=== PATIENT | female | born 1970 | race Caucasian/White ===

== ENCOUNTER 2016-10-17 19:27 | Emergency (ER) ==
[2016-10-17 19:35] VITALS: BP 119/77; TEMP 97.8; BMI 27.8
--- NOTE | 2016-10-17 19:52 | ED.PDOC ---
General ED Provider: Dr. BARBARA COLBERT Chief Complaint: Bite Stated Complaint: had spider bite couple days ago on the left breast, oozing some liquied now, no fever or chills Time Seen by Physician: 19:50 Mode of Arrival: Walk-In Information Source: Patient Primary Care Provider: BARBARA COLBERT[facility] Nursing and Triage Documentation Reviewed and Agree: Yes Skin Complaint Exam - Skin/Soft Tissue Complaint/Exam Symptoms Are: Still present Timing: Constant Initial Severity: Mild Current Severity: Mild Character: Reports: Redness. Denies: Swelling, Raised, Painful Aggravating: Reports: None Alleviating: Reports: None Associated Signs and Symptoms: Reports: Tenderness. Denies: Fever, Chills, Itching, Drainage, Bruising, Red streaks, Joint swelling Skin Findings: Present: Erythema. Absent: Induration, Fluctuant mass Differential Diagnoses: Cellulitis Review of Systems - Review Of Systems Constitutional: Reports: No symptoms Eyes: Reports: No symptoms Ears, Nose, Mouth, Throat: Reports: No symptoms Respiratory: Reports: No symptoms Cardiac: Reports: No symptoms GI: Reports: No symptoms : Reports: No symptoms Musculoskeletal: Reports: No symptoms Skin: Reports: No symptoms Neurological: Reports: No symptoms Endocrine: Reports: No symptoms Hematologic/Lymphatic: Reports: No symptoms All Other Systems: Reviewed and Negative Past Medical History - Past Medical History Previously Healthy: No Endocrine: Reports: None Cardiovascular: Reports: Hypertension Respiratory: Reports: None Hematological: Reports: None Gastrointestinal: Reports: GERD Genitourinary: Reports: None Neuro/Psych: Reports: Depression Musculoskeletal: Reports: None Cancer: Reports: None Last Menstrual Period: ABLATION - Surgical History General Surgical History: Reports: Orthopedic (09/24 knee) - Family History Family History: Reports: Hypertension, Diabetes - Social History Smoking Status: Current some day smoker Smoking Cessation Counseling Time: > 3 min - 10 min Hx Substance Use: No Alcohol Screening: None - Immunizations Tetanus Shot up to Date: No Physical Exam - Physical Exam Appearance: Well-appearing, No pain distress, Well-nourished Eyes: PENNY, EOMI, Conjunctiva clear ENT: Ears normal, Nose normal, Oropharynx normal Respiratory: Airway patent, Breath sounds clear, Breath sounds equal, Respirations nonlabored Cardiovascular: RRR, Pulses normal, No rub, No murmur GI/: Soft, Nontender, No masses, Bowel sounds normal, No Organomegaly Musculoskeletal: Normal strength, ROM intact, No edema, No calf tenderness Skin: Warm, Dry, Normal color Neurological: Sensation intact, Motor intact, Reflexes intact, Cranial nerves intact, Alert, Oriented Psychiatric: Affect appropriate, Mood appropriate Critical Care Note - Critical Care Note Total Time (mins): 0 Course - Course Orders, Labs, Meds: Orders Category Date Time Status WOUND CULTURE Stat LAB 10/17/16 19:48 Uncollected Clindamycin HCl [Cleocin] MEDS 10/17/16 19:48 Stat 300 mg PO ONCE STA Medications Discontinued Medications Generic Name Dose Route Start Last Admin Trade Name Freq PRN Reason Stop Dose Admin Clindamycin HCl 300 mg 10/17/16 19:48 Cleocin PO 10/17/16 19:49 ONCE STA Vital Signs: Temp Pulse Resp BP Pulse Ox 10/17/16 19:28 97.8 F 92 H 16 119/77 96 Departure - Departure Time of Disposition: 19:53 Disposition: HOME SELF-CARE Discharge Problem: Spider bite wound Qualifiers: Encounter type: initial encounter Injury intent: accidental or unintentional Qualifier Code: (T63.301A) Toxic effect of unspecified spider venom, accidental (unintentional), initial encounter Instructions: Cellulitis (ED) Condition: Stable Pt referred to PMD for follow-up: Yes Additional Instructions: Tylenol prn Take medication with food, take probiotics f/u in [facility] in 3 days with me Prescriptions: Clindamycin HCl 300 mg PO TID #15 capsule Allergies/Adverse Reactions: Allergies No Known Allergies Allergy (Unverified 10/17/16 19:36) Home Medications: Ambulatory Orders Venlafaxine HCl [Effexor Xr] 150 mg PO BID 12/01/12 Diphenhydramine HCl [Benadryl] 25 mg PO PRN 09/10/13 Clindamycin HCl 300 mg PO TID #15 capsule 10/17/16 Disposition Discussed With: Patient, Family
[2016-10-17] MEDS: CLEOCIN PO STA (20:01)
== END 2016-10-17 20:02 | disposition home or self-care (01) ==
LOC: ED 19:27
DX: T63.301A Toxic effect of unspecified spider venom, accidental (unintentional), initial encounter (principal); L03.313 Cellulitis of chest wall; F17.210 Nicotine dependence, cigarettes, uncomplicated
CPT/HCPCS: 87070; 99283

== ENCOUNTER 2016-12-13 16:07 | Emergency (ER) ==
[2016-12-13 16:14] VITALS: BP 117/78; TEMP 98.1; BMI 26.4
[2016-12-14 11:33] VITALS: BMI 26.1
== END 2016-12-13 17:38 | disposition left against medical advice (07) ==
LOC: ED 16:07
DX: R11.2 Nausea with vomiting, unspecified (principal); R53.1 Weakness

== ENCOUNTER 2016-12-14 08:31 | Inpatient (IN) ==
[2016-12-14] MEDS ORDERED: NORCO 10-325 PO STA (08:52)
[2016-12-14] MEDS ORDERED: DECADRON 4 MG/ML SDV IM STA (08:52)
[2016-12-14 09:24] LABS: BILIRUBIN,URINE Negative (NEGATIVE); KETONES,URINE Trace (NEGATIVE); LEUKOCYTE ESTERASE ,URINE Negative (NEGATIVE); NITRITE,URINE Negative (NEGATIVE); PROTEIN,URINE Trace (NEGATIVE); URINE, BLOOD Negative (NEGATIVE)
[2016-12-14 09:25] LABS: ADD URINE MICROSCOPIC YES
--- NOTE | 2016-12-14 09:25 | DI ---
EXAM: Chest two view, frontal and lateral views. HISTORY: Cough. COMPARISON: 12/03/2010. FINDINGS: The heart size is normal. There is no pulmonary vascular congestion. The lungs are clear . No pleural effusion or pneumothorax is seen. No acute osseous abnormality identified. Since the prior study, there has been no significant interval change. IMPRESSION: No acute cardiopulmonary process.
[2016-12-14 09:26] LABS: BACTERIA,URINE TRACE (NOT PRESENT)
[2016-12-14 09:32] LABS: BASOPHILS % (AUTO) 0.1 % (0.0-3.0); HEMATOCRIT 40.4 % (37.0-47.0); HEMOGLOBIN 14.4 g/dl (12.0-16.0); LYMPHOCYTES % (AUTO) 12.7 (10.0-50.0); MEAN CORPUSCULAR HEMOGLOBIN 32.1 pg (27.0-31.0); MEAN CORPUSCULAR HGB CONC 35.6 (31.8-35.4); MEAN CORPUSCULAR VOLUME 90.2 fl (81.0-99.0); MONOCYTES # (AUTO) 0.3 K/uL (0.4-2.0); MONOCYTES % (AUTO) 4.3 (0-10); NEUTROPHILS # (AUTO) 6.5 K/ul (2.0-6.9); NEUTROPHILS % (AUTO) 82.5; PLATELET COUNT 84 10^3/uL (140-440); RED BLOOD COUNT 4.48 10^6/ul (4.20-5.40); WHITE BLOOD COUNT 7.93 K/ul (4.6-10.2)
--- NOTE | 2016-12-14 09:33 | CT ---
EXAM: CT scan of the head without contrast HISTORY: Pain TECHNIQUE: Imaging of the head was performed without contrast. 5 mm thin axial images and coronal a nd sagittal images were provided for interpretation. FINDINGS: The thomas-white interface appears normal. No acute hemorrhages are seen. There is no mass effect. The basal cisterns are patent. The paranasal sinuses and mastoid air cells are clear. The calvarium and extracranial soft tissues are normal. IMPRESSION: No acute intracranial abnormalities are seen.
[2016-12-14 09:37] LABS: FLU INTERNAL QC INTERNAL QC VALID; RAPID FLU A NEGATIVE (NEGATIVE); RAPID FLU B NEGATIVE (NEGATIVE)
[2016-12-14 09:37] LABS: ANION GAP 13.7; BILIRUBIN,TOTAL 0.29 mg/dL (0.00-1.20); BUN/CREATININE RATIO 8.1; CALCIUM 8.9 mg/dL (8.2-10.2); CREATININE 0.74 mg/dL (0.60-1.30); POTASSIUM 2.7 mmol/L (3.5-5.10)
[2016-12-14 09:38] LABS: ALBUMIN 3.5 g/dL (3.4-5.0); ALBUMIN/GLOBULIN RATIO 0.97; TOTAL PROTEIN 7.1 g/dL (6.4-8.2)
--- NOTE | 2016-12-14 10:04 | ED.PDOC ---
General ED Provider: Dr. HIEN LAGUNAS Chief Complaint: Headache Stated Complaint: headache Time Seen by Physician: 08:45 Mode of Arrival: Walk-In Information Source: Patient Exam Limitations: No limitations [facility] and T[facility] Documentation Reviewed and Agree: Yes (seen with nursing staff at all times ) Neurological Complaint Exam - Headache Complaint/Exam Onset: Gradual Duration: 10 days flu like symptoms Symptoms Are: Still present Timing: Intermittent Episodes Lasting: Days Worst Headache Ever: No Initial Severity: Moderate Current Severity: Moderate Location: Frontal, Temporal Character: Reports: Dull, Typical headache Aggravating: Reports: None Alleviating: Reports: None Associated Signs and Symptoms: Reports: Nausea, Vomiting (x3). Denies: Dizziness, Seizure, Sinus pressure, Fever, Neck pain, Neck stiffness, Decreased LOC, Visual changes Related History: Reports: Similar episode Related Surgical History: Reports: None SAH Risk Factors: Reports: None Meningitis Risk Factors: Reports: None SDH Risk Factors: Reports: None Temporal Arteritis Risk Factors: Reports: Female, Normal Head CT Within Last 12 Months: No (none reported ) Fundoscopic Exam: Present: Normal Findings (nurse at bedside ) Papilledema Present: No Temporal Artery Tenderness: Present: None Sinus Tenderness: Present: None TMJ Tenderness: Present: None Glascow Coma Scale (see protocol): 15 Meningeal Signs Positive: No Pain on Passive Flexion-Positive Kernig's: No ROM Limited In: No Limitiations Focal Weakness: Present: None Focal Sensory Loss: Present: None Gait: Normal Nystagmus Present: No Gag Reflex Present: Yes Differential Diagnoses: Migraine, Viral Syndrome Review of Systems - Review Of Systems Constitutional: Reports: Malaise, Weakness Eyes: Reports: No symptoms Ears, Nose, Mouth, Throat: Reports: No symptoms Respiratory: Reports: No symptoms Cardiac: Reports: No symptoms GI: Reports: Nausea, Vomiting : Reports: No symptoms Musculoskeletal: Reports: No symptoms Skin: Reports: No symptoms Neurological: Reports: Headache Endocrine: Reports: No symptoms Hematologic/Lymphatic: Reports: No symptoms All Other Systems: Reviewed and Negative Past Medical History - Past Medical History Previously Healthy: No Endocrine: Reports: None Cardiovascular: Reports: Hypertension Respiratory: Reports: None Hematological: Reports: None Gastrointestinal: Reports: GERD Genitourinary: Reports: None Neuro/Psych: Reports: Depression Musculoskeletal: Reports: None Cancer: Reports: None Last Menstrual Period: ablation - Surgical History General Surgical History: Reports: Orthopedic (09/24 knee) - Family History Family History: Reports: Hypertension, Diabetes - Social History Smoking Status: Current every day smoker, Light tobacco smoker Hx Substance Use: No Alcohol Screening: None Physical Exam - Physical Exam Appearance: Well-appearing, No pain distress, Well-nourished Eyes: PENNY, EOMI, Conjunctiva clear ENT: Ears normal, Nose normal, Oropharynx normal Respiratory: Airway patent, Breath sounds clear, Breath sounds equal, Respirations nonlabored Cardiovascular: RRR, Pulses normal, No rub, No murmur GI/: Soft, Nontender, No masses, Bowel sounds normal, No Organomegaly Musculoskeletal: Normal strength, ROM intact, No edema, No calf tenderness Skin: Warm, Dry, Normal color Neurological: Sensation intact, Motor intact, Reflexes intact, Cranial nerves intact, Alert, Oriented Psychiatric: Affect appropriate, Mood appropriate Interpretation - Radiology Interpretation Radiology Interpretation By: Radiologist Radiology Results: No acute changes Physician Notification - Case Discussed Physician Notified: tenzin Time of Notification: 10:04 (admitt) Admit To: Inpatient Critical Care Note - Critical Care Note Total Time (mins): 0 Course - Course Hematology/Chemistry: 12/14/16 08:55 12/14/16 08:55 Orders, Labs, Meds: Lab Review 12/14/16 12/14/16 12/14/16 08:50 08:55 08:55 WBC 7.93 RBC 4.48 Hgb 14.4 Hct 40.4 MCV 90.2 MCH 32.1 H MCHC 35.6 H RDW Coeff of Michael 13.2 Plt Count 84 L Immature Gran % (Auto) 0.0 Neut % (Auto) 82.5 Lymph % (Auto) 12.7 [place] % (Auto) 4.3 Eos % (Auto) 0.0 Baso % (Auto) 0.1 Immature Gran # (Auto) 0.0 Neut # 6.5 Lymph # 1.0 [place] # 0.3 L Eos # 0.0 Baso # 0.0 Sodium 134 L Potassium 2.7 L* Chloride 96 L Carbon Dioxide 27 Anion Gap 13.7 BUN 6 L Creatinine 0.74 Estimated GFR (MDRD) 84.00 BUN/Creatinine Ratio 8.10 Glucose 106 Calcium 8.9 Total Bilirubin 0.29 AST 23 ALT 27 Alkaline Phosphatase 87 Total Protein 7.1 Albumin 3.5 Globulin 3.6 Albumin/Globulin Ratio 0.97 Urine Color Urine Clarity Urine pH Ur Specific [place] Urine Protein Urine Glucose (UA) Urine Ketones Urine Blood Urine Nitrite Urine Bilirubin Urine Urobilinogen Ur Leukocyte Esterase Urine Microscopic WBC Ur Squamous Epith Cells Amorphous Sediment Urine Bacteria Influenza A (Rapid) Negative Influenza B (Rapid) Negative 12/14/16 08:55 WBC RBC Hgb Hct MCV MCH MCHC RDW Coeff of Michael Plt Count Immature Gran % (Auto) Neut % (Auto) Lymph % (Auto) [place] % (Auto) Eos % (Auto) Baso % (Auto) Immature Gran # (Auto) Neut # Lymph # [place] # Eos # Baso # Sodium Potassium Chloride Carbon Dioxide Anion Gap BUN Creatinine Estimated GFR (MDRD) BUN/Creatinine Ratio Glucose Calcium Total Bilirubin AST ALT Alkaline Phosphatase Total Protein Albumin Globulin Albumin/Globulin Ratio Urine Color Yellow Urine Clarity Clear Urine pH 6.0 Ur Specific [place] 1.015 Urine Protein Trace Urine Glucose (UA) Negative Urine Ketones Trace Urine Blood Negative Urine Nitrite Negative Urine Bilirubin Negative Urine Urobilinogen 0.2 Ur Leukocyte Esterase Negative Urine Microscopic WBC 2-5 Ur Squamous Epith Cells 10-20 Amorphous Sediment 1+ Urine Bacteria Trace Influenza A (Rapid) Influenza B (Rapid) Orders Category Date Time Status CBC W/ AUTO DIFF Stat LAB 12/14/16 08:51 Ordered COMPREHENSIVE METABOLIC PANEL Stat LAB 12/14/16 08:51 Ordered MOLECULAR GROUP A STREP Stat LAB 12/14/16 08:50 Results RAPID FLU A/B Stat LAB 12/14/16 08:52 Uncollected STREP SCREEN Stat LAB 12/14/16 08:52 Uncollected URINALYSIS C & S IF INDICATED Stat LAB 12/14/16 08:51 Uncollected Dexamethasone 4 mg/ml Inj [Decadron 4 mg/ml Sdv] MEDS 12/14/16 08:52 Stat 4 mg IM ONCE STA Hydrocodone Bit/Acetaminophen [[place] 10-325] MEDS 12/14/16 08:52 Stat 1 tab PO ONCE STA CHEST, 2 VIEWS PA & LAT Stat RADS 12/14/16 08:[address] HEAD W/O CONTRAST Stat RADS 12/14/16 08:51 Ordered Medications Discontinued Medications Generic Name Dose Route Start Last Admin Trade Name Freq PRN Reason Stop Dose Admin Acetaminophen/Hydrocodone Bitart 1 tab 12/14/16 08:52 12/14/16 09:22 [place] 10-325 PO 12/14/16 08:53 1 tab ONCE STA Administration Dexamethasone Sodium Phosphate 4 mg 12/14/16 08:52 12/14/16 09:24 Decadron 4 Mg/Ml Sdv IM 12/14/16 08:53 4 mg ONCE STA Administration Vital Signs: Temp Pulse Resp BP Pulse Ox 12/14/16 08:42 99.6 F 127 H 20 107/64 90 L Departure - Departure Time of Disposition: 10:04 Disposition: ADMITTED INPATIENT Discharge Problem: Headache, Hypokalemia Instructions: Acute Headache (ED) Condition: Good Pt referred to PMD for follow-up: Yes Additional Instructions: Please call your Family Physician as soon as possible to schedule a follow-up appointment. Allergies/Adverse Reactions: Allergies Latex, Natural Rubber Adverse Reaction (Verified 12/14/16 08:47) Home Medications: Ambulatory Orders Venlafaxine HCl [Effexor Xr] 150 mg PO BID 12/01/12 Diphenhydramine HCl [Benadryl] 25 mg PO PRN 09/10/13 Disposition Discussed With: Patient
[2016-12-14] MEDS ORDERED: POTASSIUM CHLORIDE PREMIX RUN 10 MEQ in PREMIX 100 ML WATER 1 BAG IV STA (10:08)
[2016-12-14] MEDS ORDERED: SODIUM CHLORIDE 1,500 ML IV SCH (10:30)
[2016-12-14] MEDS ORDERED: POTASSIUM CHLORIDE PREMIX RUN 100 ML IV ONE (10:37)
[2016-12-14 11:33] VITALS: BMI 26.1
[2016-12-14] MEDS ORDERED: EFFEXOR XR PO SCH (12:00)
[2016-12-14] MEDS: ZOFRAN 4 MG/2 ML IVP PRN (12:13)
[2016-12-14] MEDS ORDERED: NON-FORMULARY MEDICATION (Alprazolam [Xanax] 1 MG) PO SCH ×22 (13:00)
[2016-12-14] MEDS ORDERED: XANAX PO SCH (13:00)
[2016-12-14 13:34] LABS: ANION GAP 13.2; BUN/CREATININE RATIO 8.21; CALCIUM 8.6 mg/dL (8.2-10.2); CREATININE 0.73 mg/dL (0.60-1.30); POTASSIUM 3.2 mmol/L (3.5-5.10)
[2016-12-14] MEDS: XANAX PO SCH ×3 (14:32→20:39)
[2016-12-14] MEDS ORDERED: DUONEB NEB ONE (16:55)
[2016-12-14] MEDS: PREDNISONE PO SCH (17:19)
[2016-12-14] MEDS: DUONEB NEB SCH ×2 (17:34→23:07)
[2016-12-14] MEDS: SODIUM CHLORIDE 1,000 ML IV SCH ×2 (18:01→20:44)
[2016-12-14] MEDS: EFFEXOR XR PO SCH (20:38)
[2016-12-14] MEDS ORDERED: NON-FORMULARY MEDICATION (Venlafaxine Hcl [Effexor Xr] 150 MG) PO SCH ×22 (21:00)
[2016-12-15] MEDS: DUONEB NEB SCH ×4 (04:58→23:19)
[2016-12-15 05:18] LABS: BASOPHILS % (AUTO) 0.1 % (0.0-3.0); HEMATOCRIT 36.3 % (37.0-47.0); HEMOGLOBIN 12.5 g/dl (12.0-16.0); IMMATURE GRANULOCYTE % (AUTO) 0.4 % (0.0-5.0); LYMPHOCYTES # (AUTO) 1.1 K/uL (0.60-3.4); LYMPHOCYTES % (AUTO) 12.7 (10.0-50.0); MEAN CORPUSCULAR HEMOGLOBIN 31.4 pg (27.0-31.0); MEAN CORPUSCULAR HGB CONC 34.4 (31.8-35.4); MEAN CORPUSCULAR VOLUME 91.2 fl (81.0-99.0); MONOCYTES # (AUTO) 0.4 K/uL (0.4-2.0); MONOCYTES % (AUTO) 5.1 (0-10); NEUTROPHILS % (AUTO) 81.7; PLATELET COUNT 92 10^3/uL (140-440); RED BLOOD COUNT 3.98 10^6/ul (4.20-5.40); WHITE BLOOD COUNT 8.57 K/ul (4.6-10.2)
[2016-12-15 05:38] LABS: ALBUMIN/GLOBULIN RATIO 0.81; ANION GAP 11.3; BILIRUBIN,TOTAL 0.25 mg/dL (0.00-1.20); BUN/CREATININE RATIO 9.23; CALCIUM 8.7 mg/dL (8.2-10.2); CREATININE 0.65 mg/dL (0.60-1.30); POTASSIUM 3.3 mmol/L (3.5-5.10); TOTAL PROTEIN 6.7 g/dL (6.4-8.2)
[2016-12-15] MEDS ORDERED: DECADRON 4 MG/ML SDV IM STA (08:23)
[2016-12-15] MEDS ORDERED: POTASSIUM CHLORIDE PREMIX RUN 40 MEQ in PREMIX 100 ML WATER 2 BAG IV STA (08:23)
[2016-12-15] MEDS ORDERED: SODIUM CHLORIDE 0.9%-KCL 20 MEQ 1,000 ML IV SCH (08:30)
[2016-12-15] MEDS: EFFEXOR XR PO SCH ×2 (09:02→20:08)
[2016-12-15] MEDS: PREDNISONE PO SCH ×2 (09:02→17:27)
[2016-12-15] MEDS: ZOFRAN 4 MG/2 ML IVP PRN ×2 (09:23→18:59)
[2016-12-15] MEDS: MUCINEX PO SCH ×2 (09:24→20:08)
[2016-12-15] MEDS ORDERED: ZOFRAN 4 MG/2 ML IVP STA (12:00)
[2016-12-15] MEDS: XANAX PO SCH ×4 (13:05→20:09)
[2016-12-15] MEDS: SODIUM CHLORIDE 1,000 ML IV SCH (15:07)
[2016-12-16] MEDS: DUONEB NEB SCH (04:48)
[2016-12-16 05:15] VITALS: BP 116/79; TEMP 96.8
[2016-12-16 06:04] LABS: HEMOGLOBIN 11.7 g/dl (12.0-16.0); IMMATURE GRANULOCYTE % (AUTO) 0.4 % (0.0-5.0); LYMPHOCYTES # (AUTO) 0.9 K/uL (0.60-3.4); LYMPHOCYTES % (AUTO) 9.2 (10.0-50.0); MEAN CORPUSCULAR HEMOGLOBIN 31.6 pg (27.0-31.0); MEAN CORPUSCULAR HGB CONC 34.4 (31.8-35.4); MEAN CORPUSCULAR VOLUME 91.9 fl (81.0-99.0); MONOCYTES # (AUTO) 0.4 K/uL (0.4-2.0); MONOCYTES % (AUTO) 4.2 (0-10); NEUTROPHILS # (AUTO) 8.5 K/ul (2.0-6.9); NEUTROPHILS % (AUTO) 86.2; PLATELET COUNT 103 10^3/uL (140-440); WHITE BLOOD COUNT 9.84 K/ul (4.6-10.2)
[2016-12-16 06:18] LABS: ALBUMIN 2.9 g/dL (3.4-5.0); ALBUMIN/GLOBULIN RATIO 0.76; ANION GAP 7.5; BILIRUBIN,TOTAL 0.22 mg/dL (0.00-1.20); BUN/CREATININE RATIO 7.69; CALCIUM 8.9 mg/dL (8.2-10.2); CREATININE 0.65 mg/dL (0.60-1.30); POTASSIUM 3.5 mmol/L (3.5-5.10); TOTAL PROTEIN 6.7 g/dL (6.4-8.2)
[2016-12-16] MEDS: EFFEXOR XR PO SCH (08:42)
[2016-12-16] MEDS: XANAX PO SCH (08:42)
[2016-12-16] MEDS: PREDNISONE PO SCH (08:42)
[2016-12-16] MEDS: MUCINEX PO SCH (08:42)
--- NOTE | 2016-12-16 14:07 | HP ---
DATE OF SERVICE: 12/14/16 CHIEF COMPLAINT: Nausea and vomiting HISTORY OF PRESENT ILLNESS: This is a 46 year old female who started having the upper respiratory infection and started getting better then started with the vomiting and vomiting whatever she was eating; nonbloody and nonbilious. Diarrhea was watery and non bloody and abdominal cramps. She came to the emergency room with headaches and dehydration like symptoms. She was seen by Dr. Vernon in the emergency room. Potassium was 2.7, BUN 6. Chest x-ray and CT head was negative. At that time the patient was admitted to the hospital for the IV fluids and upper respiratory infection and intractable nausea and vomiting. REVIEW OF SYSTEMS: CONSTITUTIONAL: No fever, no chills. Weakness and tiredness. HEENT: Normal. ENDOCRINE: No weight gain; no weight loss. CVS: No chest pain. No PND, no orthopnea. No shortness of breath. No PND, no orthopnea. RESPIRATORY: Coughing and congestion. No hemoptysis. GI: Nausea and vomiting. No melena. Diarrhea and abdominal cramps. : No hematuria. No polyuria. MUSCULOSKELETAL: No joint swelling. PSYCHIATRIC: Not anxious. No depression. No suicidal thoughts. No homicidal thoughts. SKIN: Intact, no open lesions. PAST MEDICAL HISTORY: Hypertension Dyslipidemia Sleep apnea on CPAP GERD Osteoarthritis DJD spine Depression Anxiety PAST SURGICAL HISTORY: Knee surgery Ablation Tubal ligation PERSONAL HISTORY: The patient does not smoke or drink. Family history is significant for the heart problems and diabetes. MEDICATIONS: Effexor Benadryl Vistaril Xanax Cyclobenzaprine Hyzaar ALLERGIES: Latex Natural rubber PHYSICAL EXAMINATION: V/S: Blood pressure 124/74, respiratory rate 20, heart rate 62, saturation 96 on the room air. HEENT: Atraumatic, normocephalic. No scleral icterus. Pallor positive. Mucosa dry. NECK: Supple. No JVD, no bruit. No lymphadenopathy. No thyromegaly. HEART: S1, S2 normal. No murmur. No cyanosis or clubbing. No ascites. LUNGS: Decreased and basilar crackles. Clear to auscultation. No rales or rhonchi. ABDOMEN: Soft, nontender. Bowel sounds are active. No CVA tenderness. No rigidity or guarding. EXTREMITIES: No cyanosis, clubbing or pedal edema. MUSCULOSKELETAL: Normal joints, no swelling. NEUROLOGIC: The patient is SKIN: Intact; no open lesions. LYMPHATIC: No lymph nodes palpable. LABS: Sodium 134, potassium 2.7, chloride 96, bicarb 27, BUN 6, creatinine 0.74, WBC 7.93, hgb 14.4, hct 40.4, plt count 84. ASSESSMENT: 1. Severe hypokalemia 2. Dehydration 3. Upper respiratory infections 4. Coronary artery disease 5. Hypertension 6. Dyslipidemia 7. Depression 8. Anxiety PLAN: 1. Admit the patient to the regular floor 2. CBC and CMP today and daily 3. Cardiac enzymes and Troponin 4. Decadron 5. DUO NEBS 6. IV fluids, replace potassium 7. Daily I&O's Will follow the patient in daily rounds. TIME SPENT: MORE THAN 70 minutes [id number]
--- NOTE | 2016-12-19 08:27 | PN ---
DATE OF SERVICE: 12/15/16 SUBJECTIVE: The patient was admitted with severe hypokalemia, gastroenteritis and respiratory infection. Potassium is 3.3 and still having cough and congestion getting lots of phlegm. REVIEW OF SYSTEMS: CONSTITUTIONAL: No fever, no chills. HEENT: Normal. ENDOCRINE: No weight gain, no weight loss. CVS: No angina symptoms. No CHF symptoms. No palpitations. No atypical chest pain for CAD. No shortness of breath. No PND, no orthopnea. RESPIRATORY: No cough, no hemoptysis. GI: No nausea, no vomiting. No abdominal pain. : No hematuria. No polyuria. MUSCULOSKELETAL:. No joint swelling. PSYCHIATRIC: Not anxious. No depression. No suicidal thoughts. No homicidal thoughts. SKIN: Intact. No rash. PHYSICAL EXAMINATION: V/S: Blood pressure 120/70, respiratory rate 20, heart rate 90, temperature 98.2 with saturation 97%. HEENT: Normocephalic, atraumatic. Mucosa . NECK: Supple. No JVD, no carotid bruit. No lymphadenopathy. LUNGS: Bilateral lungs basilar crackles are present. No rales or rhonchi. HEART: S1, S2 normal. No S3. No murmur, gallop or regurgitation. ABDOMEN: Soft, nontender. Bowel sounds active. No rigidity. No rebound or guarding. No CVA tenderness. EXTREMITIES: No clubbing, cyanosis or pedal edema. MUSCULOSKELETAL: No joint swelling. NEUROLOGIC: Awake, alert, oriented times three. No focal deficit. LYMPHATIC: No lymph nodes palpable. SKIN: Intact. LABS: Sodium 137, Potassium 3.3, chloride 100, bicarb 29, BUN 6, creatinine 0.65, WBC 8.57, hgb 12.5, hct 26.3, plt count 92. ASSESSMENT: 1. Status post gastroenteritis 2. Dehydration 3. Severe hypokalemia which is getting better 4. Upper respiratory infection 5. Thrombocytopenia PLAN: 1. IV fluids with potassium 2. Continue the breathing treatments and steroids 3. Mucinex Will follow the patient in daily rounds. TIME SPENT: More than 35 minutes MTDD
--- NOTE | 2017-01-24 08:22 | DS ---
DATE OF SERVICE: 12/16/16 FINAL DIAGNOSIS: 1. Severe hypokalemia 2. Upper respiratory infection 3. Gastritis 4. Anxiety 5. Depression 6. Panic attacks, sees Dr. Celaya 7. Hypertension 8. Chronic back pain 9. Knee surgery 09/26 10. Tubal ligation 11. Uterine ablation 12.History of smoker DISCHARGE INSTRUCTIONS: Continue the rest of the home medications. MEDICATIONS AT DISCHARGE: Cozaar Atrovent Cyclobenzaprine Xanax Effexor NEW PRESCRIPTIONS: Atrovent two puffs three times a day PRN Prednisone 10mg twice a day Keflex 500mg Q 12 hours. DIET INSTRUCTIONS: Soft, increase the diet as tolerated ACTIVITY: as much as tolerated SMOKING: Former Smoker DISEASE SPECIFIC EDUCATION: Severe hypokalemia Coronary side effects been discussed and verbalized understanding. HOSPITAL COURSE: Lexie Lopez who has been having some upper respiratory infection cough and congestion and then her migraine headache was started. Then she started vomiting and not able to keep anything down came to the emergency room and potassium was 2.7, BUN and creatinine was normal, Urine negative, serology was negative and at that time the patient was admitted to the hospital for severe hypokalemia and upper respiratory infection. Potassium been replaced, Zofran was given, Dexamethasone was given and DUO NEBS was given. With the breathing treatments and steroids that patient started feeling better. Zofran did really help the patient, vomiting resolved. Potassium came from 2.7 to 3.2, 3.3 and 3.5. The patient was able to keep the appetite, soft diet and did not have any problems. At that time the patient being discharged home. TIME SPENT: MORE THAN 55-60 MINUTES [facility]
== END 2016-12-16 09:35 | disposition home or self-care (01) | DRG 641 ==
LOC: ED 08:31 → MEDSURG B 10:39
PROVIDERS: ADMIT Emergency Medicine; ATTEND Emergency Medicine
DX: E87.6 Hypokalemia (principal); J06.9 Acute upper respiratory infection, unspecified; E86.0 Dehydration; K29.70 Gastritis, unspecified, without bleeding; G43.909 Migraine, unspecified, not intractable, without status migrainosus; D69.6 Thrombocytopenia, unspecified; I10 Essential (primary) hypertension; F41.8 Other specified anxiety disorders; F41.0 Panic disorder [episodic paroxysmal anxiety]; M54.9 Dorsalgia, unspecified; G89.29 Other chronic pain; F17.200 Nicotine dependence, unspecified, uncomplicated
CPT/HCPCS: 36415; 80048; 80053; 81001; 85025; 87651; 87804; 87880; 93005; 93010; 94640; 96365; 99284

== ENCOUNTER 2016-12-19 17:38 | Inpatient (IN) ==
[2016-12-19] MEDS ORDERED: ZOFRAN 4 MG/2 ML IV STA (17:50)
[2016-12-19] MEDS ORDERED: DILAUDID 1 MG/ML SYRINGE IVP STA ×2 (17:50→19:40)
[2016-12-19] MEDS ORDERED: DILAUDID 1 MG/ML SYRINGE ONE (17:51)
[2016-12-19] MEDS ORDERED: ZOFRAN 4 MG/2 ML ONE (17:51)
--- NOTE | 2016-12-19 18:01 | ED.PDOC ---
General ED Provider: Dr. HIEN LAGUNAS Chief Complaint: Headache Stated Complaint: headache Time Seen by Physician: 17:40 (sudden severe head ache 1 hr ago) Mode of Arrival: Ambulance Information Source: Patient, Family Exam Limitations: No limitations Primary Care Provider: BARBARA CAMPBELL Referred to ED by: Other (last eaten about 2:30 pm, ) Nursing and Triage Documentation Reviewed and Agree: Yes (she had just taken a bath about to watch tv ) Neurological Complaint Exam - Headache Complaint/Exam Onset: Gradual Duration: headache started 1 hr ago at rest Symptoms Are: Still present (discharged from hospital on monday was admitted for hyokalemia) Timing: Constant (x 1 hr) Episodes Lasting: Minutes (1 hr) Worst Headache Ever: Yes Initial Severity: Severe Current Severity: Severe Location: Diffuse Character: Reports: Throbbing Aggravating: Reports: None, Bright lights Alleviating: Reports: Medications Associated Signs and Symptoms: Reports: Nausea (no head injury). Denies: Dizziness, Seizure, Vomiting, Sinus pressure, Fever, Neck pain (no actual fall stated she went down), Neck stiffness, Decreased LOC, Visual changes Related History: Reports: Recent trauma (is possible ) Related Surgical History: Reports: None SAH Risk Factors: Reports: Family history (her mother had a brain aneurysm) SDH Risk Factors: Reports: None Temporal Arteritis Risk Factors: Reports: Female, Normal Head CT Within Last 12 Months: No Fundoscopic Exam: Present: Normal Findings Papilledema Present: No Temporal Artery Tenderness: Present: None Sinus Tenderness: Present: None TMJ Tenderness: Present: None Glascow Coma Scale (see protocol): 15 Meningeal Signs Positive: No Pain on Passive Flexion-Positive Kernig's: No ROM Limited In: No Limitiations Focal Weakness: Present: None Focal Sensory Loss: Present: None Gait: Normal Nystagmus Present: No Gag Reflex Present: Yes [id number]: Normal Findings Romberg Test Positive: No (unable) Babinski Sign: Negative Right, Negative Left Differential Diagnoses: Migraine, Subarachnoid Hemorrhage, Tension Headache Review of Systems - Review Of Systems Constitutional: Reports: No symptoms Eyes: Reports: No symptoms Ears, Nose, Mouth, Throat: Reports: No symptoms Respiratory: Reports: No symptoms Cardiac: Reports: No symptoms GI: Reports: Nausea, Vomiting : Reports: No symptoms Musculoskeletal: Reports: No symptoms Skin: Reports: No symptoms Neurological: Reports: Headache Endocrine: Reports: No symptoms Hematologic/Lymphatic: Reports: No symptoms All Other Systems: Reviewed and Negative Past Medical History - Past Medical History Previously Healthy: No Endocrine: Reports: None Cardiovascular: Reports: Hypertension Respiratory: Reports: None Hematological: Reports: None Gastrointestinal: Reports: GERD Genitourinary: Reports: None Neuro/Psych: Reports: Depression Musculoskeletal: Reports: None Cancer: Reports: None Last Menstrual Period: n/a - Surgical History General Surgical History: Reports: Orthopedic (09/24 knee) - Family History Family History: Reports: Hypertension, Diabetes - Social History Smoking Status: Current every day smoker, Light tobacco smoker Hx Substance Use: No Alcohol Screening: None Physical Exam - Physical Exam Appearance: Well-appearing, No pain distress, Well-nourished Eyes: PENNY, EOMI, Conjunctiva clear ENT: Ears normal, Nose normal, Oropharynx normal Respiratory: Airway patent, Breath sounds clear, Breath sounds equal, Respirations nonlabored Cardiovascular: RRR, Pulses normal, No rub, No murmur GI/: Soft, Nontender, No masses, Bowel sounds normal, No Organomegaly Musculoskeletal: Normal strength, ROM intact, No edema, No calf tenderness Skin: Warm, Dry, Normal color Neurological: Sensation intact, Motor intact, Reflexes intact, Cranial nerves intact, Alert, Oriented Psychiatric: Affect appropriate, Mood appropriate Physician Notification - Case Discussed Physician Notified: tenzin Time of Notification: 19:00 Critical Care Note - Critical Care Note Total Time (mins): 0 Course - Course Hematology/Chemistry: 12/20/16 01:50 12/20/16 01:50 Orders, Labs, Meds: Lab Review 12/19/16 12/19/16 12/19/16 18:00 18:00 18:00 WBC 13.42 H RBC 4.22 Hgb 13.4 Hct 37.2 MCV 88.2 MCH 31.8 H MCHC 36.0 H RDW Coeff of Michael 12.9 Plt Count 304 Immature Gran % (Auto) 1.3 Neut % (Auto) 74.8 Lymph % (Auto) 17.5 [place] % (Auto) 6.2 Eos % (Auto) 0.1 Baso % (Auto) 0.1 Immature Gran # (Auto) 0.2 Neut # 10.0 H Lymph # 2.4 [place] # 0.8 Eos # 0.0 Baso # 0.0 APTT Sodium 138 Potassium 2.3 L* Chloride 97 L Carbon Dioxide 26 Anion Gap 17.3 BUN 9 Creatinine 0.83 Estimated GFR (MDRD) 74.00 BUN/Creatinine Ratio 10.84 Glucose 108 Lactic Acid Calcium 9.5 Magnesium Total Bilirubin 0.48 AST 11 L ALT 20 Alkaline Phosphatase 67 Total Creatine Kinase 46 Troponin I 0.0190 Total Protein 7.2 Albumin 3.2 L Globulin 4.0 Albumin/Globulin Ratio 0.80 Procalcitonin < 0.05 Influenza A (Rapid) Influenza B (Rapid) 12/19/16 12/19/16 12/19/16 18:00 18:00 18:30 WBC RBC Hgb Hct MCV MCH MCHC RDW Coeff of Michael Plt Count Immature Gran % (Auto) Neut % (Auto) Lymph % (Auto) [place] % (Auto) Eos % (Auto) Baso % (Auto) Immature Gran # (Auto) Neut # Lymph # [place] # Eos # Baso # APTT 22.5 L Sodium Potassium Chloride Carbon Dioxide Anion Gap BUN Creatinine Estimated GFR (MDRD) BUN/Creatinine Ratio Glucose Lactic Acid 14.2 Calcium Magnesium 1.3 L Total Bilirubin AST ALT Alkaline Phosphatase Total Creatine Kinase Troponin I Total Protein Albumin Globulin Albumin/Globulin Ratio Procalcitonin Influenza A (Rapid) Influenza B (Rapid) 12/19/16 18:40 WBC RBC Hgb Hct MCV MCH MCHC RDW Coeff of Michael Plt Count Immature Gran % (Auto) Neut % (Auto) Lymph % (Auto) [place] % (Auto) Eos % (Auto) Baso % (Auto) Immature Gran # (Auto) Neut # Lymph # [place] # Eos # Baso # APTT Sodium Potassium Chloride Carbon Dioxide Anion Gap BUN Creatinine Estimated GFR (MDRD) BUN/Creatinine Ratio Glucose Lactic Acid Calcium Magnesium Total Bilirubin AST ALT Alkaline Phosphatase Total Creatine Kinase Troponin I Total Protein Albumin Globulin Albumin/Globulin Ratio Procalcitonin Influenza A (Rapid) Negative Influenza B (Rapid) Negative Orders Category Date Time Status ADMIT PATIENT INPATIENT .TO [facility] (MONITORED BED) ADMISSION 12/19/16 19: 19 Active EKG-(ED ONLY) Stat CARDIO 12/19/16 18:01 Completed EKG-(ED ONLY) Stat CARDIO 12/19/16 18:57 Completed EKG-(IP & OP ONLY) DAILY CARDIO 12/20/16 06:00 Completed EKG-(IP & OP ONLY) DAILY CARDIO 12/21/16 06:00 Ordered NEBULIZER TREATMENT Routine CARDIO 12/19/16 19:21 Active OXYGEN Routine CARDIO 12/19/16 19:20 Active ACTIVITY .BR with BRP CARE 12/19/16 19:19 Active INTAKE & OUTPUT Q8HR CARE 12/19/16 19:19 Active TELEMETRY MONITORING TELE CARE 12/19/16 19:19 Active VITAL SIGNS Q4HR CARE 12/19/16 19:19 Active NOTHING BY MOUTH DIETARY 12/19/16 Breakfast Ordered BLOOD CULTURE Stat LAB 12/19/16 18:40 Received CBC W/ AUTO DIFF DAILY@0600 LAB 12/20/16 01:50 Completed CBC W/ AUTO DIFF DAILY@0600 LAB 12/21/16 06:00 Ordered CBC W/ AUTO DIFF DAILY@0600 LAB 12/22/16 06:00 Ordered CBC W/ AUTO DIFF DAILY@0600 LAB 12/23/16 06:00 Ordered CBC W/ AUTO DIFF DAILY@0600 LAB 12/24/16 06:00 Ordered CBC W/ AUTO DIFF DAILY@0600 LAB 12/25/16 06:00 Ordered CBC W/ AUTO DIFF DAILY@0600 LAB 12/26/16 06:00 Ordered CBC W/ AUTO DIFF DAILY@0600 LAB 12/27/16 06:00 Ordered CBC W/ AUTO DIFF DAILY@0600 LAB 12/28/16 06:00 Ordered CBC W/ AUTO DIFF DAILY@0600 LAB 12/29/16 06:00 Ordered CBC W/ AUTO DIFF DAILY@0600 LAB 12/30/16 06:00 Ordered CBC W/ AUTO DIFF DAILY@0600 LAB 12/31/16 06:00 Ordered CBC W/ AUTO DIFF DAILY@0600 LAB 01/01/17 06:00 Ordered CBC W/ AUTO DIFF DAILY@0600 LAB 01/02/17 06:00 Ordered CBC W/ AUTO DIFF DAILY@0600 LAB 01/03/17 06:00 Ordered CBC W/ AUTO DIFF DAILY@0600 LAB 01/04/17 06:00 Ordered CBC W/ AUTO DIFF DAILY@0600 LAB 01/05/17 06:00 Ordered CBC W/ AUTO DIFF DAILY@0600 LAB 01/06/17 06:00 Ordered CBC W/ AUTO DIFF DAILY@0600 LAB 01/07/17 06:00 Ordered CBC W/ AUTO DIFF DAILY@0600 LAB 01/08/17 06:00 Ordered CBC W/ AUTO DIFF Stat LAB 12/19/16 18:00 Completed COMPREHENSIVE METABOLIC PANEL DAILY@0600 LAB 12/20/16 01:50 Completed COMPREHENSIVE METABOLIC PANEL DAILY@0600 LAB 12/21/16 06:00 Ordered COMPREHENSIVE METABOLIC PANEL DAILY@0600 LAB 12/22/16 06:00 Ordered COMPREHENSIVE METABOLIC PANEL DAILY@0600 LAB 12/23/16 06:00 Ordered COMPREHENSIVE METABOLIC PANEL DAILY@0600 LAB 12/24/16 06:00 Ordered COMPREHENSIVE METABOLIC PANEL DAILY@0600 LAB 12/25/16 06:00 Ordered COMPREHENSIVE METABOLIC PANEL DAILY@0600 LAB 12/26/16 06:00 Ordered COMPREHENSIVE METABOLIC PANEL DAILY@0600 LAB 12/27/16 06:00 Ordered COMPREHENSIVE METABOLIC PANEL DAILY@0600 LAB 12/28/16 06:00 Ordered COMPREHENSIVE METABOLIC PANEL DAILY@0600 LAB 12/29/16 06:00 Ordered COMPREHENSIVE METABOLIC PANEL DAILY@0600 LAB 12/30/16 06:00 Ordered COMPREHENSIVE METABOLIC PANEL DAILY@06 LAB 12/31/16 06:00 Ordered COMPREHENSIVE METABOLIC PANEL DAILY@0600 LAB 01/01/17 06:00 Ordered COMPREHENSIVE METABOLIC PANEL DAILY@0600 LAB 01/02/17 06:00 Ordered COMPREHENSIVE METABOLIC PANEL DAILY@0600 LAB 01/03/17 06:00 Ordered COMPREHENSIVE METABOLIC PANEL DAILY@0600 LAB 01/04/17 06:00 Ordered COMPREHENSIVE METABOLIC PANEL DAILY@0600 LAB 01/05/17 06:00 Ordered COMPREHENSIVE METABOLIC PANEL DAILY@0600 LAB 01/06/17 06:00 Ordered COMPREHENSIVE METABOLIC PANEL DAILY@0600 LAB 01/07/17 06:00 Ordered COMPREHENSIVE METABOLIC PANEL DAILY@0600 LAB 01/08/17 06:00 Ordered COMPREHENSIVE METABOLIC PANEL Stat LAB 12/19/16 18:00 Completed CREATINE KINASE Q8H LAB 12/20/16 01:50 Completed CREATINE KINASE Q8H LAB 12/20/16 09:25 Completed CREATINE KINASE Stat LAB 12/19/16 18:00 Completed LACTIC ACID Stat LAB 12/19/16 18:00 Completed MAGNESIUM Stat LAB 12/19/16 18:30 Completed PARTIAL THROMBOPLASTIN TIME Stat LAB 12/19/16 18:00 Completed PROCALCITONIN Stat LAB 12/19/16 18:00 Completed RAPID FLU A/B Stat LAB 12/19/16 18:40 Completed TROPONIN I Q8H LAB 12/20/16 01:50 Completed TROPONIN I Q8H LAB 12/20/16 09:25 Completed TROPONIN I Stat LAB 12/19/16 18:00 Completed URINALYSIS C & S IF INDICATED Stat LAB 12/19/16 22:19 Completed Acetaminophen [Tylenol] MEDS 12/19/16 19:19 Active 650 mg PO Q4H PRN Alprazolam [Xanax] MEDS 12/19/16 21:00 Discontinued 1 mg PO QID Ceftriaxone Sodium [Rocephin] 1 gm MEDS 12/19/16 19:30 Discontinued 0.9 % Sodium Chloride [Sodium Chloride] 50 ml IV DAILY Hydromorphone HCl [Dilaudid 1 mg/ml Syringe] MEDS 12/19/16 17:50 Discontinued 0.5 mg IVP ONCE STA Hydromorphone HCl [Dilaudid 1 mg/ml Syringe] MEDS 12/19/16 17:51 Discontinued 1 mg .ROUTE .STK-MED ONE Ipratropium/Albuterol Neb [Duoneb] MEDS 12/20/16 00:00 Active 1 vial NEB RTQ6H Methylprednisolone Sod Succ/Pf [Solu-Medrol 40 mg] MEDS 12/19/16 19:30 Discontinued 40 mg IVP Q8H Morphine Sulfate [Morphine 2 mg/ml Syringe] MEDS 12/19/16 21:00 Active 2 mg IVP Q8HR Ondansetron HCl/Pf [Zofran 4 mg/2 ml] MEDS 12/19/16 17:51 Discontinued 4 mg .ROUTE .STK-MED ONE Ondansetron HCl/Pf [Zofran 4 mg/2 ml] MEDS 12/19/16 17:50 Discontinued 4 mg IV ONCE STA Potassium Chloride [Potassium Chloride Premix Run] 10 MEDS 12/19/16 18:55 Discontinued meq Premix 100 ml Water 1 bag IV ONCE Potassium Chloride [Potassium Chloride Premix Run] 100 MEDS 12/19/16 19:05 Discontinued ml IV .STK-MED Potassium Chloride in 0.9%NaCl [Sodium Chloride 0.9%- MEDS 12/19/16 19:30 Active KCl 20 Meq] 1,000 ml IV 75 mls/hr Sodium Chloride 0.9% [Sodium Chloride] 1,000 ml MEDS 12/19/16 19:06 Discontinued IV BOLUS Venlafaxine HCl [Effexor Xr] MEDS 12/19/16 21:00 Discontinued 150 mg PO BID RESUSCITATION STATUS Routine OTHERS 12/19/16 19:[address] CERVICAL SPINE W/O CONTRAST Stat RADS 12/19/16 18:[address] CHEST W/O CONTRAST Stat RADS 12/19/16 17:[address] HEAD W/O CONTRAST Stat RADS 12/19/16 17:59 Completed Medications Generic Name Dose Route Start Last Admin Trade Name Michele PRN Reason Stop Dose Admin Acetaminophen 650 mg 12/19/16 19:19 Tylenol PO Q4H PRN Mild Pain Albuterol/Ipratropium 1 vial 12/20/16 00:00 12/20/16 05:05 Duoneb NEB 1 vial RTQ6H ANGELES Administration Alprazolam 1 mg 12/20/16 09:00 12/20/16 08:41 Xanax PO 1 mg QID ANGELES Administration Potassium Chloride/Sodium Chloride 1,000 mls @ 75 mls/hr 12/19/16 19:30 12/19 20:21 Sodium Chloride 0.9%-Kcl 20 Meq IV 75 mls/hr .[id number] ANGELES Administration Ceftriaxone Sodium 1 gm/ 50 mls @ 75 mls/hr 12/20/16 21:00 Sodium Chloride IV BEDTIME ANGELES Methylprednisolone Sodium Succinate 40 mg 12/20/16 13:00 Solu-Medrol 40 Mg IVP Q8HR ANGELES Morphine Sulfate 2 mg 12/19/16 21:00 12/20/16 05:12 Morphine 2 Mg/Ml Syringe IVP 2 mg Q8HR ANGELES Administration Venlafaxine HCl 150 mg 12/20/16 09:00 12/20/16 08:42 Effexor Xr PO 150 mg Q12HR ANGELES Administration Discontinued Medications Generic Name Dose Route Start Last Admin Trade Name Michele PRN Reason Stop Dose Admin Hydromorphone HCl 0.5 mg 12/19/16 17:50 12/19/16 17:58 Dilaudid 1 Mg/Ml Syringe IVP 12/19/16 17:51 0.5 mg ONCE STA Administration Hydromorphone HCl 1 mg 12/19/16 19:40 12/19/16 19:48 Dilaudid 1 Mg/Ml Syringe IVP 12/19/16 19:41 1 mg ONCE STA Administration Potassium Chloride 10 meq/ 100 mls @ 100 mls/hr 12/19/16 18:55 12/19/16 19:15 Sterile Water IV 12/19/16 19:54 100 mls/hr ONCE STA Administration Sodium Chloride 1,000 mls @ 250 mls/hr 12/19/16 19:06 12/19/16 19:15 Sodium Chloride IV 12/19/16 23:05 250 mls/hr BOLUS STA Administration Ceftriaxone Sodium 1 gm/ 50 mls @ 75 mls/hr 12/19/16 19:30 12/19/16 20:25 Sodium Chloride IV Not Given DAILY ANGELES Methylprednisolone Sodium Succinate 40 mg 12/19/16 19:30 12/20/16 05:12 Solu-Medrol 40 Mg IVP 40 mg Q8H ANGELES Administration Non-Formulary Medication 1 mg 12/19/16 21:00 12/19/16 20:25 Alprazolam [Xanax] PO Not Given QID ANGELES Non-Formulary Medication 150 mg 12/19/16 21:00 12/19/16 22:52 Venlafaxine Hcl [Effexor Xr] PO 150 mg BID ANGELES Administration Ondansetron HCl 4 mg 12/19/16 17:50 12/19/16 17:58 Zofran 4 Mg/2 Ml IV 12/19/16 17:51 4 mg ONCE STA Administration Ondansetron HCl 4 mg 12/19/16 19:46 12/19/16 19:55 Zofran 4 Mg/2 Ml IVP 12/19/16 19:47 4 mg ONCE STA Administration Vital Signs: Temp Pulse Resp BP Pulse Ox 12/19/16 17:39 97.0 F L 71 24 146/106 H 97 Departure - Departure Time of Disposition: 19:00 Disposition: ADMITTED INPATIENT Discharge Problem: Headache Headache Qualifiers: Headache type: unspecified Headache chronicity pattern: acute headache Intractability: not intractable Qualified Code(s): R51 - Headache Condition: Good Pt referred to PMD for follow-up: Yes Allergies/Adverse Reactions: Allergies Latex, Natural Rubber Adverse Reaction (Verified 12/19/16 17:47) Home Medications: Ambulatory Orders Venlafaxine HCl [Effexor Xr] 150 mg PO BID 12/01/12 Diphenhydramine HCl [Benadryl] 25 mg PO PRN 09/10/13 Guaifenesin [Mucinex] 600 mg PO BID 12/19/16
[2016-12-19 18:19] LABS: BASOPHILS % (AUTO) 0.1 % (0.0-3.0); EOSINOPHILS % (AUTO) 0.1 % (0.0-7.0); HEMATOCRIT 37.2 % (37.0-47.0); HEMOGLOBIN 13.4 g/dl (12.0-16.0); IMMATURE GRANULOCYTE % (AUTO) 1.3 % (0.0-5.0); LYMPHOCYTES # (AUTO) 2.4 K/uL (0.60-3.4); LYMPHOCYTES % (AUTO) 17.5 (10.0-50.0); MEAN CORPUSCULAR HEMOGLOBIN 31.8 pg (27.0-31.0); MEAN CORPUSCULAR VOLUME 88.2 fl (81.0-99.0); MONOCYTES # (AUTO) 0.8 K/uL (0.4-2.0); MONOCYTES % (AUTO) 6.2 (0-10); NEUTROPHILS % (AUTO) 74.8; PLATELET COUNT 304 10^3/uL (140-440); RED BLOOD COUNT 4.22 10^6/ul (4.20-5.40); WHITE BLOOD COUNT 13.42 K/ul (4.6-10.2)
--- NOTE | 2016-12-19 18:30 | CT ---
EXAM: CT head without contrast 12/19/2016. Sagittal and coronal reformatted images obtained HISTORY: Sudden onset headache. COMPARISON: 12/14/2016 FINDINGS: There is no evidence of intracranial hemorrhage. The midline is maintained. There is no h ydrocephalus. No cerebellar tonsillar ectopia. Evaluation of the calvarium shows no fracture. Th e mastoid air cells are normally pneumatized. IMPRESSION: No acute intracranial abnormality.
--- NOTE | 2016-12-19 18:37 | CT ---
EXAM: CT cervical spine without contrast HISTORY: Fall TECHNIQUE: Multi-slice transaxial helical with coronal and sagittal reformatted views. COMPARISON: None FINDINGS: No evidence of displaced cervical spine fracture is seen. The visualized vertebral body heights and i ntervertebral disc spaces appear preserved. There is mild uncovertebral hypertrophy spanning C3 -C6. No evidence of listhesis is seen. The articular facets appear aligned. No critical spinal canal stenosis is seen. There is mild bilateral neural foraminal narrowing at C3- C4 and C4-C5. Otherwise the neural foramina appear patent. Upper lung zones appear clear. Visualized mastoid air cells are well-aerated. IMPRESSION: 1. No acute fracture or lithesis. 2. Mild uncovertebral hypertrophy spanning C3-C6. 3. Mild bilateral neural foraminal narrowing at C3-C4 and C4-C5.
[2016-12-19 18:48] LABS: ALBUMIN 3.2 g/dL (3.4-5.0); ALBUMIN/GLOBULIN RATIO 0.8; ANION GAP 17.3; BILIRUBIN,TOTAL 0.48 mg/dL (0.00-1.20); BUN/CREATININE RATIO 10.84; CALCIUM 9.5 mg/dL (8.2-10.2); CREATININE 0.83 mg/dL (0.60-1.30); TOTAL PROTEIN 7.2 g/dL (6.4-8.2); TROPONIN I 0.019 ng/ml (0.0000-0.4000)
[2016-12-19 18:54] LABS: POTASSIUM 2.3 mmol/L (3.5-5.10)
[2016-12-19] MEDS ORDERED: POTASSIUM CHLORIDE PREMIX RUN 10 MEQ in PREMIX 100 ML WATER 1 BAG IV STA (18:55)
[2016-12-19] MEDS ORDERED: POTASSIUM CHLORIDE PREMIX RUN 100 ML IV ONE (19:05)
[2016-12-19] MEDS ORDERED: SODIUM CHLORIDE 1,000 ML IV STA (19:06)
--- NOTE | 2016-12-19 19:06 | CT ---
EXAM: CT chest without intravenous contrast 12/19/2016. Sagittal and coronal reformatted images obt ained HISTORY: Cough COMPARISON: 12/14/2016 FINDINGS: The heart size appears within normal limits. There is no pericardial effusion. Bilateral interstitial and reticulonodular infiltrates. This likely represents a bilateral interstitial pneumon ia. There is no focal pulmonary consolidation. No pleural effusion or pneumothorax. Limited views of the upper abdomen show no acute abnormality. IMPRESSION: Findings suggestive of bilateral interstitial pneumonia.
[2016-12-19 19:18] LABS: FLU INTERNAL QC INTERNAL QC VALID; RAPID FLU A NEGATIVE (NEGATIVE); RAPID FLU B NEGATIVE (NEGATIVE)
[2016-12-19] MEDS ORDERED: ROCEPHIN 1 GM in SODIUM CHLORIDE 50 ML IV SCH (19:30)
[2016-12-19] MEDS ORDERED: ZOFRAN 4 MG/2 ML IVP STA (19:46)
[2016-12-19] MEDS ORDERED: ROCEPHIN ONE (20:03)
[2016-12-19] MEDS ORDERED: XANAX ONE (20:04)
[2016-12-19] MEDS ORDERED: SOLU-MEDROL 40 MG ONE (20:04)
[2016-12-19 20:13] VITALS: BMI 27.3
[2016-12-19] MEDS: SODIUM CHLORIDE 0.9%-KCL 20 MEQ 1,000 ML IV SCH (20:21)
[2016-12-19] MEDS: SOLU-MEDROL 40 MG IVP SCH (20:24)
[2016-12-19] MEDS ORDERED: SODIUM CHLORIDE 50 ML IV ONE (20:24)
[2016-12-19] MEDS ORDERED: NON-FORMULARY MEDICATION (Alprazolam [Xanax] 1 MG) PO SCH ×22 (21:00)
[2016-12-19] MEDS ORDERED: NON-FORMULARY MEDICATION (Venlafaxine Hcl [Effexor Xr] 150 MG) PO SCH ×22 (21:00)
[2016-12-19 22:54] LABS: BILIRUBIN,URINE Negative (NEGATIVE); KETONES,URINE 2+ (NEGATIVE); LEUKOCYTE ESTERASE ,URINE Negative (NEGATIVE); NITRITE,URINE Negative (NEGATIVE); PH,URINE 7.5 (5-9); PROTEIN,URINE Negative (NEGATIVE); URINE, BLOOD Negative (NEGATIVE)
[2016-12-19] MEDS: MORPHINE 2 MG/ML SYRINGE IVP SCH (22:54)
[2016-12-19 23:01] LABS: ADD URINE MICROSCOPIC NO
[2016-12-19] MEDS ORDERED: DUONEB NEB ONE (23:48)
[2016-12-19] MEDS: DUONEB NEB SCH (23:48)
[2016-12-20 02:06] LABS: BASOPHILS % (AUTO) 0.1 % (0.0-3.0); HEMATOCRIT 35.2 % (37.0-47.0); HEMOGLOBIN 12.3 g/dl (12.0-16.0); IMMATURE GRANULOCYTE % (AUTO) 0.9 % (0.0-5.0); LYMPHOCYTES % (AUTO) 6.7 (10.0-50.0); MEAN CORPUSCULAR HEMOGLOBIN 31.5 pg (27.0-31.0); MEAN CORPUSCULAR HGB CONC 34.9 (31.8-35.4); MEAN CORPUSCULAR VOLUME 90.3 fl (81.0-99.0); MONOCYTES # (AUTO) 0.3 K/uL (0.4-2.0); MONOCYTES % (AUTO) 2.2 (0-10); NEUTROPHILS # (AUTO) 12.7 K/ul (2.0-6.9); NEUTROPHILS % (AUTO) 90.1; PLATELET COUNT 230 10^3/uL (140-440); WHITE BLOOD COUNT 14.08 K/ul (4.6-10.2)
[2016-12-20 02:25] LABS: ALBUMIN 2.8 g/dL (3.4-5.0); ALBUMIN/GLOBULIN RATIO 0.76; ANION GAP 12.5; BILIRUBIN,TOTAL 0.29 mg/dL (0.00-1.20); BUN/CREATININE RATIO 12.67; CALCIUM 8.5 mg/dL (8.2-10.2); CREATININE 0.71 mg/dL (0.60-1.30); POTASSIUM 3.5 mmol/L (3.5-5.10); TOTAL PROTEIN 6.5 g/dL (6.4-8.2)
[2016-12-20 02:33] LABS: CREATINE KINASE 33 U/L
[2016-12-20] MEDS ORDERED: SOLU-MEDROL 40 MG ONE (04:57)
[2016-12-20] MEDS: DUONEB NEB SCH ×4 (05:05→23:49)
[2016-12-20] MEDS: MORPHINE 2 MG/ML SYRINGE IVP SCH ×3 (05:12→21:35)
[2016-12-20] MEDS: SOLU-MEDROL 40 MG IVP SCH ×3 (05:12→20:52)
[2016-12-20] MEDS: XANAX PO SCH ×4 (08:41→20:52)
[2016-12-20] MEDS: EFFEXOR XR PO SCH ×2 (08:42→20:51)
[2016-12-20 10:24] LABS: CREATINE KINASE 33 U/L
[2016-12-20] MEDS: SODIUM CHLORIDE 0.9%-KCL 20 MEQ 1,000 ML IV SCH (10:40)
[2016-12-20] MEDS: TYLENOL PO PRN ×2 (10:42→20:51)
[2016-12-20] MEDS: ROCEPHIN 1 GM in SODIUM CHLORIDE 50 ML IV SCH (20:51)
[2016-12-21] MEDS: SODIUM CHLORIDE 0.9%-KCL 20 MEQ 1,000 ML IV SCH ×2 (01:06→14:41)
[2016-12-21] MEDS: DUONEB NEB SCH ×4 (05:00→22:40)
[2016-12-21] MEDS: TYLENOL PO PRN ×2 (05:26→19:44)
[2016-12-21] MEDS: MORPHINE 2 MG/ML SYRINGE IVP SCH ×3 (05:27→21:21)
[2016-12-21] MEDS: SOLU-MEDROL 40 MG IVP SCH ×3 (05:27→21:20)
[2016-12-21 05:32] LABS: BASOPHILS % (AUTO) 0.2 % (0.0-3.0); HEMATOCRIT 34.7 % (37.0-47.0); HEMOGLOBIN 11.8 g/dl (12.0-16.0); IMMATURE GRANULOCYTE % (AUTO) 3.5 % (0.0-5.0); LYMPHOCYTES # (AUTO) 1.3 K/uL (0.60-3.4); LYMPHOCYTES % (AUTO) 8.5 (10.0-50.0); MEAN CORPUSCULAR HEMOGLOBIN 31.4 pg (27.0-31.0); MEAN CORPUSCULAR VOLUME 92.3 fl (81.0-99.0); MONOCYTES # (AUTO) 0.8 K/uL (0.4-2.0); NEUTROPHILS # (AUTO) 12.7 K/ul (2.0-6.9); NEUTROPHILS % (AUTO) 82.8; PLATELET COUNT 309 10^3/uL (140-440); RED BLOOD COUNT 3.76 10^6/ul (4.20-5.40)
[2016-12-21 05:56] LABS: ALBUMIN/GLOBULIN RATIO 0.81; ANION GAP 13.3; BILIRUBIN,TOTAL 0.21 mg/dL (0.00-1.20); BUN/CREATININE RATIO 12.16; CALCIUM 8.8 mg/dL (8.2-10.2); CREATININE 0.74 mg/dL (0.60-1.30); POTASSIUM 3.3 mmol/L (3.5-5.10); TOTAL PROTEIN 6.7 g/dL (6.4-8.2)
--- NOTE | 2016-12-21 07:51 | HP ---
DATE OF SERVICE: 12/19/16 CHIEF COMPLAINT: Severe nausea and vomiting HISTORY OF PRESENT ILLNESS: The patient is a 46 year old female who was recently discharged from the hospital and went home and was doing fine came back to the emergency room with severe headache and neck pain. Started around the noon time. Started with the vomiting and not able to keep anything down, whatever she ate she vomited, non bilious or blood vomiting. Was recently here with hypokalemia so she got worried and came to the emergency room and was seen by Dr. Vernon in the emergency room. Blood pressure was 146/106 and labs showed the potassium of 2.3. CT head is negative. Cervical spine is negative. CT chest showed the bilateral pneumonia. At that time the patient is admitted for IV dehydration, treating the pneumonia and replacing the potassium. REVIEW OF SYSTEMS: CONSTITUTIONAL: No fever, no chills. HEENT: Normal. Headaches. Neck pain. ENDOCRINE: No weight gain; no weight loss. CVS: No chest pain. No PND, no orthopnea. No shortness of breath. No PND, no orthopnea. RESPIRATORY: Cough, Congestion and getting yellow/green phlegm. No hemoptysis. GI: No nausea, Vomiting. Abdominal pain. No melena. : No hematuria. No polyuria. MUSCULOSKELETAL: No joint swelling. Muscle pain. PSYCHIATRIC: Not anxious. No depression. No suicidal thoughts. No homicidal thoughts. SKIN: Intact, no open lesions. PAST MEDICAL HISTORY: Coronary artery disease Hypertension Sleep apnea Diarrhea Gastroenteritis Osteoarthritis Depression Anxiety PAST SURGICAL HISTORY: Knee surgery Ablation Tubal ligation PERSONAL HISTORY: The patient does not smoke or drink. Family history is significant for diabetes and heart problems. MEDICATIONS: Effexor Benadryl Vistaril Xanax Cyclobenzaprine Losartan/hydrochlorothiazide Mucinex ALLERGIES: Latex Natural rubber PHYSICAL EXAMINATION: V/S: Blood pressure 146/106, respiratory rate 24, heart rate 71, temperature 97.0, saturation 97 on 2 liters. GENERAL: Sick looking lady laying in the bed and complains about the headache. HEENT: Atraumatic, normocephalic. No scleral icterus. Pallor positive. Mucosa dry. NECK: Supple. No JVD, no bruit. No lymphadenopathy. No thyromegaly. HEART: S1, S2 normal. No murmur. No cyanosis or clubbing. No ascites. LUNGS: Decreased and basilar crackles. Expiratory wheeze is present. No rales or rhonchi. ABDOMEN: Soft, Discomfort all over. Bowel sounds are active. No CVA tenderness. No rigidity or guarding. EXTREMITIES: No cyanosis, clubbing or pedal edema. MUSCULOSKELETAL: Normal joints, no swelling. NEUROLOGIC: The patient is SKIN: Intact; no open lesions. LYMPHATIC: No lymph nodes palpable. LABS: Sodium 138, potassium 2.3, chloride 97, bicarb 26, BUN 9, creatinine 0.83, glucose 108, WBC 13.42, hgb 13.4, hct 37.2, plt count 304. Serology negative ASSESSMENT: 1. Severe hypokalemia 2. Bilateral pneumonia 3. Acute gastroenteritis 4. Diarrhea 5. Dehydration 6. Depression PLAN: 1. Admit patient to the regular floor 2. CBC and CMP today and daily 3. Cardiac enzymes and Troponin 4. Rocephin 1 gram daily 5. DUO NEBS 6. Solu-Medrol 7. Replace the potassium 8. Zofran for nausea and vomiting 9. Morphine for pain. TIME SPENT: MORE THAN 70 minutes MTDD
--- NOTE | 2016-12-21 07:55 | PN ---
DATE OF SERVICE: 12/20/16 SUBJECTIVE: The patient was admitted yesterday from the emergency room for the severe hypokalemia. The patient looks a lot better today and says that she is feeling good. No vomiting or diarrhea today and headache is a lot improved. REVIEW OF SYSTEMS: CONSTITUTIONAL: No fever, no chills. HEENT: Normal. ENDOCRINE: No weight gain, no weight loss. CVS: No angina symptoms. No CHF symptoms. No palpitations. No atypical chest pain for CAD. No shortness of breath. No PND, no orthopnea. RESPIRATORY: No cough, no hemoptysis. GI: No nausea, no vomiting. No abdominal pain. : No hematuria. No polyuria. MUSCULOSKELETAL:. No joint swelling. PSYCHIATRIC: Not anxious. No depression. No suicidal thoughts. No homicidal thoughts. SKIN: Intact. No rash. PHYSICAL EXAMINATION: V/S: Blood pressure 154/62, respiratory rate 16, heart rate 68, temperature 97.9 and saturation 99 on 2 liters. HEENT: Normocephalic, atraumatic. Mucosa dry. NECK: Supple. No JVD, no carotid bruit. No lymphadenopathy. LUNGS: Decreased and basilar crackles. No rales or rhonchi. HEART: S1, S2 normal. No S3. No murmur, gallop or regurgitation. ABDOMEN: Soft, nontender. Bowel sounds active. No rigidity. No rebound or guarding. No CVA tenderness. EXTREMITIES: No clubbing, cyanosis or pedal edema. MUSCULOSKELETAL: No joint swelling. NEUROLOGIC: Awake, alert, oriented times three. No focal deficit. LYMPHATIC: No lymph nodes palpable. SKIN: Intact. LABS: WBC 14.08, hgb 12.3, hct 35.2, plt count 230, sodium 138, potassium 3.5, chloride 98, bicarb 21, BUN 9, creatinine 0.71, glucose 119 ASSESSMENT: 1. Status post severe hypokalemia 2. Dehydration 3. Gastroenteritis is improved 4. Bilateral pneumonia 5. Depression PLAN: 1. Continue the Rocephin 2. IV fluids 3. Zofran 4. Solu-Medrol 5. Breathing treatments. TIME SPENT: More than 35 minutes MTDD
[2016-12-21] MEDS: EFFEXOR XR PO SCH ×2 (08:35→20:53)
[2016-12-21] MEDS: XANAX PO SCH ×4 (08:35→20:54)
[2016-12-21] MEDS ORDERED: K-DUR PO STA (08:36)
[2016-12-21] MEDS: MAG-OX PO SCH ×2 (09:45→20:53)
[2016-12-21] MEDS: COZAAR PO SCH (09:45)
--- NOTE | 2016-12-21 09:45 | DI ---
EXAM: Chest two view, frontal and lateral views. HISTORY: Wheezing. Frequent cough. COMPARISON: 12/19/2016. FINDINGS: The heart size is normal. There is no pulmonary vascular congestion. Bibasilar reticulon odular opacities are greater on the left. Otherwise, the lungs are clear. No pleural effusion or pn eumothorax is seen. No acute osseous abnormality identified. IMPRESSION: Bibasilar reticulonodular opacities, suggesting pneumonitis.
[2016-12-21] MEDS: ROCEPHIN 1 GM in SODIUM CHLORIDE 50 ML IV SCH (20:53)
[2016-12-22] MEDS: DUONEB NEB SCH (04:50)
[2016-12-22 04:58] LABS: HEMATOCRIT 34.7 % (37.0-47.0); HEMOGLOBIN 11.6 g/dl (12.0-16.0); MEAN CORPUSCULAR HEMOGLOBIN 31.4 pg (27.0-31.0); MEAN CORPUSCULAR HGB CONC 33.4 (31.8-35.4); MEAN CORPUSCULAR VOLUME 93.8 fl (81.0-99.0); PLATELET COUNT 314 10^3/uL (140-440); WHITE BLOOD COUNT 17.54 K/ul (4.6-10.2)
[2016-12-22 05:10] LABS: ANISOCYTOSIS NOT PRESENT (NOT PRESENT)
[2016-12-22 05:22] LABS: ALBUMIN 2.8 g/dL (3.4-5.0); ALBUMIN/GLOBULIN RATIO 0.78; ANION GAP 12.9; BILIRUBIN,TOTAL 0.18 mg/dL (0.00-1.20); BUN/CREATININE RATIO 14.49; CALCIUM 8.6 mg/dL (8.2-10.2); CREATININE 0.69 mg/dL (0.60-1.30); POTASSIUM 4.9 mmol/L (3.5-5.10); TOTAL PROTEIN 6.4 g/dL (6.4-8.2)
[2016-12-22] MEDS: SOLU-MEDROL 40 MG IVP SCH (05:57)
[2016-12-22] MEDS: SODIUM CHLORIDE 0.9%-KCL 20 MEQ 1,000 ML IV SCH (05:57)
[2016-12-22] MEDS: MORPHINE 2 MG/ML SYRINGE IVP SCH (05:58)
[2016-12-22] MEDS ORDERED: CITRATE OF MAGNESIA PO STA (08:44)
[2016-12-22] MEDS: EFFEXOR XR PO SCH (08:56)
[2016-12-22] MEDS: XANAX PO SCH (08:56)
[2016-12-22] MEDS: COZAAR PO SCH (08:57)
[2016-12-22] MEDS: MAG-OX PO SCH (08:57)
[2016-12-22 09:59] VITALS: BP 130/76; TEMP 98.1
--- NOTE | 2016-12-22 10:45 | PN ---
DATE OF SERVICE: 12/21/16 SUBJECTIVE: Admitted with severe hyperkalemia, bilateral pneumonia. Potassium has been better. She is still having cough, congestion but no shortness of breath. No fever, no chills. No PND, no orthopnea. REVIEW OF SYSTEMS: CONSTITUTIONAL: No fever, no chills. HEENT: Normal. ENDOCRINE: No weight gain, no weight loss. CVS: No angina symptoms. No CHF symptoms. No palpitations. No atypical chest pain for CAD. No shortness of breath. No PND, no orthopnea. RESPIRATORY: Cough; no hemoptysis. GI: No nausea, no vomiting. No abdominal pain. : No hematuria. No polyuria. MUSCULOSKELETAL:. No joint swelling. PSYCHIATRIC: Not anxious. No depression. No suicidal thoughts. No homicidal thoughts. SKIN: Intact. No rash. PHYSICAL EXAMINATION: V/S: BP 120/76, respiratory rate 20, heart rate 77, temperature 97.6, saturation 95. HEENT: Normocephalic, atraumatic. Mucosa dry, pallor positive. No icterus. NECK: Supple. No JVD, no carotid bruit. No lymphadenopathy. LUNGS: Decreased basilar crackles. No rales or rhonchi. HEART: S1, S2 normal. No S3. No murmur, gallop or regurgitation. ABDOMEN: Soft, nontender. Bowel sounds active. No rigidity. No rebound or guarding. No CVA tenderness. EXTREMITIES: No clubbing, cyanosis or pedal edema. MUSCULOSKELETAL: No joint swelling. NEUROLOGIC: Awake, alert, oriented times three. No focal deficit. LYMPHATIC: No lymph nodes palpable. SKIN: Intact. LABS: White count 15.30, hemoglobin 11.6, hematocrit 34.7, platelet count 309. Sodium 140, potassium 3.3, chloride 103, bicarb 27, BUN 9, creatinine 0.76. ASSESSMENT: 1. BILATERAL PNEUMONIA 2. HYPERGLYCEMIA 3. STATUS POST SEVERE HYPOKALEMIA 4. HISTORY OF MIGRAINE HEADACHE PLAN: 1. Will replace potassium 2. Continue Rocephin 1 gm daily 3. Duonebs and steroids 4. Out of bed to chair 5. Activity as tolerated 6. No DVT prophylaxis as the patient is active and mobilizing TIME SPENT: More than 35 minutes today MTDD
--- NOTE | 2017-01-24 07:59 | DS ---
DATE OF SERVICE: 12/22/16 FINAL DIAGNOSIS: 1. Bilateral community acquired pneumonia 2. Status post severe hypokalemia, 2.3 3. Migraine headache 4. COPD 5. Nicotine use 6. Sleep apnea 7. Osteoarthritis 8. Depression 9. Anxiety 10.Chronic back pain. 11. Knee surgery 12. Tubal ligation 13. Uterine ablation 14. History of previous smoker. 15. Hypomagnesium DISCHARGE INSTRUCTIONS: Discharge the patient home. Followup in the [facility] within 5-7 days. MEDICATIONS AT DISCHARGE: Effexor XR Xanax Cyclobenzaprine Mucinex Keflex Atrovent Magnesium oxide Prednisone Cozaar Zofran NEW PRESCRIPTIONS: Prednisone 10mg PO twice a day for 7 days Zofran 4mg twice a day as needed Atrovent two puffs three times a day Magnesium 400mg twice a day for 7 days Cozaar 50mg once a day DIET INSTRUCTIONS: Cardiac and healthy, increase a lot hydration. ACTIVITY: As much as tolerated SMOKING: Former smoker DISEASE SPECIFIC EDUCATION: Hypokalemia Cardiac problems Gastroenteritis Pneumonia antibiotics and diarrhea been discussed. HOSPITAL COURSE: JessicaLexie 46 year old female came to the emergency room complaining of severe headache, vomiting and not able to keep anything. Saw Dr. Vernon in the emergency room and the potassium was 2.3. At that time the patient was admitted to the hospital and CT scan of the chest showed the bilateral pneumonia. The patient was started on the IV fluids, Rocephin, breathing treatments, Solu-Medrol and gradually the patient started feeling better. Potassium went up to 2.3, 3.5, 3.3 and 4.9. Magnesium was checked as patient was having persistent constant hypokalemia. Magnesium level was 1.3 and at that time Magnesium was also started correcting with Zofran and Protonix and the patient started feeling better with no nausea or vomiting. Did not have any complications during the hospital stay. WBC 13.4 to 14 and 17 most likely from the steroid use. The patient has been up and about walking and did not have any complications. Still was having some cough but able to bring the phlegm. At that time the patient being sent home. Clearly explained about continuing the medication and finishing the medications, she verbalized understanding. TIME SPENT: MORE THAN 45-50 MINUTES MTDD
== END 2016-12-22 11:20 | disposition home or self-care (01) | DRG 195 ==
LOC: ED 17:38 → MEDSURG B 19:26
PROVIDERS: ADMIT Emergency Medicine; ATTEND Emergency Medicine
DX: J18.9 Pneumonia, unspecified organism (principal); K52.9 Noninfective gastroenteritis and colitis, unspecified; G43.909 Migraine, unspecified, not intractable, without status migrainosus; I10 Essential (primary) hypertension; M54.2 Cervicalgia; E87.6 Hypokalemia; J44.9 Chronic obstructive pulmonary disease, unspecified; G47.30 Sleep apnea, unspecified; M19.90 Unspecified osteoarthritis, unspecified site; F41.8 Other specified anxiety disorders; E83.42 Hypomagnesemia; F17.200 Nicotine dependence, unspecified, uncomplicated; R11.10 Vomiting, unspecified; R53.1 Weakness; R61 Generalized hyperhidrosis; R73.9 Hyperglycemia, unspecified
CPT/HCPCS: 36415; 80053; 81001; 82550; 83605; 83735; 84145; 84484; 85007; 85025; 85730; 87040; 87081; 87804; 93005; 93010; 94640; 96361; 96365; 96375; 96376; 99284

== ENCOUNTER 2016-12-29 12:42 | Outpatient (CLI) ==
[2016-12-29 13:23] LABS: ALBUMIN 3.5 g/dL (3.4-5.0); ALBUMIN/GLOBULIN RATIO 0.92; ANION GAP 16.2; BILIRUBIN,TOTAL 0.51 mg/dL (0.00-1.20); CALCIUM 9.2 mg/dL (8.2-10.2); CREATININE 0.75 mg/dL (0.60-1.30); POTASSIUM 4.2 mmol/L (3.5-5.10); TOTAL PROTEIN 7.3 g/dL (6.4-8.2)
== END 2016-12-29 12:43 | disposition home or self-care (01) ==
LOC: LAB 12:42
PROVIDERS: ATTEND Emergency Medicine
DX: E87.6 Hypokalemia (principal)
CPT/HCPCS: 36415; 80053

== ENCOUNTER 2017-02-01 03:03 | Emergency (ER) ==
[2017-02-01 03:17] VITALS: BP 122/83; TEMP 97.3; BMI 27.8
[2017-02-01] MEDS ORDERED: SODIUM CHLORIDE 1,000 ML IV STA (03:35)
[2017-02-01] MEDS ORDERED: TORADOL IVP STA (03:36)
[2017-02-01] MEDS ORDERED: ZOFRAN 4 MG/2 ML IVP STA (03:36)
[2017-02-01 04:07] LABS: BASOPHILS # (AUTO) 0.1 K/uL (0-0.2); BASOPHILS % (AUTO) 0.5 % (0.0-3.0); EOSINOPHILS # (AUTO) 0.1 K/ul (0.0-0.7); EOSINOPHILS % (AUTO) 0.6 % (0.0-7.0); HEMATOCRIT 36.4 % (37.0-47.0); HEMOGLOBIN 12.5 g/dl (12.0-16.0); IMMATURE GRANULOCYTE % (AUTO) 0.4 % (0.0-5.0); LYMPHOCYTES # (AUTO) 2.8 K/uL (0.60-3.4); LYMPHOCYTES % (AUTO) 21.7 (10.0-50.0); MEAN CORPUSCULAR HGB CONC 34.3 (31.8-35.4); MEAN CORPUSCULAR VOLUME 93.1 fl (81.0-99.0); MONOCYTES # (AUTO) 0.6 K/uL (0.4-2.0); MONOCYTES % (AUTO) 4.7 (0-10); NEUTROPHILS # (AUTO) 9.3 K/ul (2.0-6.9); NEUTROPHILS % (AUTO) 72.1; PLATELET COUNT 253 10^3/uL (140-440); RED BLOOD COUNT 3.91 10^6/ul (4.20-5.40); WHITE BLOOD COUNT 12.96 K/ul (4.6-10.2)
[2017-02-01 04:10] LABS: BILIRUBIN,URINE Negative (NEGATIVE); KETONES,URINE Negative (NEGATIVE); LEUKOCYTE ESTERASE ,URINE 1+ (NEGATIVE); NITRITE,URINE Negative (NEGATIVE); PROTEIN,URINE Negative (NEGATIVE); URINE, BLOOD Negative (NEGATIVE)
[2017-02-01 04:14] LABS: ADD URINE MICROSCOPIC YES
[2017-02-01 04:16] LABS: BACTERIA,URINE TRACE (NOT PRESENT)
[2017-02-01 04:23] LABS: FLU INTERNAL QC INTERNAL QC VALID; RAPID FLU A NEGATIVE (NEGATIVE); RAPID FLU B NEGATIVE (NEGATIVE)
[2017-02-01 04:33] LABS: ALANINE AMINOTRANSFERASE 15 U/L (12-78); ALBUMIN 3.6 g/dL (3.4-5.0); ALBUMIN/GLOBULIN RATIO 1.09; ALKALINE PHOSPHATASE 95 U/L (42-98); ANION GAP 13.1; ASPARTATE AMINO TRANSFERASE 17 U/L (15-37); BILIRUBIN,TOTAL 0.24 mg/dL (0.00-1.20); BLOOD UREA NITROGEN 8 mg/dL (7-18); BUN/CREATININE RATIO 9.75; CALCIUM 9.5 mg/dL (8.2-10.2); CARBON DIOXIDE 25 mmol/L (21-32); CHLORIDE 104 mmol/L (98-107); CREATINE KINASE 32 U/L; CREATININE 0.82 mg/dL (0.60-1.30); GLUCOSE 114 mg/dL (70-110); POTASSIUM 3.1 mmol/L (3.5-5.10); SODIUM 139 mmol/L (136-145); TOTAL PROTEIN 6.9 g/dL (6.4-8.2)
--- NOTE | 2017-02-01 04:36 | CT ---
EXAM: CT chest without intravenous contrast 02/01/2017. Sagittal and coronal reformatted images obt ained HISTORY: Cough COMPARISON: 12/19/2016 FINDINGS: The heart size appears within normal limits. There is no pericardial effusion. There is no pulmonary consolidation, effusion or pneumothorax. Lungs appear normally aerated. No acute osseous abnormality. Limited views of the upper abdomen show no acute abnormality. IMPRESSION: No acute process.
--- NOTE | 2017-02-01 04:41 | CT ---
EXAM: CT head without contrast 02/01/2017. Sagittal and coronal reformatted images obtained HISTORY: Headache COMPARISON: 12/19/2016 FINDINGS: There is no evidence of intracranial hemorrhage. The midline is maintained. There is no h ydrocephalus. No cerebellar tonsillar ectopia. Evaluation of the calvarium shows no fracture. Th e mastoid air cells are normally pneumatized. IMPRESSION: No acute intracranial abnormality.
[2017-02-01] MEDS ORDERED: K-DUR PO STA (05:12)
--- NOTE | 2017-02-01 05:15 | ED.PDOC ---
General ED Provider: Dr. GUERA THAYER-ER Chief Complaint: Nausea/Vomiting Stated Complaint: rose marie got a migraine--im vomiting and my head hurts Time Seen by Physician: 03:10 Mode of Arrival: Walk-In Information Source: Patient, Family Exam Limitations: No limitations Primary Care Provider[facility] and Triage Documentation Reviewed and Agree: Yes Neurological Complaint Exam - Headache Complaint/Exam Onset: Gradual Duration: several hours Symptoms Are: Still present Timing: Constant Worst Headache Ever: No Initial Severity: Mild Current Severity: Moderate Location: Diffuse Character: Reports: Dull, Throbbing, Pressure, Typical headache, Migraine Aggravating: Reports: Bright lights Alleviating: Reports: None Associated Signs and Symptoms: Reports: Nausea, Vomiting. Denies: Dizziness, Seizure, Sinus pressure, Fever, Neck pain, Neck stiffness, Decreased LOC, Visual changes Related History: Reports: Similar episode Related Surgical History: Reports: None SAH Risk Factors: Reports: None Meningitis Risk Factors: Reports: None SDH Risk Factors: Reports: None Temporal Arteritis Risk Factors: Reports: Female, Normal Head CT Within Last 12 Months: No Fundoscopic Exam: Present: Normal Findings Papilledema Present: No Temporal Artery Tenderness: Present: None Sinus Tenderness: Present: None TMJ Tenderness: Present: None Glascow Coma Scale (see protocol): 15 Meningeal Signs Positive: No Pain on Passive Flexion-Positive Kernig's: No ROM Limited In: No Limitiations Focal Weakness: Present: None Focal Sensory Loss: Present: None Gait: Normal Nystagmus Present: No Gag Reflex Present: Yes [id number]: Normal Findings Romberg Test Positive: No Babinski Sign: Negative Right, Negative Left Heel to Toe Normal: Yes Differential Diagnoses: Migraine Review of Systems - Review Of Systems Constitutional: Reports: No symptoms Eyes: Reports: No symptoms Ears, Nose, Mouth, Throat: Reports: No symptoms Respiratory: Reports: No symptoms Cardiac: Reports: No symptoms GI: Reports: Nausea, Vomiting : Reports: No symptoms Musculoskeletal: Reports: No symptoms Skin: Reports: No symptoms Neurological: Reports: Headache Endocrine: Reports: No symptoms Hematologic/Lymphatic: Reports: No symptoms All Other Systems: Reviewed and Negative Past Medical History - Past Medical History Previously Healthy: No Endocrine: Reports: None Cardiovascular: Reports: Hypertension Respiratory: Reports: None Hematological: Reports: None Gastrointestinal: Reports: GERD Genitourinary: Reports: None Neuro/Psych: Reports: Depression Musculoskeletal: Reports: None Cancer: Reports: None Last Menstrual Period: 09/2015 ablation - Surgical History General Surgical History: Reports: Orthopedic (09/24 knee) - Family History Family History: Reports: Hypertension, Diabetes - Social History Smoking Status: Current every day smoker, Light tobacco smoker Hx Substance Use: No Alcohol Screening: None - Immunizations Tetanus Shot up to Date: Yes Physical Exam - Physical Exam Appearance: Well-appearing, No pain distress, Well-nourished Pain Distress: Moderate Eyes: PENNY, EOMI, Conjunctiva clear ENT: Ears normal, Nose normal, Oropharynx normal Neck: Supple Respiratory: Airway patent Cardiovascular: RRR, Pulses normal, No rub, No murmur GI/: Soft, Nontender, No masses, Bowel sounds normal, No Organomegaly Musculoskeletal: Normal strength, ROM intact, No edema, No calf tenderness Skin: Warm, Dry, Normal color Neurological: Sensation intact, Motor intact, Reflexes intact, Cranial nerves intact, Alert, Oriented Psychiatric: Affect appropriate, Mood appropriate Interpretation - Radiology Interpretation Radiology Interpretation By: Radiologist Radiology Results: Negative Exam Interpreted: CT Scan Re-Evaluation - Re-Evaluation Time of Re-Evaluation: 05:16 Status: Improved (armendariz and nausea resolved) Vital Signs Stable: Yes Pain Level: 1 Appearance: NAD Lungs: Clear Skin: Warm and Dry Neuro: Alert and Oriented X3 CV: RRR Critical Care Note - Critical Care Note Total Time (mins): 0 Course - Course Hematology/Chemistry: 02/01/17 04:00 02/01/17 04:00 Orders, Labs, Meds: Lab Review 02/01/17 02/01/17 02/01/17 03:45 03:45 04:00 WBC 12.96 H RBC 3.91 L Hgb 12.5 Hct 36.4 L MCV 93.1 MCH 32.0 H MCHC 34.3 RDW Coeff of Michael 13.6 Plt Count 253 Immature Gran % (Auto) 0.4 Neut % (Auto) 72.1 Lymph % (Auto) 21.7 [place] % (Auto) 4.7 Eos % (Auto) 0.6 Baso % (Auto) 0.5 Immature Gran # (Auto) 0.1 Neut # 9.3 H Lymph # 2.8 [place] # 0.6 Eos # 0.1 Baso # 0.1 Sodium Potassium Chloride Carbon Dioxide Anion Gap BUN Creatinine Estimated GFR (MDRD) BUN/Creatinine Ratio Glucose Calcium Total Bilirubin AST ALT Alkaline Phosphatase Total Creatine Kinase Troponin I B-Natriuretic Peptide Total Protein Albumin Globulin Albumin/Globulin Ratio Urine Color Yellow Urine Clarity Clear Urine pH 6.0 Ur Specific [place] 1.020 Urine Protein Negative Urine Glucose (UA) Negative Urine Ketones Negative Urine Blood Negative Urine Nitrite Negative Urine Bilirubin Negative Urine Urobilinogen 0.2 Ur Leukocyte Esterase 1+ Urine Microscopic WBC 10-20 Ur Squamous Epith Cells 5-10 Urine Bacteria Trace Influenza A (Rapid) Negative Influenza B (Rapid) Negative 02/01/17 02/01/17 04:00 04:00 WBC RBC Hgb Hct MCV MCH MCHC RDW Coeff of Michael Plt Count Immature Gran % (Auto) Neut % (Auto) Lymph % (Auto) [place] % (Auto) Eos % (Auto) Baso % (Auto) Immature Gran # (Auto) Neut # Lymph # [place] # Eos # Baso # Sodium 139 Potassium 3.1 L Chloride 104 Carbon Dioxide 25 Anion Gap 13.1 BUN 8 Creatinine 0.82 Estimated GFR (MDRD) 75.00 BUN/Creatinine Ratio 9.75 Glucose 114 H Calcium 9.5 Total Bilirubin 0.24 AST 17 ALT 15 Alkaline Phosphatase 95 Total Creatine Kinase 32 Troponin I < 0.0100 B-Natriuretic Peptide 28 Total Protein 6.9 Albumin 3.6 Globulin 3.3 Albumin/Globulin Ratio 1.09 Urine Color Urine Clarity Urine pH Ur Specific [place] Urine Protein Urine Glucose (UA) Urine Ketones Urine Blood Urine Nitrite Urine Bilirubin Urine Urobilinogen Ur Leukocyte Esterase Urine Microscopic WBC Ur Squamous Epith Cells Urine Bacteria Influenza A (Rapid) Influenza B (Rapid) Orders Category Date Time Status EKG-(ED ONLY) Stat CARDIO 02/01/17 03:34 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] .ONCE EMERGENCY 02/01/17 03:38 Active IV [ED IV/MEDIPORT/POWERPORT] .ONCE EMERGENCY 02/01/17 03:34 Active B-TYPE NATRIURETIC PEPTIDE Stat LAB 02/01/17 04:00 Completed BLOOD CULTURE (ED ONLY) Stat LAB 02/01/17 04:00 Received CBC W/ AUTO DIFF Stat LAB 02/01/17 04:00 Completed COMPREHENSIVE METABOLIC PANEL Stat LAB 02/01/17 04:00 Completed CREATINE KINASE Stat LAB 02/01/17 04:00 Completed MOLECULAR GROUP A STREP Stat LAB 02/01/17 03:45 Results RAPID FLU A/B Stat LAB 02/01/17 03:45 Completed STREP SCREEN Stat LAB 02/01/17 03:45 Results TROPONIN I Stat LAB 02/01/17 04:00 Completed URINALYSIS C & S IF INDICATED Stat LAB 02/01/17 03:45 Completed URINE CULTURE Stat LAB 02/01/17 04:16 Received 0.9 % Sodium Chloride [Saline Flush] MEDS 02/01/17 03:34 Ordered 1 syr IVF PRN PRN Ketorolac Tromethamine [Toradol] MEDS 02/01/17 03:36 Discontinued 30 mg IVP ONCE STA Ondansetron HCl/Pf [Zofran 4 mg/2 ml] MEDS 02/01/17 03:36 Discontinued 4 mg IVP ONCE STA Potassium Chloride [K-Dur] MEDS 02/01/17 05:12 Stat 40 meq PO ONCE STA Sodium Chloride 0.9% [Sodium Chloride] 1,000 ml MEDS 02/01/17 03:[address] CHEST W/O CONTRAST Stat RADS 02/01/17 03:[address] HEAD W/O CONTRAST Stat RADS 02/01/17 03:35 Completed Medications Generic Name Dose Route Start Last Admin Trade Name Freq PRN Reason Stop Dose Admin Sodium Chloride 1 syr 02/01/17 03:34 02/01/17 04:17 Saline Flush IVF 1 syr PRN PRN Administration To flush IV Discontinued Medications Generic Name Dose Route Start Last Admin Trade Name Freq PRN Reason Stop Dose Admin Sodium Chloride 1,000 mls @ 1,000 mls/hr 02/01/17 03:35 02/01/17 04:17 Sodium Chloride IV 02/01/17 04:34 1,000 mls/hr BOLUS STA Administration Ketorolac Tromethamine 30 mg 02/01/17 03:36 02/01/17 04:17 Toradol IVP 02/01/17 03:37 30 mg ONCE STA Administration Ondansetron HCl 4 mg 02/01/17 03:36 02/01/17 04:17 Zofran 4 Mg/2 Ml IVP 02/01/17 03:37 4 mg ONCE STA Administration Vital Signs: Temp Pulse Resp BP Pulse Ox 02/01/17 03:07 97.3 F L 84 20 122/83 99 Departure - Departure Time of Disposition: 05:16 Disposition: HOME SELF-CARE Discharge Problem: Migraine Qualifiers: Migraine type: without aura Status migrainosus presence: without status migrainosus Intractability: not intractable Qualified Code(s): G43.009 - Migraine without aura, not intractable, without status migrainosus Instructions: Migraine Headache (ED) Condition: Good Pt referred to PMD for follow-up: Yes Additional Instructions: f/u with pcp--consider neurology referral--have your pcp recheck potassium-- stop smoking Allergies/Adverse Reactions: Allergies Latex, Natural Rubber Adverse Reaction (Verified 02/01/17 03:15) Home Medications: Ambulatory Orders Ipratropium [place] [Atrovent Hfa] 2 puff IH BID #1 puff 12/22/16 Losartan Potassium [Cozaar] 50 mg PO DAILY #30 tablet 12/22/16 Magnesium Oxide [Mag-Ox] 400 mg PO BID #14 tablet 12/22/16 Venlafaxine HCl [Effexor Xr] 150 mg PO BID 12/29/16 Potassium Chloride [K-Dur] 20 meq PO BID 02/01/17 Disposition Discussed With: Patient, Family
== END 2017-02-01 05:50 | disposition home or self-care (01) ==
LOC: ED 03:03
DX: G43.009 Migraine without aura, not intractable, without status migrainosus (principal); F17.210 Nicotine dependence, cigarettes, uncomplicated
CPT/HCPCS: 36415; 80053; 81001; 82550; 83880; 84484; 85025; 87040; 87086; 87651; 87804; 87880; 93005; 93010; 96361; 96374; 96375; 99283

== ENCOUNTER 2017-04-13 12:17 | Outpatient (CLI) | END 2017-04-13 12:18 | disposition home or self-care (01) | LOC: LAB 12:17 | PROVIDERS: ATTEND Emergency Medicine | DX: E87.6 Hypokalemia (principal) | CPT/HCPCS: 36415; 80053 ==

== ENCOUNTER 2017-05-16 11:27 | Outpatient (CLI) | END 2017-05-16 11:28 | disposition home or self-care (01) | LOC: RHC-LAB 11:27 | PROVIDERS: ATTEND Emergency Medicine | DX: I10 Essential (primary) hypertension (principal) | CPT/HCPCS: 36415; 80053; 80061; 84443; 85025 ==

== ENCOUNTER 2017-07-20 10:44 | Emergency (ER) ==
[2017-07-20 10:48] VITALS: BP 137/87; TEMP 98.2; BMI 29.0
--- NOTE | 2017-07-20 11:11 | ED.PDOC ---
General ED Provider: Dr. GUERA MCKEON Chief Complaint: Abdominal Pain Stated Complaint: Lower abdominal discomfort. PATIENT STATES THAT FOR THE PAST TWO DAYS SHE HAS BEEN EXPERIENCING LEFT SIDED SUPRAPUBIC PAIN. PATIENT DENIES ANY OTHER SYMPTOMS, OR RADIATION OF THE PAIN TO ANY OTHER LOCATION. PATIENT STATES THAT SHE HAS NOT BEEN SEXUALLY ACTIVE IN OVER A YEAR, AND HAD AN ABLATION TWO YEARS AGO Time Seen by Physician: 12:10 Mode of Arrival: Walk-In Information Source: Patient Exam Limitations: No limitations [facility] and Triage Documentation Reviewed and Agree: Yes Reviewed sepsis parameters & appropriate labs ordered?: Yes System Inflammatory Response Syndrome: Not Applicable Sepsis Protocol: For patient's 13 years and over: Temp is 96.8 and below OR 101 and greater Pulse >90 BPM Resp >20/minute Acutely Altered Mental Status Are patient's symptoms suggestive of a new infection, such as: -Pneumonia -Skin, Soft Tissue -Endocarditis -UTI -Bone, Joint Infection -Implantable Device -Acute Abdominal Infection -Wound Infection -Meningitis -Blood Stream Catheter Infection -Unknown System Inflammatory Response Syndrome: Not Applicable GI Complaint Exam - Abdominal Pain Complaint/Exam Onset: Sudden Duration: 2 days Symptoms Are: Still present Timing: Constant Initial Severity: Severe Current Severity: Moderate Location of Pain: LLQ Radiates To: Denies: Chest, Back, Flank, LLQ, RLQ, Inguinal Character: Reports: Dull, Aching, Throbbing Aggravating: Reports: Movement Alleviating: Reports: Rest Associated Signs and Symptoms: Denies: Back pain, Constipation, Blood in stool, Dysuria, Urinary frequency, Decreased urine output, Nausea, Vomiting, Diarrhea Cardiac Risk Factors: Reports: None Ectopic Risk Factors: Reports: None Abdominal Findings: Absent: Rebound tenderness, Peritoneal signs, McBurney's Point tender Differential Diagnoses: Ovarian Cyst Review of Systems - Review Of Systems Constitutional: Reports: No symptoms Eyes: Reports: No symptoms Ears, Nose, Mouth, Throat: Reports: No symptoms Respiratory: Reports: No symptoms Cardiac: Reports: No symptoms GI: Reports: Abdominal pain. Denies: Abdomen distended, Blood streaked bowels, Constipated, Diarrhea, Nausea, Poor appetite, Poor fluid intake, Rectal bleeding , Vomiting : Reports: Pain. Denies: Burning, Dysuria, Discharge, Frequency, Flank pain, Hematuria, Incontinence Musculoskeletal: Reports: No symptoms Skin: Reports: No symptoms Neurological: Reports: No symptoms Endocrine: Reports: No symptoms Hematologic/Lymphatic: Reports: No symptoms All Other Systems: Reviewed and Negative Past Medical History - Past Medical History Previously Healthy: No Endocrine: Reports: None Cardiovascular: Reports: Hypertension Respiratory: Reports: None Hematological: Reports: None Gastrointestinal: Reports: GERD Genitourinary: Reports: None Neuro/Psych: Reports: Depression Musculoskeletal: Reports: None Cancer: Reports: None Last Menstrual Period: N/A - Surgical History General Surgical History: Reports: Orthopedic (09/24 knee) - Family History Family History: Reports: Hypertension, Diabetes - Social History Smoking Status: Current every day smoker, Light tobacco smoker Hx Substance Use: No Alcohol Screening: None - Immunizations Tetanus Shot up to Date: No Physical Exam - Physical Exam Appearance: Well-appearing Ill-appearing: Mild Pain Distress: Mild Eyes: PENNY, EOMI, Conjunctiva clear ENT: Ears normal, Nose normal, Oropharynx normal Respiratory: Airway patent, Breath sounds clear, Breath sounds equal, Respirations nonlabored Cardiovascular: RRR, Pulses normal, No rub, No murmur GI/: Soft, No masses, Bowel sounds normal, No Organomegaly, Tender Musculoskeletal: Normal strength, ROM intact, No edema, No calf tenderness Skin: Warm, Dry Neurological: Sensation intact, Motor intact, Reflexes intact, Cranial nerves intact, Alert, Oriented Psychiatric: Affect appropriate, Mood appropriate Interpretation - Radiology Interpretation Radiology Interpretation By: Radiologist Radiology Results: No acute changes Exam Interpreted: CT Scan Re-Evaluation - Re-Evaluation Time of Re-Evaluation: 12:50 Status: Improved Vital Signs Stable: Yes Appearance: NAD Lungs: Clear Skin: Warm and Dry Neuro: Alert and Oriented X3 CV: RRR Critical Care Note - Critical Care Note Total Time (mins): 0 Course - Course Hematology/Chemistry: 07/20/17 11:20 07/20/17 11:20 Orders, Labs, Meds: Lab Review 07/20/17 07/20/17 07/20/17 10:55 11:04 11:20 WBC 10.05 RBC 4.52 Hgb 14.2 Hct 41.6 MCV 92.0 MCH 31.4 H MCHC 34.1 RDW Coeff of Michael 13.2 Plt Count 219 Immature Gran % (Auto) 0.2 Neut % (Auto) 58.0 Lymph % (Auto) 34.8 [place] % (Auto) 5.5 Eos % (Auto) 1.0 Baso % (Auto) 0.5 Immature Gran # (Auto) 0.0 Neut # (Auto) 5.8 Lymph # (Auto) 3.5 H [place] # (Auto) 0.6 Eos # (Auto) 0.1 Baso # (Auto) 0.1 Sodium Potassium Chloride Carbon Dioxide Anion Gap BUN Creatinine Estimated GFR (MDRD) BUN/Creatinine Ratio Glucose Calcium Total Bilirubin AST ALT Alkaline Phosphatase Total Protein Albumin Globulin Albumin/Globulin Ratio Urine Color Yellow Urine Clarity Clear Urine pH 6.0 Ur Specific [place] 1.010 Urine Protein Negative Urine Glucose (UA) Negative Urine Ketones Negative Urine Blood Negative Urine Nitrite Negative Urine Bilirubin Negative Urine Urobilinogen 0.2 Ur Leukocyte Esterase Trace Urine Microscopic WBC 0-2 Ur Squamous Epith Cells 5-10 Urine Opiates Screen Negative Ur Oxycodone Screen Negative Urine Methadone Screen Negative Ur Propoxyphene Screen Negative Ur Barbiturates Screen Negative U Tricyclic Antidepress Negative Ur Phencyclidine Scrn Negative Ur Amphetamine Screen Negative U Methamphetamines Scrn Negative U Benzodiazepines Scrn Positive Urine Cocaine Screen Negative U Cannabinoids Screen Positive 07/20/17 11:20 WBC RBC Hgb Hct MCV MCH MCHC RDW Coeff of Michael Plt Count Immature Gran % (Auto) Neut % (Auto) Lymph % (Auto) [place] % (Auto) Eos % (Auto) Baso % (Auto) Immature Gran # (Auto) Neut # (Auto) Lymph # (Auto) [place] # (Auto) Eos # (Auto) Baso # (Auto) Sodium 139 Potassium 4.0 Chloride 103 Carbon Dioxide 25 Anion Gap 15.0 BUN 9 Creatinine 0.82 Estimated GFR (MDRD) 75.00 BUN/Creatinine Ratio 10.97 Glucose 79 Calcium 9.1 Total Bilirubin 0.3 AST 9 L ALT 9 L Alkaline Phosphatase 77 Total Protein 7.5 Albumin 3.7 Globulin 3.8 Albumin/Globulin Ratio 0.97 Urine Color Urine Clarity Urine pH Ur Specific [place] Urine Protein Urine Glucose (UA) Urine Ketones Urine Blood Urine Nitrite Urine Bilirubin Urine Urobilinogen Ur Leukocyte Esterase Urine Microscopic WBC Ur Squamous Epith Cells Urine Opiates Screen Ur Oxycodone Screen Urine Methadone Screen Ur Propoxyphene Screen Ur Barbiturates Screen U Tricyclic Antidepress Ur Phencyclidine Scrn Ur Amphetamine Screen U Methamphetamines Scrn U Benzodiazepines Scrn Urine Cocaine Screen U Cannabinoids Screen Orders Category Date Time Status NPO REMINDER: IMAGING ONCE CARE 07/20/17 11:03 Completed IV [ED IV/MEDIPORT/POWERPORT] .ONCE EMERGENCY 07/20/17 11:24 Active CBC W/ AUTO DIFF Stat LAB 07/20/17 11:20 Completed CMP [COMPREHENSIVE METABOLIC PANEL] Stat LAB 07/20/17 11:20 Completed UA [URINALYSIS C & S IF INDICATED] Stat LAB 07/20/17 11:04 Completed URINE DRUG SCREEN (RAPID FOR ED) [DRUG SCREEN, URINE, LAB 07/20/17 10:55 Completed RAPID] Stat 0.9 % Sodium Chloride [Saline Flush] MEDS 07/20/17 11:24 Active 1 syr IVF PRN PRN Ketorolac Tromethamine [Toradol] MEDS 07/20/17 11:24 Discontinued 30 mg IVP ONCE STA CT ABDOMEN/PELVIS W/WO CONTRAS Stat RADS 07/20/17 11:01 Completed Medications Generic Name Dose Route Start Last Admin Trade Name Freq PRN Reason Stop Dose Admin Sodium Chloride 1 syr 07/20/17 11:24 Saline Flush IVF PRN PRN To flush IV Discontinued Medications Generic Name Dose Route Start Last Admin Trade Name Freq PRN Reason Stop Dose Admin Ketorolac Tromethamine 30 mg 07/20/17 11:24 07/20/17 12:14 Toradol IVP 07/20/17 11:25 30 mg ONCE STA Administration Vital Signs: Temp Pulse Resp BP Pulse Ox 07/20/17 10:45 98.2 F 88 16 137/87 96 Departure - Departure Time of Disposition: 13:15 Disposition: HOME SELF-CARE Discharge Problem: Abdominal pain Instructions: Umbilical Hernia (ED), Acute Abdominal Pain (ED) Condition: Good Pt referred to PMD for follow-up: Yes (1 wk) IPMP verified?: No Additional Instructions: Monitor for recurrence Avoid heavy lifting STAY WELL HYDRATED FOLLOW UP IF RECURS OR WORSENS Allergies/Adverse Reactions: Allergies adhesive tape Adverse Reaction (Verified 07/20/17 10:48) Latex, Natural Rubber Adverse Reaction (Verified 02/01/17 03:15) Home Medications: Ambulatory Orders Alprazolam [Xanax Xr] 1 mg PO BID 05/16/17 Disposition Discussed With: Patient
[2017-07-20] MEDS ORDERED: TORADOL IVP STA (11:24)
--- NOTE | 2017-07-20 12:31 | CT ---
EXAM: CT abdomen with and without contrast. CT pelvis with and without contrast. HISTORY: Generalized abdominal pain. COMPARISON: 05/02/2008. TECHNIQUE: Multiple axial images of the abdomen and pelvis were obtained prior to and following intr avenous administration of 75 mL of Omnipaque 350, low osmolar. Images reformatted in the sagittal an d coronal plane. FINDINGS: The lung bases are clear. Degenerative changes are present in the spine. The liver, gallbladder, pancreas, spleen, adrenal glands, and kidneys are unremarkable. No calcified renal stones or hydronephrosis detected. The bowel is normal in course and caliber without evidence for obstruction or inflammatory process. The appendix is normal. Small fat-containing umbilical hernia noted. Uterus demonstrates normal con tour. Urinary bladder is unremarkable. No free fluid, free air or lymphadenopathy identified. IMPRESSION: No acute abnormality within the abdomen or pelvis.
== END 2017-07-20 13:45 | disposition home or self-care (01) ==
LOC: ED 10:44
DX: R10.32 Left lower quadrant pain (principal); I10 Essential (primary) hypertension; F17.210 Nicotine dependence, cigarettes, uncomplicated
CPT/HCPCS: 36415; 80053; 80306; 81001; 85025; 96374; 96375; 99283

== ENCOUNTER 2017-07-21 06:05 | Observation (INO) ==
[2017-07-21] MEDS ORDERED: SODIUM CHLORIDE 1,000 ML IV STA (06:29)
[2017-07-21] MEDS ORDERED: MORPHINE 4 MG/ML SYRINGE IVP STA (06:29)
[2017-07-21] MEDS ORDERED: ZOFRAN 4 MG/2 ML IVP STA ×2 (06:29→10:00)
--- NOTE | 2017-07-21 09:35 | CT ---
EXAM: CT of the abdomen pelvis with and without contrast History: Left lower quadrant abdominal pain. Comparison: CT abdomen pelvis 07/20/2017 Technique: Multiplanar CT images through the abdomen pelvis were obtained with and without the admini stration of IV contrast. Enteric contrast was also administered. Findings: Lung bases are clear. No acute osseous abnormalities. Severe degenerative disc disease ag ain seen at L5-S1 with endplate sclerosis and vacuum disc phenomenon. No renal stones and no hydronephrosis. No discrete gallstones identified by CT. No ureteral calculi . No peripancreatic inflammation. The liver and spleen are unremarkable. No pancreatic masses. Ad renal glands are unremarkable. No renal masses. No bowel obstruction. The appendix is normal. No free air. No inflammatory stranding. No perirectal inflammation. Adnexal structures appear appropr iate for patient's age. Mild to moderate bladder distension but no bladder wall thickening. No lymp hadenopathy. Small fat-containing umbilical hernia. Mild wall thickening of the colon but is not well distended. Impression: 1. Probable mild colitis. No bowel obstruction. 2. Severe degenerative disc disease at L5-S1.
--- NOTE | 2017-07-21 09:45 | ED.PDOC ---
General ED Provider: Dr. HIEN LAGUNAS Chief Complaint: Abdominal Pain Stated Complaint: ABDOMINAL PAIN LLQ Time Seen by Physician: 07:00 (SEEN WITH LUCIO) Mode of Arrival: Walk-In Information Source: Patient Exam Limitations: No limitations [facility] and Triage Documentation Reviewed and Agree: Yes Reviewed sepsis parameters & appropriate labs ordered?: Yes System Inflammatory Response Syndrome: Not Applicable Sepsis Protocol: For patient's 13 years and over: Temp is 96.8 and below OR 101 and greater Pulse >90 BPM Resp >20/minute Acutely Altered Mental Status Are patient's symptoms suggestive of a new infection, such as: -Pneumonia -Skin, Soft Tissue -Endocarditis -UTI -Bone, Joint Infection -Implantable Device -Acute Abdominal Infection -Wound Infection -Meningitis -Blood Stream Catheter Infection -Unknown System Inflammatory Response Syndrome: Not Applicable GI Complaint Exam - Abdominal Pain Complaint/Exam Onset: Gradual Duration: 4 DAYS Symptoms Are: Still present Timing: Intermittent Initial Severity: Mild Current Severity: Mild Location of Pain: LLQ Radiates To: Denies: Chest, Back, Flank, LLQ, RLQ, Inguinal Character: Reports: Aching Aggravating: Reports: None Alleviating: Reports: None Associated Signs and Symptoms: Reports: Diarrhea. Denies: Diaphoresis, Fever, Cough, Chest pain, Dizziness, Back pain, Constipation, Blood in stool, Dysuria, Urinary frequency, Decreased urine output, Decreased appetite, Vaginal bleeding , Vaginal discharge, Nausea, Vomiting, Sore throat, Decreased activity Related History: Reports: Similar episode AAA Risk Factors: Reports: Hypertension Cardiac Risk Factors: Reports: Hypertension Ectopic Risk Factors: Reports: None Ovarian Torsion Risk Factors: Reports: None Surgical Obstruction Risk Factors: Reports: None Related Surgical History: Reports: None Patient Rh Status: Unknown Abdominal Findings: Present: None. Absent: Abdominal distention, Unequal femoral pulses, Rebound tenderness, Peritoneal signs, McBurney's Point tender, Hernia, Inguinal swelling Differential Diagnoses: Bowel Obstruction, Constipation, Gastroenteritis, Pancreatitis Review of Systems - Review Of Systems Constitutional: Reports: No symptoms Eyes: Reports: No symptoms Ears, Nose, Mouth, Throat: Reports: No symptoms Respiratory: Reports: No symptoms Cardiac: Reports: No symptoms GI: Reports: Abdominal pain, Diarrhea (PRIOR TO PAIN IS AN ISSUE SINCE PAIN STARTED ) : Reports: No symptoms Musculoskeletal: Reports: No symptoms Skin: Reports: No symptoms Neurological: Reports: No symptoms Endocrine: Reports: No symptoms Hematologic/Lymphatic: Reports: No symptoms All Other Systems: Reviewed and Negative Past Medical History - Past Medical History Previously Healthy: No Endocrine: Reports: None Cardiovascular: Reports: Hypertension Respiratory: Reports: None Hematological: Reports: None Gastrointestinal: Reports: GERD Genitourinary: Reports: None Neuro/Psych: Reports: Depression Musculoskeletal: Reports: None Cancer: Reports: None Last Menstrual Period: 2 YEARS AGO - Surgical History General Surgical History: Reports: Orthopedic (09/24 knee) - Family History Family History: Reports: Hypertension, Diabetes - Social History Smoking Status: Current every day smoker, Heavy tobacco smoker Hx Substance Use: No Alcohol Screening: None - Immunizations Tetanus Shot up to Date: Yes Physical Exam - Physical Exam Appearance: Well-appearing, No pain distress, Well-nourished Eyes: PENNY, EOMI, Conjunctiva clear ENT: Ears normal, Nose normal, Oropharynx normal Respiratory: Airway patent, Breath sounds clear, Breath sounds equal, Respirations nonlabored Cardiovascular: RRR, Pulses normal, No rub, No murmur GI/: Tender (LLQ) Musculoskeletal: Normal strength, ROM intact, No edema, No calf tenderness Skin: Warm, Dry, Normal color Neurological: Sensation intact, Motor intact, Reflexes intact, Cranial nerves intact, Alert, Oriented Psychiatric: Affect appropriate, Mood appropriate Interpretation - Radiology Interpretation Radiology Interpretation By: Radiologist Radiology Results: Positive (COLITIS) Critical Care Note - Critical Care Note Total Time (mins): 0 Course - Course Hematology/Chemistry: 07/21/17 06:41 07/21/17 06:41 Orders, Labs, Meds: Lab Review 07/21/17 07/21/17 06:41 06:41 WBC 14.84 H RBC 4.41 Hgb 13.8 Hct 40.4 MCV 91.6 MCH 31.3 H MCHC 34.2 RDW Coeff of Michael 13.1 Plt Count 241 Immature Gran % (Auto) 0.4 Neut % (Auto) 82.0 Lymph % (Auto) 13.6 [place] % (Auto) 3.4 Eos % (Auto) 0.3 Baso % (Auto) 0.3 Immature Gran # (Auto) 0.1 Neut # (Auto) 12.2 H Lymph # (Auto) 2.0 [place] # (Auto) 0.5 Eos # (Auto) 0.1 Baso # (Auto) 0.1 ESR 7 Sodium 136 Potassium 3.3 L Chloride 104 Carbon Dioxide 22 Anion Gap 13.3 BUN 9 Creatinine 0.85 Estimated GFR (MDRD) 72.00 BUN/Creatinine Ratio 10.58 Glucose 97 Calcium 9.2 Total Bilirubin 0.3 AST 10 L ALT 8 L Alkaline Phosphatase 77 Total Protein 7.3 Albumin 3.8 Globulin 3.5 Albumin/Globulin Ratio 1.09 Amylase 187 H Lipase 277 H Orders Category Date Time Status ADMIT OBSERVATION [PLACE PATIENT OBSERVATION] .TO ADMISSION 07/21/17 09:43 Completed MEDSURG (NON-MONITORED BED) NPO REMINDER: IMAGING ONCE CARE 07/21/17 06:31 Completed VITAL SIGNS Q4HR CARE 07/21/17 09:39 Ordered REGULAR DIET DIETARY 07/21/17 Lunch Ordered IV [ED IV/MEDIPORT/POWERPORT] .ONCE EMERGENCY 07/21/17 06:28 Active AMYLASE Stat LAB 07/21/17 06:41 Completed CBC W/ AUTO DIFF DAILY@0600 LAB 07/22/17 06:00 Ordered CBC W/ AUTO DIFF DAILY@0600 LAB 07/23/17 06:00 Ordered CBC W/ AUTO DIFF Stat LAB 07/21/17 06:41 Completed COMPREHENSIVE METABOLIC PANEL DAILY@0600 LAB 07/22/17 06:00 Ordered COMPREHENSIVE METABOLIC PANEL DAILY@0600 LAB 07/23/17 06:00 Ordered COMPREHENSIVE METABOLIC PANEL Stat LAB 07/21/17 06:41 Completed ESR Stat LAB 07/21/17 06:41 Completed LIPASE Stat LAB 07/21/17 06:41 Completed URINALYSIS C & S IF INDICATED Stat LAB 07/21/17 06:39 Ordered 0.9 % Sodium Chloride [Saline Flush] MEDS 07/21/17 06:28 Active 1 syr IVF PRN PRN Losartan Potassium [Cozaar] MEDS 07/21/17 10:00 Active 50 mg PO DAILY Morphine Sulfate [Morphine 4 mg/ml Syringe] MEDS 07/21/17 06:29 Discontinued 2 mg IVP ONCE STA Ondansetron HCl/Pf [Zofran 4 mg/2 ml] MEDS 07/21/17 06:29 Discontinued 4 mg IVP ONCE STA Sodium Chloride 0.9% [Sodium Chloride] 1,000 ml MEDS 07/21/17 06:29 Active IV 100 mls/hr Sodium Chloride 0.9% [Sodium Chloride] 1,000 ml MEDS 07/21/17 10:00 Ordered IV 75 mls/hr CT ABDOMEN/PELVIS W/WO CONTRAS Stat RADS 07/21/17 06:29 Completed Medications Generic Name Dose Route Start Last Admin Trade Name Freq PRN Reason Stop Dose Admin Sodium Chloride 1,000 mls @ 100 mls/hr 07/21/17 06:29 07/21/17 06:44 Sodium Chloride IV 07/21/17 16:28 100 mls/hr .Q10H STA Administration Sodium Chloride 1,000 mls @ 75 mls/hr 07/21/17 10:00 Sodium Chloride IV .[id number] ANGELES Losartan Potassium 50 mg 07/21/17 10:00 Cozaar PO DAILY ANGELES Sodium Chloride 1 syr 07/21/17 06:28 07/21/17 06:49 Saline Flush IVF 1 syr PRN PRN Administration To flush IV Discontinued Medications Generic Name Dose Route Start Last Admin Trade Name Freq PRN Reason Stop Dose Admin Morphine Sulfate 2 mg 07/21/17 06:29 07/21/17 06:47 Morphine 4 Mg/Ml Syringe IVP 07/21/17 06:30 2 mg ONCE STA Administration Ondansetron HCl 4 mg 07/21/17 06:29 07/21/17 06:44 Zofran 4 Mg/2 Ml IVP 07/21/17 06:30 4 mg ONCE STA Administration Vital Signs: Temp Pulse Resp BP Pulse Ox 07/21/17 06:06 97 F L 94 H 20 144/104 H 96 Departure - Departure Time of Disposition: 09:59 Disposition: PLACED OBSERVATION Discharge Problem: Abdominal pain Instructions: Abdominal Pain (ED) Condition: Good Pt referred to PMD for follow-up: Yes IPMP verified?: No Additional Instructions: Please call your Family Physician as soon as possible to schedule a follow-up appointment. Allergies/Adverse Reactions: Allergies adhesive tape Adverse Reaction (Verified 07/21/17 06:17) Latex, Natural Rubber Adverse Reaction (Verified 07/21/17 06:17) Home Medications: Ambulatory Orders Alprazolam [Xanax Xr] 1 mg PO BID 05/16/17 Disposition Discussed With: Patient
[2017-07-21] MEDS ORDERED: COZAAR PO SCH (10:00)
[2017-07-21] MEDS ORDERED: MORPHINE 4 MG/ML VIAL IVP STA (10:04)
[2017-07-21] MEDS ORDERED: MORPHINE 4 MG/ML SYRINGE ONE (10:10)
[2017-07-21 11:00] VITALS: BMI 29.9
[2017-07-21] MEDS ORDERED: FLEXERIL PO PRN (12:57)
[2017-07-21] MEDS ORDERED: ZOFRAN 4 MG/2 ML IVP PRN (12:59)
[2017-07-21] MEDS: DEMEROL 50 MG/ML VIAL IVP PRN ×2 (13:15→21:19)
[2017-07-21] MEDS: SODIUM CHLORIDE 1,000 ML IV SCH (17:24)
[2017-07-21] MEDS ORDERED: ALPRAZOLAM 1 MG PO SCH (21:00)
[2017-07-21] MEDS: NON-FORMULARY MEDICATION (Alprazolam [Xanax] 1 MG) PO SCH (21:10)
[2017-07-21] MEDS: NON-FORMULARY MEDICATION (Venlafaxine Hcl [Effexor Xr] 150 MG) PO SCH (21:11)
[2017-07-22] MEDS: SODIUM CHLORIDE 1,000 ML IV SCH (05:22)
[2017-07-22] MEDS ORDERED: MOTRIN PO PRN (07:56)
[2017-07-22] MEDS: NON-FORMULARY MEDICATION (Alprazolam [Xanax] 1 MG) PO SCH ×2 (08:08→20:27)
[2017-07-22] MEDS: NON-FORMULARY MEDICATION (Venlafaxine Hcl [Effexor Xr] 150 MG) PO SCH ×2 (08:10→20:27)
[2017-07-22] MEDS ORDERED: BUSPAR PO SCH (09:00)
[2017-07-22] MEDS ORDERED: NON-FORMULARY MEDICATION (Losartan Potassium [Losartan Potassium] 50 MG) PO SCH (09:00)
[2017-07-22] MEDS: DEMEROL 50 MG/ML VIAL IVP PRN (10:35)
[2017-07-23 05:37] VITALS: BP 131/92; TEMP 98.2
--- NOTE | 2017-07-24 11:19 | HP ---
DATE OF SERVICE: 07/21/17 CHIEF COMPLAINT: Nausea and vomiting HISTORY OF PRESENT ILLNESS: This is a 46 year old female who came to the emergency room for the nausea and vomiting, abdominal pain and not able to keep anything down. The patient was seen in the emergency room two days ago and was sent home but was not feeling good so came back to the emergency room. This time the amylase and lipase was elevated [address] of abdominal pelvis showed some colitis in left lower quadrant area. At that time the patient being admitted to the hospital for intractable nausea and vomiting and early pancreatitis. REVIEW OF SYSTEMS: CONSTITUTIONAL: No fever, no chills. Weakness and tiredness. HEENT: Normal. ENDOCRINE: No weight gain; no weight loss. CVS: No chest pain. No PND, no orthopnea. No shortness of breath. No PND, no orthopnea. RESPIRATORY: No cough, no congestion. No hemoptysis. GI: Nausea, Vomiting. Abdominal pain. No melena. : No hematuria. No polyuria. MUSCULOSKELETAL: No joint swelling. PSYCHIATRIC: Not anxious. No depression. No suicidal thoughts. No homicidal thoughts. SKIN: Intact, no open lesions. PAST MEDICAL HISTORY: Sleep apnea on CPAP Gastrointestinal disorder Nausea Vomiting Kidney stones Osteoarthritis Depression Anxiety PAST SURGICAL HISTORY: Tubal ligation Left knee tendon/ligament surgery Ablation PERSONAL HISTORY: The patient does not smoke or drink. No alcohol and no drugs. FAMILY HISTORY: Heart problems Diabetes MEDICATIONS: Cyclobenzaprine Losartan potassium Vistaril Effexor XR Buspirone Xanax ALLERGIES: Adhesive tape Latex Natural rubber PHYSICAL EXAMINATION: V/S: Temperature 98.5, pulse 74, blood pressure 147/90, respiratory rate 18 and oxygen saturation 99%. HEENT: Atraumatic, normocephalic. No scleral icterus. Pallor positive. Mucosa dry. NECK: Supple. No JVD, no bruit. No lymphadenopathy. No thyromegaly. HEART: S1, S2 normal. No murmur. No cyanosis or clubbing. No ascites. LUNGS: Clear to auscultation. No rales or rhonchi. ABDOMEN: Soft, Left lower quadrant tenderness. Bowel sounds are active. No CVA tenderness. No rigidity or guarding. EXTREMITIES: No pedal edema. No cyanosis or clubbing MUSCULOSKELETAL: Normal joints, no swelling. NEUROLOGIC: The patient is alert and oriented. SKIN: Intact; no open lesions. LYMPHATIC: No lymph nodes palpable. LABS: Sodium 136, potassium 3.3, chloride 104, bicarb 22, BUN 9, creatinine 0.85 and glucose 97. WBC 17.84, hgb 13.8, hct 40.4, plt count 241. ASSESSMENT: 1. Intractable nausea and vomiting 2. Abdominal pain 3. Colitis 4. Early pancreatitis 5. Depression 6. Anxiety disorder PLAN: 1. Admit 2. IV fluids 3. Replace potassium 4. Demerol for pain 5. Clear liquid diet 6. Continue the medication TIME SPENT: MORE THAN 70 minutes MTDD
--- NOTE | 2017-07-24 13:01 | PN ---
DATE OF SERVICE: 07/22/17 SUBJECTIVE: The patient was admitted yesterday with the nausea and vomiting, constipation and abdominal pain. Left lower quadrant pain is better, passing gas. Was able to keep clear liquid diet. REVIEW OF SYSTEMS: CONSTITUTIONAL: No fever, no chills. HEENT: Normal. ENDOCRINE: No weight gain, no weight loss. CVS: No angina symptoms. No CHF symptoms. No palpitations. No atypical chest pain for CAD. No shortness of breath. No PND, no orthopnea. RESPIRATORY: No cough, no hemoptysis. GI: No nausea, no vomiting. No abdominal pain. : No hematuria. No polyuria. MUSCULOSKELETAL: No joint swelling. PSYCHIATRIC: Not anxious. No depression. No suicidal thoughts. No homicidal thoughts. SKIN: Intact. No rash. PHYSICAL EXAMINATION: V/S: Blood pressure 159/109, respiratory rate 20, heart rate 84, temperature 98.1 with saturation 98%. HEENT: Normocephalic, atraumatic. Mucosa dry. NECK: Supple. No JVD, no carotid bruit. No lymphadenopathy. LUNGS: Clear to auscultation. No rales or rhonchi. HEART: S1, S2 normal. No S3. No murmur, gallop or regurgitation. ABDOMEN: Soft, mild discomfort all over. Bowel sounds sluggish. No rigidity. No rebound or guarding. No CVA tenderness. EXTREMITIES: No cyanosis, clubbing or pedal edema. MUSCULOSKELETAL: No joint swelling. NEUROLOGIC: Awake, alert, oriented times three. No focal deficit. LYMPHATIC: No lymph nodes palpable. SKIN: Intact. LABS: Sodium 141, potassium 3.6, chloride 106, bicarb 26, BUN 6, creatinine 0.72, WBC 9.33, hgb 13.0, hct 38.9, plt count 195 ASSESSMENT: 1. Colitis, slight elevate amylase and lipase with early pancreatitis 2. Hypokalemia which is better 3. Hypertension 4. Anxiety disorder 5. Depression PLAN: 1. Make it full liquid diet 2. Out of bed to chair activity as tolerated 3. Will stop the IV fluids Will follow the patient in daily rounds. TIME SPENT: More than 35 minutes MTDD
--- NOTE | 2017-07-28 13:39 | DS ---
DATE OF SERVICE: 07/23/17 FINAL DIAGNOSIS: 1. ACUTE COLITIS, LEFT-SIDED SIGMOID AND C.DIFF 2. HYPOKALEMIA 3. ANXIETY/DEPRESSION 4. SLEEP APNEA ON CPAP 5. HYPERTENSION 6. HISTORY OF TUBAL ABLATION 7. LEFT KNEE TENDON LIGAMENT SURGERY/ABLATION DISCHARGE INSTRUCTIONS: Followup at the [facility] within 4 to 5 days. Call the office and make an appointment. MEDICATIONS AT DISCHARGE: Cyclobenzaprine 10 mg p.o. b.i.d. p.r.n. Losartan 50 mg p.o. daily Effexor 150 mg p.o. b.i.d. Buspar 20 mg p.o. daily Xanax 1 mg p.o. b.i.d. NEW PRESCRIPTIONS: Flagyl 500 mg p.o. t.i.d. DIET INSTRUCTIONS: Soft; cardiac ACTIVITY: As much as tolerated SMOKING: Advised to quit DISEASE SPECIFIC EDUCATION: C. diff colitis; needing colonoscopy discussed and verbalized understanding. HOSPITAL COURSE: This is a 47-year-old female who came to the emergency room on 07/20 with nausea , vomiting, left-sided abdominal pain. CT of the abdomen was negative. Blood workup was negative and was sent home. She came back again the next day with similar problems and found to have a white count of 14,000. Amylase 187, lipase 277. CT of abdomen and pelvis showed left-sided acute colitis and intractable nausea and vomiting. At that time, the patient was admitted to the hospital, started on IV fluids. Potassium replaced, it was 3.3. With the given treatment , the patient started feeling better, did not have any problems. Stool for C. diff was sent. So far did not come back. Given the source of colitis and risk of C. diff, we will go ahead and treat patient with Flagyl for diarrhea. Dehydration and hypokalemia discussed with the patient. Advised to increase hydration whenever patient has diarrhea issues. TIME SPENT: MORE THAN 65 MINUTES MTDD
== END 2017-07-23 08:32 | disposition home or self-care (01) ==
LOC: ED 06:05 → MEDSURG B 09:42
PROVIDERS: ADMIT Emergency Medicine; ATTEND Emergency Medicine
DX: R11.2 Nausea with vomiting, unspecified (principal); K52.9 Noninfective gastroenteritis and colitis, unspecified; E87.6 Hypokalemia; I10 Essential (primary) hypertension; G47.30 Sleep apnea, unspecified; F41.8 Other specified anxiety disorders
CPT/HCPCS: 36415; 80053; 81001; 82150; 83690; 84145; 85025; 85651; 87040; 87493; 96360; 96361; 96374; 96375; 96376; 99217; 99220; 99226; 99284

== ENCOUNTER 2017-11-28 13:26 | Emergency (ER) ==
[2017-11-28 13:33] VITALS: BP 141/87; TEMP 96; BMI 29.7
[2017-11-28] MEDS ORDERED: ZOFRAN 4 MG/2 ML IM STA (14:32)
[2017-11-28] MEDS ORDERED: DILAUDID 0.5 MG/0.5 ML SYRINGE IM STA (14:34)
--- NOTE | 2017-11-28 15:12 | ED.PDOC ---
General ED Provider: Dr. HIEN LAGUNAS Chief Complaint: Headache Stated Complaint: HEADACHE Time Seen by Physician: 13:30 (SEEN WITH BOBBI FROM ADMISTRATION) Mode of Arrival: Walk-In Information Source: Patient Exam Limitations: No limitations Primary Care Provider: THEODORE WOLF Nursing and Triage Documentation Reviewed and Agree: Yes Does patient meet sepsis criteria?: No If yes, has appropriate treatment been initiated?: No System Inflammatory Response Syndrome: Not Applicable Sepsis Protocol: For patient's 13 years and over: Temp is 96.8 and below OR 101 and greater Pulse >90 BPM Resp >20/minute Acutely Altered Mental Status Are patient's symptoms suggestive of a new infection, such as: -Pneumonia -Skin, Soft Tissue -Endocarditis -UTI -Bone, Joint Infection -Implantable Device -Acute Abdominal Infection -Wound Infection -Meningitis -Blood Stream Catheter Infection -Unknown Neurological Complaint Exam - Headache Complaint/Exam Onset: Gradual Duration: 1 DAY Symptoms Are: Still present Timing: Constant Episodes Lasting: Hours Worst Headache Ever: No Initial Severity: Moderate Current Severity: Moderate Location: Frontal, Temporal Character: Reports: Throbbing, Typical headache Aggravating: Reports: Exertion Alleviating: Reports: None Associated Signs and Symptoms: Reports: Nausea, Vomiting (X5). Denies: Dizziness, Seizure, Sinus pressure, Fever, Neck pain, Neck stiffness, Decreased LOC, Visual changes Related History: Reports: Similar episode Related Surgical History: Reports: None SAH Risk Factors: Reports: None Meningitis Risk Factors: Reports: None SDH Risk Factors: Reports: None Temporal Arteritis Risk Factors: Reports: Female, Normal Head CT Within Last 12 Months: Yes Fundoscopic Exam: Present: Normal Findings Papilledema Present: No Temporal Artery Tenderness: Present: None Sinus Tenderness: Present: None TMJ Tenderness: Present: None Glascow Coma Scale (see protocol): 15 Meningeal Signs Positive: No Pain on Passive Flexion-Positive Kernig's: No ROM Limited In: No Limitiations Focal Weakness: Present: None Review of Systems - Review Of Systems Constitutional: Reports: No symptoms Eyes: Reports: No symptoms Ears, Nose, Mouth, Throat: Reports: No symptoms Respiratory: Reports: No symptoms Cardiac: Reports: No symptoms GI: Reports: No symptoms : Reports: No symptoms Musculoskeletal: Reports: No symptoms Skin: Reports: No symptoms Neurological: Reports: Headache Endocrine: Reports: No symptoms Hematologic/Lymphatic: Reports: No symptoms All Other Systems: Reviewed and Negative Past Medical History - Past Medical History Previously Healthy: No Endocrine: Reports: None Cardiovascular: Reports: Hypertension Respiratory: Reports: None Hematological: Reports: None Gastrointestinal: Reports: GERD Genitourinary: Reports: None Neuro/Psych: Reports: Depression Musculoskeletal: Reports: None Cancer: Reports: None Last Menstrual Period: ablation - Surgical History General Surgical History: Reports: Orthopedic (09/24 knee) - Family History Family History: Reports: Hypertension, Diabetes - Social History Smoking Status: Current every day smoker, Heavy tobacco smoker Hx Substance Use: No Alcohol Screening: None Physical Exam - Physical Exam Appearance: Well-appearing, No pain distress, Well-nourished Eyes: PENNY, EOMI, Conjunctiva clear ENT: Ears normal, Nose normal, Oropharynx normal Respiratory: Airway patent, Breath sounds clear, Breath sounds equal, Respirations nonlabored Cardiovascular: RRR, Pulses normal, No rub, No murmur GI/: Soft, Nontender, No masses, Bowel sounds normal, No Organomegaly Musculoskeletal: Normal strength, ROM intact, No edema, No calf tenderness Skin: Warm, Dry, Normal color Neurological: Sensation intact, Motor intact, Reflexes intact, Cranial nerves intact, Alert, Oriented Psychiatric: Affect appropriate, Mood appropriate Interpretation - Radiology Interpretation Radiology Interpretation By: Radiologist Radiology Results: No acute changes Re-Evaluation - Re-Evaluation Time of Re-Evaluation: 15:00 (BOBBI FROM ADMINSTRAION PRESENT) Status: Improved Vital Signs Stable: Yes Pain Level: 2 Appearance: NAD Lungs: Clear Skin: Warm and Dry Neuro: Alert and Oriented X3 CV: RRR - Re-Evaluation Time of Re-Evaluation: 15:24 (BOBBI PRESENT, PT SAID SHE FEELS WELL AND HAPPY WITH CARE ) Status: Unchanged Vital Signs Stable: Yes Pain Level: 0 Appearance: NAD Skin: Warm and Dry Neuro: Alert and Oriented X3 CV: RRR (NO NEURO ISSUES) Critical Care Note - Critical Care Note Total Time (mins): 0 Course - Course Hematology/Chemistry: 11/28/17 14:45 11/28/17 14:45 Orders, Labs, Meds: Lab Review 11/28/17 11/28/17 14:45 14:45 WBC 13.28 H RBC 4.38 Hgb 13.8 Hct 41.0 MCV 93.6 MCH 31.5 H MCHC 33.7 RDW Coeff of Michael 13.5 Plt Count 227 Immature Gran % (Auto) 0.3 Neut % (Auto) 80.9 Lymph % (Auto) 13.6 Butts % (Auto) 3.5 Eos % (Auto) 1.2 Baso % (Auto) 0.5 Immature Gran # (Auto) 0.0 Neut # (Auto) 10.8 H Lymph # (Auto) 1.8 Butts # (Auto) 0.5 Eos # (Auto) 0.2 Baso # (Auto) 0.1 Sodium 138.0 Potassium 3.50 Chloride 104.0 Carbon Dioxide 30.0 Anion Gap 7.50 BUN 7.0 Creatinine 0.70 Estimated GFR (MDRD) 89.00 BUN/Creatinine Ratio 10.00 Glucose 95.0 Calcium 8.70 Total Bilirubin 0.20 AST 15.0 ALT 14.0 Alkaline Phosphatase 81.0 Total Protein 7.40 Albumin 3.90 Globulin 3.50 Albumin/Globulin Ratio 1.11 Orders Category Date Time Status CBC W/ AUTO DIFF Stat LAB 11/28/17 14:45 Completed COMPREHENSIVE METABOLIC PANEL Stat LAB 11/28/17 14:45 Completed Hydromorphone HCl [Dilaudid 0.5 mg/0.5 ml Syringe] MEDS 11/28/17 14:34 Discontinued 0.5 mg IM ONCE STA Ondansetron HCl/Pf [Zofran 4 mg/2 ml] MEDS 11/28/17 14:32 Discontinued 8 mg IM ONCE STA CT HEAD W/O CONTRAST Stat RADS 11/28/17 14:32 Completed Medications Discontinued Medications Generic Name Dose Route Start Last Admin Trade Name Freq PRN Reason Stop Dose Admin Hydromorphone HCl 0.5 mg 11/28/17 14:34 11/28/17 14:46 Dilaudid 0.5 Mg/0.5 Ml Syringe IM 11/28/17 14:35 0.5 mg ONCE STA Administration Ondansetron HCl 8 mg 11/28/17 14:32 11/28/17 14:47 Zofran 4 Mg/2 Ml IM 11/28/17 14:33 8 mg ONCE STA Administration Vital Signs: Temp Pulse Resp BP Pulse Ox 11/28/17 13:27 96 F L 76 16 141/87 H 95 Departure - Departure Time of Disposition: 16:00 Disposition: HOME SELF-CARE Discharge Problem: Headache Migraine headache Qualifiers: Migraine type: unspecified Status migrainosus presence: without status migrainosus Intractability: not intractable Qualified Code(s): G43.909 - Migraine, unspecified, not intractable, without status migrainosus Condition: Good Pt referred to PMD for follow-up: Yes IPMP verified?: No Additional Instructions: Please call your Family Physician as soon as possible to schedule a follow-up appointment. Prescriptions: Hydrocodone/Acetaminophen [Plano 10-325 Tablet] 1 each PO Q8HR #3 tablet Allergies/Adverse Reactions: Allergies adhesive tape Adverse Reaction (Verified 11/28/17 13:34) Latex, Natural Rubber Adverse Reaction (Verified 11/28/17 13:34) Home Medications: Ambulatory Orders Hydrocodone/Acetaminophen [Plano 10-325 Tablet] 1 each PO Q8HR #3 tablet
--- NOTE | 2017-11-28 15:19 | CT ---
EXAM: CT BRAIN HISTORY: Head pain TECHNIQUE: CT brain without intravenous contrast. 5-mm axial sections with Reformations. COMPARISON: 02/01/2017 FINDINGS: Brain is unremarkable without evidence of hemorrhage or large vessel distribution recent ischemic in farction. There is no suggestion of acute hydrocephalus or subdural fluid collection. No mass or ma ss effect. Cranium has no acute finding. Mastoid processes are aerated. The visualized paranasal sinuses are clear. IMPRESSION: No acute intracranial process.
== END 2017-11-28 15:38 | disposition home or self-care (01) ==
LOC: ED 13:26
DX: G43.909 Migraine, unspecified, not intractable, without status migrainosus (principal); F17.210 Nicotine dependence, cigarettes, uncomplicated
CPT/HCPCS: 36415; 80053; 85025; 96372; 99283

== ENCOUNTER 2018-04-30 15:31 | Outpatient (CLI) | payer OTHER | END 2018-04-30 15:32 | disposition home or self-care (01) | LOC: RHC-LAB 15:31 | PROVIDERS: ATTEND Nurse Practitioner Family | DX: I10 Essential (primary) hypertension (principal); Z87.891 Personal history of nicotine dependence | CPT/HCPCS: 36415; 80053; 80061; 84443; 85025 ==

== ENCOUNTER 2021-11-21 08:11 | Inpatient (IN) ==
[2021-11-21] MEDS ORDERED: URO-JET MUCOUSMEMB STA (08:13)
[2021-11-21] MEDS ORDERED: SODIUM CHLORIDE 1,000 ML IV STA (08:13)
--- NOTE | 2021-11-21 08:34 | ED.PDOC ---
General ED Provider: Dr. GUERA THAYER Chief Complaint: Suicide Attempt Overdose Stated Complaint: i couldnt sleep and i took some meds Time Seen by Provider: 11/21/21 08:13 Mode of Arrival: Ambulance Information Source: EMT Exam Limitations: Altered mental status Primary Care Provider: GUERA THAYER Nursing and Triage Documentation Reviewed and Agree: Yes Does patient meet sepsis criteria?: No System Inflammatory Response Syndrome: Not Applicable Sepsis Protocol: For patient's 13 years and over: Temp is 96.8 and below OR 101 and greater Pulse >90 BPM Resp >20/minute Acutely Altered Mental Status Are patient's symptoms suggestive of a new infection, such as: -Pneumonia -Skin, Soft Tissue -Endocarditis -UTI -Bone, Joint Infection -Implantable Device -Acute Abdominal Infection -Wound Infection -Meningitis -Blood Stream Catheter Infection -Unknown Miscellaneous Complaint Exam Complex/Multi-System Complaint/Exam Onset/Duration: this am Symptoms Are: Still present Episodes Lasting: Minutes Initial Severity: Mild Current Severity: Moderate Location of Pain: no pain Associated Signs and Symptoms: Reports Decreased responsiveness, Weakness, Nausea and Vomiting Recent Echo/LV Function: No Respiratory Distress: None JVD Present: No Tachypnea Present: No Stridor Present: No Abdominal Findings: Present Normal findings Glascow Coma Scale (see protocol): 15 Meningeal Signs Positive: No Focal Weakness: Present None Focal Sensory Loss: Present None Gait: Normal Gag Reflex Present: Yes Babinski Sign: Negative Right and Negative Left Skin Findings: Present Normal findings Joint Swelling Present: No In-Dwelling Device Present: No Quality Indicator For Non-Traumatic Chest Pain/Syncope: EKG Performed Review of Systems Review Of Systems Constitutional: Reports Weakness Eyes: Reports No symptoms Ears, Nose, Mouth, Throat: Reports No symptoms Respiratory: Reports No symptoms Cardiac: Reports No symptoms GI: Reports Nausea and Vomiting : Reports No symptoms Musculoskeletal: Reports No symptoms Skin: Reports No symptoms Neurological: Reports No symptoms Endocrine: Reports No symptoms Hematologic/Lymphatic: Reports No symptoms All Other Systems: Reviewed and Negative FOR[facility]LY [facility] Medical History Anxiety Depression Hx of migraines Hypertension Tachycardia Tobacco use Family History Mother No problems noted. FATHER Type 1 diabetes mellitus Other Abdominal aneurysm Social History Smoking and tobacco status: Current every day smoker Tobacco: How many years used: 10 Alcohol intake: never Substance use type: does not use Special darlene needs: No Caregiver/support person: Yes Lives independently: Yes Highest education level completed: high school graduate Current occupational status: disabled Current occupational exposures/hazards: No History of recent travel: No Current gender identity: female Surgical History History of tubal ligation Status post endovenous radiofrequency ablation (RFA) of saphenous vein Female Reproductive History Menstrual Hx Hysterectomy: No Hx Tubal Ligation: Yes (at 31 y/o) Physical Exam Physical Exam Appearance: Reports Ill-appearing Ill-appearing: Mild Pain Distress: None Eyes: Reports PENNY and EOMI ENT: Reports Ears normal and Nose normal Neck: Supple Respiratory: Reports Airway patent, Breath sounds clear and Breath sounds equal Cardiovascular: Reports RRR, Pulses normal, No rub and No murmur GI/: Reports Soft, Nontender, No masses and Bowel sounds normal Musculoskeletal: Reports Normal strength, ROM intact, No edema and No calf t enderness Skin: Reports Warm, Dry and Normal color Neurological: Reports Sensation intact, Motor intact, Reflexes intact, Cranial nerves intact and Oriented Psychiatric: Reports Affect appropriate and Mood appropriate Interpretation Radiology Interpretation Radiology Interpretation By: Radiologist Radiology Results: Negative Exam Interpreted: Portable CXR and CT Scan EKG Interpretation Time of EKG #1: 08:42 Rate: Normal Rhythm: Sinus Ectopy: None ST Segment: Normal Interpretation: nsr Physician Notification Case Discussed Physician Notified: spoke to toxicology fellow dr [place] Time of Notification: 09:53 Physician Notified: dr grove at [place] in [place] has graciously accepted Time of Notification: 11:04 Critical Care Note Critical Care Note Total Critical Care Time (mins): 60 Course Course Hematology/Chemistry: 11/21/21 08:34 11/21/21 08:34 Orders, Labs, Meds: Lab Review 11/21/21 11/21/21 11/21/21 08:27 08:30 08:30 WBC RBC Hgb Hct MCV MCH MCHC RDW Coeff of Michael Plt Count Immature Gran % (Auto) Neut % (Auto) Lymph % (Auto) [place] % (Auto) Eos % (Auto) Baso % (Auto) Neut # (Auto) Lymph # (Auto) [place] # (Auto) Eos # (Auto) Baso # (Auto) Immature Gran # (Auto) PT INR Puncture Site Lbrach Base Excess -8.3 L O2 Saturation 92.2 L ABG pH 7.29 L* ABG pCO2 38.0 ABG pO2 72.0 L ABG HCO3 18.3 L ABG Total CO2 19.5 Hemoglobin 2.9 H Oxyhemoglobin 88.8 L Carboxyhemoglobin 2.3 H Total Hemoglobin 15.1 FiO2 % 21.0 Sodium Potassium Chloride Carbon Dioxide Anion Gap BUN Creatinine Estimated GFR (MDRD) BUN/Creatinine Ratio Glucose Lactic Acid Calcium Magnesium Total Bilirubin AST ALT Alkaline Phosphatase Total Creatine Kinase CK-MB (CK-2) CK-MB (CK-2) % Troponin I Total Protein Albumin Globulin Albumin/Globulin Ratio Urine Color Yellow Urine Clarity Clear Urine pH 5.5 Ur Specific [place] 1.015 Urine Protein Negative Urine Glucose (UA) Negative Urine Ketones Negative Urine Blood Negative Urine Nitrite Negative Urine Bilirubin Negative Urine Urobilinogen 0.2 Ur Leukocyte Esterase Negative Salicylate Level mg/dL Urine Opiates Screen Negative Ur Oxycodone Screen Negative Urine Methadone Screen Negative Ur Propoxyphene Screen Negative Acetaminophen Ur Barbiturates Screen Negative U Tricyclic Antidepress Positive H Ur Phencyclidine Scrn Negative Ur Amphetamine Screen Negative U Methamphetamines Scrn Negative U Benzodiazepines Scrn Positive H Urine Cocaine Screen Negative U Cannabinoids Screen Positive H Plasma/Serum Alcohol SARS CoV-2 RNA Rapid DEONTE 11/21/21 11/21/21 11/21/21 08:34 08:34 08:34 WBC 16.29 H RBC 4.82 Hgb 14.8 Hct 44.2 MCV 91.7 MCH 30.7 MCHC 33.5 RDW Coeff of Michael 13.1 Plt Count 201 Immature Gran % (Auto) 0.8 Neut % (Auto) 87.5 H Lymph % (Auto) 6.4 L [place] % (Auto) 5.1 Eos % (Auto) 0.1 Baso % (Auto) 0.1 Neut # (Auto) 14.3 H Lymph # (Auto) 1.0 [place] # (Auto) 0.8 Eos # (Auto) 0.0 Baso # (Auto) 0.0 Immature Gran # (Auto) 0.1 PT INR Puncture Site Base Excess O2 Saturation ABG pH ABG pCO2 ABG pO2 ABG HCO3 ABG Total CO2 Hemoglobin Oxyhemoglobin Carboxyhemoglobin Total Hemoglobin FiO2 % Sodium 138.2 Potassium 2.81 L Chloride 103.2 Carbon Dioxide 15.4 L Anion Gap 22.41 BUN 16.9 Creatinine 1.28 Estimated GFR (MDRD) 44.00 BUN/Creatinine Ratio 13.20 Glucose 86.4 Lactic Acid Calcium 9.61 Magnesium 1.62 Total Bilirubin 1.76 H AST 230.5 H ALT 270.1 H Alkaline Phosphatase 118.9 Total Creatine Kinase CK-MB (CK-2) CK-MB (CK-2) % Troponin I Total Protein 7.61 Albumin 4.21 Globulin 3.40 Albumin/Globulin Ratio 1.23 Urine Color Urine Clarity Urine pH Ur Specific [place] Urine Protein Urine Glucose (UA) Urine Ketones Urine Blood Urine Nitrite Urine Bilirubin Urine Urobilinogen Ur Leukocyte Esterase Salicylate Level mg/dL < 1.00 Urine Opiates Screen Ur Oxycodone Screen Urine Methadone Screen Ur Propoxyphene Screen Acetaminophen 143.9 H* Ur Barbiturates Screen U Tricyclic Antidepress Ur Phencyclidine Scrn Ur Amphetamine Screen U Methamphetamines Scrn U Benzodiazepines Scrn Urine Cocaine Screen U Cannabinoids Screen Plasma/Serum Alcohol < 10.0 SARS CoV-2 RNA Rapid DEONTE 11/21/21 11/21/21 11/21/21 08:34 08:34 08:44 WBC RBC Hgb Hct MCV MCH MCHC RDW Coeff of Michael Plt Count Immature Gran % (Auto) Neut % (Auto) Lymph % (Auto) [place] % (Auto) Eos % (Auto) Baso % (Auto) Neut # (Auto) Lymph # (Auto) [place] # (Auto) Eos # (Auto) Baso # (Auto) Immature Gran # (Auto) PT 12.2 H INR 1.18 Puncture Site Base Excess O2 Saturation ABG pH ABG pCO2 ABG pO2 ABG HCO3 ABG Total CO2 Hemoglobin Oxyhemoglobin Carboxyhemoglobin Total Hemoglobin FiO2 % Sodium Potassium Chloride Carbon Dioxide Anion Gap BUN Creatinine Estimated GFR (MDRD) BUN/Creatinine Ratio Glucose Lactic Acid 4.74 H Calcium Magnesium Total Bilirubin AST ALT Alkaline Phosphatase Total Creatine Kinase CK-MB (CK-2) CK-MB (CK-2) % Troponin I < 0.012 Total Protein Albumin Globulin Albumin/Globulin Ratio Urine Color Urine Clarity Urine pH Ur Specific [place] Urine Protein Urine Glucose (UA) Urine Ketones Urine Blood Urine Nitrite Urine Bilirubin Urine Urobilinogen Ur Leukocyte Esterase Salicylate Level mg/dL Urine Opiates Screen Ur Oxycodone Screen Urine Methadone Screen Ur Propoxyphene Screen Acetaminophen Ur Barbiturates Screen U Tricyclic Antidepress Ur Phencyclidine Scrn Ur Amphetamine Screen U Methamphetamines Scrn U Benzodiazepines Scrn Urine Cocaine Screen U Cannabinoids Screen Plasma/Serum Alcohol SARS CoV-2 RNA Rapid DEONTE 11/21/21 11/21/21 08:44 09:05 WBC RBC Hgb Hct MCV MCH MCHC RDW Coeff of Michael Plt Count Immature Gran % (Auto) Neut % (Auto) Lymph % (Auto) [place] % (Auto) Eos % (Auto) Baso % (Auto) Neut # (Auto) Lymph # (Auto) [place] # (Auto) Eos # (Auto) Baso # (Auto) Immature Gran # (Auto) PT INR Puncture Site Base Excess O2 Saturation ABG pH ABG pCO2 ABG pO2 ABG HCO3 ABG Total CO2 Hemoglobin Oxyhemoglobin Carboxyhemoglobin Total Hemoglobin FiO2 % Sodium Potassium Chloride Carbon Dioxide Anion Gap BUN Creatinine Estimated GFR (MDRD) BUN/Creatinine Ratio Glucose Lactic Acid Calcium Magnesium Total Bilirubin AST ALT Alkaline Phosphatase Total Creatine Kinase 295.1 H CK-MB (CK-2) 4.070 H CK-MB (CK-2) % 1.3700 Troponin I Total Protein Albumin Globulin Albumin/Globulin Ratio Urine Color Urine Clarity Urine pH Ur Specific [place] Urine Protein Urine Glucose (UA) Urine Ketones Urine Blood Urine Nitrite Urine Bilirubin Urine Urobilinogen Ur Leukocyte Esterase Salicylate Level mg/dL Urine Opiates Screen Ur Oxycodone Screen Urine Methadone Screen Ur Propoxyphene Screen Acetaminophen Ur Barbiturates Screen U Tricyclic Antidepress Ur Phencyclidine Scrn Ur Amphetamine Screen U Methamphetamines Scrn U Benzodiazepines Scrn Urine Cocaine Screen U Cannabinoids Screen Plasma/Serum Alcohol SARS CoV-2 RNA Rapid DEONTE Negative Orders Category Date Time Status ABG DRAW REQUEST Stat CARDIO 11/21/21 08:13 Completed EKG-(ED ONLY) Stat CARDIO 11/21/21 08:13 Completed ED APPLY O2 .ONCE EMERGENCY 11/21/21 08:13 Active ED GREENS PLANTER APPLIED .ONCE EMERGENCY 11/21/21 08:13 Active ED CATHETER INSERTION AND CARE .ONCE EMERGENCY 11/21/21 08:13 Active ED IV/MEDIPORT/POWERPORT .ONCE EMERGENCY 11/21/21 08:13 Active Poison Control [ED POISON CONTROL CONTACTED] .ONCE EMERGENCY 11/21/21 08:16 Active ABG COOX Stat LAB 11/21/21 08:27 Completed ASPIRIN LEVEL [SALICYLATE] Stat LAB 11/21/21 08:34 Completed BLOOD CULTURE (ED ONLY) Stat LAB 11/21/21 08:34 Received CBC W/ AUTO DIFF Stat LAB 11/21/21 08:34 Completed COMPREHENSIVE METABOLIC PANEL Stat LAB 11/21/21 08:34 Completed CREATINE KINASE Stat LAB 11/21/21 08:44 Completed DRUG SCREEN (RAPID FOR ED) [DRUG SCREEN, URINE, RAPID] LAB 11/21/21 08:30 Completed Stat ETOH LEVEL [BLOOD ALCOHOL] Stat LAB 11/21/21 08:34 Completed LACTIC ACID Stat LAB 11/21/21 08:34 Completed MAGNESIUM Stat LAB 11/21/21 08:34 Completed PT WITH INR Stat LAB 11/21/21 08:44 Completed SARS COV-2 RNA RAPID DEONTE Stat LAB 11/21/21 09:05 Completed TROPONIN I Stat LAB 11/21/21 08:34 Completed TYLENOL LEVEL [ACETAMINOPHEN] Stat LAB 11/21/21 08:34 Completed URINALYSIS C & S IF INDICATED Stat LAB 11/21/21 08:30 Completed 0.9 % Sodium Chloride [Saline Flush] MEDS 11/21/21 08:13 Active 1 syr IVF PRN PRN Acetylcysteine [Acetadote] 13,700 mg MEDS 11/21/21 09:22 Discontinued Dextrose 5 %-Water [Dextrose 5%-Water IV Soln] 100 ml IV ONCE Acetylcysteine [Acetadote] 13,700 mg MEDS 11/21/21 10:00 Discontinued Dextrose 5 %-Water [Dextrose 5%-Water IV Soln] 200 ml IV ONCE Acetylcysteine [Acetadote] 4,600 mg MEDS 11/21/21 11:10 Active Dextrose 5 %-Water [Dextrose 5%-Water IV Soln] 500 ml IV ONCE Lidocaine (Uro-Jet) [Uro-Jet] MEDS 11/21/21 08:13 Discontinued 10 ml [id number] ONCE STA Potassium Chloride [Potassium Chloride 10 Meq/100 ml MEDS 11/21/21 09:04 Discontinued Premix] 10 meq in 100 ml IV ONCE Sodium Chloride 0.9% [Sodium Chloride] 1,000 ml MEDS 11/21/21 08:13 Active IV 125 mls/hr CT HEAD W/O CONTRAST Stat RADS 11/21/21 08:13 Completed CXR [CHEST, 1V AP ONLY] Stat RADS 11/21/21 08:13 Completed KUB [ABDOMEN 1 VIEW] Stat RADS 11/21/21 08:13 Completed Medications Generic Name Dose Route Start Last Admin Trade Name Freq PRN Reason Stop Dose Admin Sodium Chloride 1,000 mls @ 125 mls/hr 11/21/21 08:13 11/21/21 08:34 Sodium Chloride IV 11/21/21 16:12 125 mls/hr .Q8H STA Administration Acetylcysteine 4,600 mg/ 523 mls @ 130.75 mls/hr 11/21/21 11:10 Dextrose IV 11/21/21 11:11 ONCE ONE Sodium Chloride 1 syr 11/21/21 08:13 11/21/21 09:25 0.9% Sodium Chloride 10 Ml Disp.Syrin IVF 1 syr PRN PRN Administration To flush IV Discontinued Medications Generic Name Dose Route Start Last Admin Trade Name Freq PRN Reason Stop Dose Admin Potassium Chloride 10 meq in 100 mls @ 100 mls/hr 11/21/21 09:04 11/21/21 09 :18 Potassium Chloride 10 Meq/100 Ml Premix IV 11/21/21 10:03 100 mls/hr ONCE STA Administration Acetylcysteine 13,700 mg/ 168.5 mls @ 168.5 mls/hr 11/21/21 09:22 Dextrose IV 11/21/21 09:23 ONCE ONE Acetylcysteine 13,700 mg/ 268.5 mls @ 268.5 mls/hr 11/21/21 10:00 11/21/21 10:03 Dextrose IV 11/21/21 10:59 268.5 mls/hr ONCE ONE Administration Lidocaine HCl 10 ml 11/21/21 08:13 11/21/21 08:35 Lidocaine 10 Ml Jel.Pf.Paula (Urojet) MUCOUSMEMB 11/21/21 08:14 Not Given ONCE STA Vital Signs: Temp Pulse Resp BP Pulse Ox 11/21/21 08:12 97.2 F L 101 H 14 96/60 97 Discharge Plan Discharge Patient Disposition: TSF SHORT-TRM HOSP Discharge Problem: Metabolic acidosis, Overdose by acetaminophen, Acute hypokalemia Prescriptions: No Action venlafaxine [Effexor XR] 150 mg capsule,extended release 24hr 150 mg PO DAILY clonazepam [Klonopin] 1 mg tablet 1 mg PO BID hydroxyzine HCl 25 mg tablet 25 mg PO QHS cyclobenzaprine 10 mg tablet 10 mg PO BID PRN (Reason: muscle spasm) 90 Days Qty: 180 1RF losartan-hydrochlorothiazide 50-12.5 mg tablet 1 tab PO QDAY Qty: 90 1RF sumatriptan succinate 50 mg tablet See Rx Instructions .ROUTE .COMPLEX Qty: 27 1RF Dose Instruction: TAKE ONE TABLET AT ONSET MAY REPEAT IN 2HRS NEEDED (MAX OF4 TABS PER DAY) GENERIC FOR IMITREX (MUST LAST 30 DAYS0 Rx Instructions: TAKE ONE TABLET AT ONSET MAY REPEAT IN 2HRS NEEDED (MAX OF4 TABS PER DAY) GENERIC FOR IMITREX (MUST LAST 30 DAYS0 Did you review [place] [employer]ER?: Not Applicable ED Provider: GUERA SOLOMON Condition: Fair Physician Progress Note: []
[2021-11-21 08:44] LABS: ABG O2 HGB 88.8 % (95-100); BEecf -8.3 (-2.0-3.0); COHb 2.3 (0.5-1.5); HCO3 18.3 (21-28); MetHb 2.9 (0-1.5); TCO2 19.5 (19-24); sO2 92.2 % (94-98); tHb 15.1 g/dl (11.7-17.4)
[2021-11-21 08:46] LABS: ABG PH 7.29 (7.35-7.45)
[2021-11-21 08:47] LABS: BASOPHILS % (AUTO) 0.1 % (0.0-3.0); EOSINOPHILS % (AUTO) 0.1 % (0.0-7.0); HEMATOCRIT 44.2 % (37.0-47.0); HEMOGLOBIN 14.8 g/dl (12.0-16.0); IMMATURE GRANULOCYTE # (AUTO) 0.1 (0.0-1.0); IMMATURE GRANULOCYTE % (AUTO) 0.8 % (0.0-5.0); LYMPHOCYTES % (AUTO) 6.4 (10.0-50.0); MEAN CORPUSCULAR HEMOGLOBIN 30.7 pg (27.0-31.0); MEAN CORPUSCULAR HGB CONC 33.5 (31.8-35.4); MEAN CORPUSCULAR VOLUME 91.7 fl (81.0-99.0); MONOCYTES # (AUTO) 0.8 K/uL (0.4-2.0); MONOCYTES % (AUTO) 5.1 (0-10); NEUTROPHILS # (AUTO) 14.3 K/ul (2.0-6.9); NEUTROPHILS % (AUTO) 87.5 % (42.2-75.2); PLATELET COUNT 201 10^3/uL (140-440); RDW COEFFICIENT OF VARIATION 13.1 % (11.6-14.8); RED BLOOD COUNT 4.82 10^6/ul (4.20-5.40); WHITE BLOOD COUNT 16.29 K/ul (4.6-10.2)
[2021-11-21 08:50] LABS: BILIRUBIN,URINE Negative (NEGATIVE); CLARITY,URINE Clear (CLEAR); COLOR,URINE Yellow (YELLOW); GLUCOSE, URINE (UA) Negative (NEGATIVE); KETONES,URINE Negative (NEGATIVE); LEUKOCYTE ESTERASE ,URINE Negative (NEGATIVE); NITRITE,URINE Negative (NEGATIVE); PH,URINE 5.5 (5-9); PROTEIN,URINE Negative (NEGATIVE); URINE, BLOOD Negative (NEGATIVE); UROBILINOGEN,URINE 0.2 (0.2)
[2021-11-21 09:00] LABS: MAGNESIUM 1.62 mg/dL (1.6-2.3)
[2021-11-21 09:02] LABS: ALANINE AMINOTRANSFERASE 270.1 U/L (0-35); ALBUMIN 4.21 g/dL (3.5-5.0); ALKALINE PHOSPHATASE 118.9 U/L (38-126); ASPARTATE AMINO TRANSFERASE 230.5 U/L (14-36); BILIRUBIN,TOTAL 1.76 mg/dL (0.2-1.3); BLOOD UREA NITROGEN 16.9 mg/dL (7-17); CALCIUM 9.61 mg/dL (8.4-10.2); CARBON DIOXIDE 15.4 mmol/L (22-30.0); CHLORIDE 103.2 mmol/L (98-107); CREATININE 1.28 mg/dL (0.60-1.30); GLUCOSE 86.4 mg/dL (74-106); POTASSIUM 2.81 mmol/L (3.5-5.1); SODIUM 138.2 mmol/L (134.5-145); TOTAL PROTEIN 7.61 g/dL (6.3-8.2)
[2021-11-21] MEDS ORDERED: POTASSIUM CHLORIDE 10 MEQ/100 ML PREMIX 10 MEQ/100 ML BAG IV STA (09:04)
[2021-11-21 09:07] LABS: BLOOD ALCOHOL < 10.0 mg/dL (0.0-50.0); SALICYLATE < 1.00 mg/dL (0-20.0)
[2021-11-21 09:08] LABS: ACETAMINOPHEN 143.9 ug/ml (10-30)
[2021-11-21 09:10] LABS: AMPHETAMINE SCREEN,URINE NEGATIVE (NEGATIVE); BARBITURATE SCREEN,URINE NEGATIVE (NEGATIVE); BENZODIAZEPINES SCREEN,URINE POSITIVE (NEGATIVE); CANNABINOID SCREEN,URINE POSITIVE (NEGATIVE); COCAIN SCREEN,URINE NEGATIVE (NEGATIVE); METHADONE URINE SCREEN NEGATIVE (NEGATIVE); METHAMPHETAMINES SCREEN,URINE NEGATIVE (NEGATIVE); OPIATE SCREEN,URINE NEGATIVE (NEGATIVE); OXYCODONE URINE SCREEN NEGATIVE (NEGATIVE); PHENCYCLIDINE SCREEN,URINE NEGATIVE (NEGATIVE); PROPOXYPHENE URINE SCREEN NEGATIVE (NEGATIVE); TRICYCLIC ANTIDEPRESSANTS URIN POSITIVE (NEGATIVE)
--- NOTE | 2021-11-21 09:11 | CT ---
EXAM: CT head without contrast DATE: 11/21/2021 COMPARISON: 11/28/2017 HISTORY: Mental status change TECHNIQUE: A helical scan of the brain was performed without contrast. FINDINGS: The calvarium is intact.The paranasal sinuses and mastoid air cells are clear. The brainstem and cerebellum are within normal limits. No abnormal intra or extra-axial fluid, mass or mass effect is present. There is no midline shift or hydrocephalus. No large vessel infarct or h emorrhage is observed. The thomas-white interface is maintained. IMPRESSION: No acute intracranial findings. All CT scans are performed using dose optimization techniques as appropriate to the performed exam an d include at least one of the following: Automated exposure control, adjustment of the mA and/or kV according t o size, and the use of iterative reconstruction technique.
--- NOTE | 2021-11-21 09:11 | DI ---
Exam: Single view chest Xray. Date: 11/21/2021 Comparison: 12/21/2016 History: Overdose. Findings: No acute osseous abnormalities are seen. The lungs are clear. The cardiac silhouette and pulmonary vasculature are within normal limits. Impresson: No acute intrathoracic findings.
--- NOTE | 2021-11-21 09:12 | DI ---
Exam: Single view abdomen. Date: 11/21/2021. Comparison: None. HISTORY: Overdose. FINDINGS: No free air seen under the diaphragm. The lumbar spine and bony pelvis are within normal limits. Gas is scattered throughout nondistended loops of small bowel and colon. No suspicious mass es or calcifications. A catheter is present overlying the bladder. Impression: Nonobstructive bowel gas pattern.
[2021-11-21] MEDS ORDERED: WATER IV ONE ×5 (09:22→12:58)
[2021-11-21] MEDS ORDERED: ACETADOTE IV ONE ×5 (09:22→12:58)
[2021-11-21] MEDS ORDERED: DEXTROSE 5% IV ONE ×5 (09:22→12:58)
[2021-11-21 09:27] LABS: PROTHROMBIN TIME 12.2 SEC (9.3-11.0)
[2021-11-21 09:33] LABS: CREATINE KINASE 295.1 U/L (30-135)
[2021-11-21 09:51] LABS: CREATINE KINASE MB 4.07 ng/ml (0.0-2.38)
[2021-11-21] MEDS ORDERED: MAGNESIUM SULFATE 1 GM/100 ML D5W 2 GM/200 ML BAG IV STA (11:30)
[2021-11-21 14:23] LABS: PROTHROMBIN TIME 15.9 SEC (9.3-11.0)
[2021-11-21 14:25] LABS: ALANINE AMINOTRANSFERASE 352.1 U/L (0-35); ALBUMIN 4.16 g/dL (3.5-5.0); ASPARTATE AMINO TRANSFERASE 260.1 U/L (14-36); BILIRUBIN,TOTAL 1.9 mg/dL (0.2-1.3); BLOOD UREA NITROGEN 15.5 mg/dL (7-17); CALCIUM 9.29 mg/dL (8.4-10.2); CARBON DIOXIDE 19.4 mmol/L (22-30.0); CHLORIDE 98.7 mmol/L (98-107); CREATININE 1.04 mg/dL (0.60-1.30); GLUCOSE 149.5 mg/dL (74-106); POTASSIUM 3.03 mmol/L (3.5-5.1); SODIUM 138.2 mmol/L (134.5-145); TOTAL PROTEIN 7.53 g/dL (6.3-8.2)
[2021-11-21 15:01] LABS: ALKALINE PHOSPHATASE 21.8 U/L (38-126)
[2021-11-21 15:12] LABS: ACETAMINOPHEN 98.7 ug/ml (10-30)
[2021-11-21 15:29] VITALS: BMI 30.4
--- NOTE | 2021-11-21 15:30 | PCM ---
Chief Complaint Chief Complaint: i dont want to live History of Present Illness History of Present Illness: This is a 51 yr old lady with hx of depression and previous suicidal attempts according to her family. They discovered her this am with decreased responsive ness and evidence of overdose per the daughters hx. She notified ems and was brought to this ed. poison control and mental health were notified. Review of Systems Constitutional: Reports Weakness, Fatigue and Loss of appetite Eyes: Reports No symptoms Ears: Reports No symptoms Nose: Reports No symptoms Throat: Reports No symptoms Mouth: Reports No symptoms Respiratory: Reports No symptoms Cardiovascular: Reports No symptoms Gastrointestinal: Reports Nausea and Vomiting Genitourinary: Reports No symptoms Neurological: Reports No symptoms Musculoskeletal: Reports No symptoms Skin: Reports No symptoms Immunology: Reports No symptoms Hematology: Reports No symptoms Endocrine: Reports No symptoms Psychiatric: Reports Depression, Anxiety and Hopelessness Habits: Reports Other Allergies Allergies Allergy/AdvReac Type Severity Reaction Status Date / Time hydrocodone [From Lortab] AdvReac Mild "loopy" Verified 11/21/21 15:19 adhesive tape AdvReac Unknown Unknown Verified 11/21/21 15:19 PFSH Medical History Anxiety Depression Hx of migraines Hypertension Tachycardia Tobacco use Surgical History History of tubal ligation Status post endovenous radiofrequency ablation (RFA) of saphenous vein Family History Mother No problems noted. FATHER Type 1 diabetes mellitus Other Abdominal aneurysm Social History Smoking and tobacco status: Current every day smoker Tobacco type: cigarettes Smoking packs per day: 1 Smoking cigarettes per day: 20.0 Years smoked: 13 Smoking pack-years: 13.00 Tobacco: How many years used: 13 Alcohol intake: never Substance use type: does not use and marijuana Counseling given: Yes (smokes daily for pain control and anxiety) Special darlene needs: No Caregiver/support person: Yes Lives independently: Yes Highest education level completed: high school graduate Current occupational status: disabled Current occupational exposures/hazards: No History of recent travel: No Current gender identity: female Medications Medications: Medications Generic Name Dose Route Start Last Admin Trade Name Freq PRN Reason Stop Dose Admin Enoxaparin Sodium 40 mg 11/22/21 09:00 Enoxaparin Sodium 40 Mg/0.4 Ml Syr SUBCUT DAILY [facility] Potassium Chloride/Sodium Chloride 1,000 mls @ 75 mls/hr 11/21/21 14:00 Sodium Chloride 0.9%-Kcl 20 Meq IV .[id number] [facility] Sodium Chloride 1 syr 11/21/21 08:13 11/21/21 09:25 0.9% Sodium Chloride 10 Ml Disp.Syrin IVF 1 syr PRN PRN Administration To flush IV Body Composition Height: 5 ft 8 in Weight: 200 lb 9.93 oz Body Mass Index (BMI): 30.4 Vital Signs Temperature: 97.2 F Pulse Rate: 83 Respiratory Rate: 20 Blood Pressure: 138/100 O2 Sat by Pulse Oximetry: 99 Physical Examination Appearance: Reports Ill-appearing Ill-appearing: Mild Pain Distress: None Eyes: Reports PENNY, EOMI and Conjunctiva clear ENT: Reports Ears normal, Nose normal and Oropharynx normal Neck: Supple Respiratory: Reports Airway patent, Breath sounds clear, Breath sounds equal, Breath sounds diminished and Respirations nonlabored Cardiovascular: Reports RRR, Pulses normal and No rub GI/: Reports Soft, Nontender, No masses and Bowel sounds normal Musculoskeletal: Reports Normal strength, ROM intact, No edema and No calf tenderness Skin: Reports Warm, Dry and Normal color Neurological: Reports Sensation intact, Motor intact, Reflexes intact, Cranial nerves intact, Alert and Oriented Psychiatric: Reports Affect appropriate, Mood appropriate and Depressed Lab/Tests/Diagnostic Imaging Lab/Tests/Diagnostic Imaging: Lab Review 11/21/21 11/21/21 11/21/21 08:27 08:30 08:30 WBC RBC Hgb Hct MCV MCH MCHC RDW Coeff of Michael Plt Count Immature Gran % (Auto) Neut % (Auto) Lymph % (Auto) [place] % (Auto) Eos % (Auto) Baso % (Auto) Neut # (Auto) Lymph # (Auto) [place] # (Auto) Eos # (Auto) Baso # (Auto) Immature Gran # (Auto) PT INR Puncture Site Lbrach Base Excess -8.3 L O2 Saturation 92.2 L ABG pH 7.29 L* ABG pCO2 38.0 ABG pO2 72.0 L ABG HCO3 18.3 L ABG Total CO2 19.5 Hemoglobin 2.9 H Oxyhemoglobin 88.8 L Carboxyhemoglobin 2.3 H Total Hemoglobin 15.1 FiO2 % 21.0 Sodium Potassium Chloride Carbon Dioxide Anion Gap BUN Creatinine Estimated GFR (MDRD) BUN/Creatinine Ratio Glucose Lactic Acid Calcium Magnesium Total Bilirubin AST ALT Alkaline Phosphatase Total Creatine Kinase CK-MB (CK-2) CK-MB (CK-2) % Troponin I Total Protein Albumin Globulin Albumin/Globulin Ratio Urine Color Yellow Urine Clarity Clear Urine pH 5.5 Ur Specific Malone 1.015 Urine Protein Negative Urine Glucose (UA) Negative Urine Ketones Negative Urine Blood Negative Urine Nitrite Negative Urine Bilirubin Negative Urine Urobilinogen 0.2 Ur Leukocyte Esterase Negative Salicylate Level mg/dL Urine Opiates Screen Negative Ur Oxycodone Screen Negative Urine Methadone Screen Negative Ur Propoxyphene Screen Negative Acetaminophen Ur Barbiturates Screen Negative U Tricyclic Antidepress Positive H Ur Phencyclidine Scrn Negative Ur Amphetamine Screen Negative U Methamphetamines Scrn Negative U Benzodiazepines Scrn Positive H Urine Cocaine Screen Negative U Cannabinoids Screen Positive H Plasma/Serum Alcohol SARS CoV-2 RNA Rapid DEONTE 11/21/21 11/21/21 11/21/21 08:34 08:34 08:34 WBC 16.29 H RBC 4.82 Hgb 14.8 Hct 44.2 MCV 91.7 MCH 30.7 MCHC 33.5 RDW Coeff of Michael 13.1 Plt Count 201 Immature Gran % (Auto) 0.8 Neut % (Auto) 87.5 H Lymph % (Auto) 6.4 L [place]go % (Auto) 5.1 Eos % (Auto) 0.1 Baso % (Auto) 0.1 Neut # (Auto) 14.3 H Lymph # (Auto) 1.0 [place] # (Auto) 0.8 Eos # (Auto) 0.0 Baso # (Auto) 0.0 Immature Gran # (Auto) 0.1 PT INR Puncture Site Base Excess O2 Saturation ABG pH ABG pCO2 ABG pO2 ABG HCO3 ABG Total CO2 Hemoglobin Oxyhemoglobin Carboxyhemoglobin Total Hemoglobin FiO2 % Sodium 138.2 Potassium 2.81 L Chloride 103.2 Carbon Dioxide 15.4 L Anion Gap 22.41 BUN 16.9 Creatinine 1.28 Estimated GFR (MDRD) 44.00 BUN/Creatinine Ratio 13.20 Glucose 86.4 Lactic Acid Calcium 9.61 Magnesium 1.62 Total Bilirubin 1.76 H AST 230.5 H ALT 270.1 H Alkaline Phosphatase 118.9 Total Creatine Kinase CK-MB (CK-2) CK-MB (CK-2) % Troponin I Total Protein 7.61 Albumin 4.21 Globulin 3.40 Albumin/Globulin Ratio 1.23 Urine Color Urine Clarity Urine pH Ur Specific Malone Urine Protein Urine Glucose (UA) Urine Ketones Urine Blood Urine Nitrite Urine Bilirubin Urine Urobilinogen Ur Leukocyte Esterase Salicylate Level mg/dL < 1.00 Urine Opiates Screen Ur Oxycodone Screen Urine Methadone Screen Ur Propoxyphene Screen Acetaminophen 143.9 H* Ur Barbiturates Screen U Tricyclic Antidepress Ur Phencyclidine Scrn Ur Amphetamine Screen U Methamphetamines Scrn U Benzodiazepines Scrn Urine Cocaine Screen U Cannabinoids Screen Plasma/Serum Alcohol < 10.0 SARS CoV-2 RNA Rapid DEONTE 11/21/21 11/21/21 11/21/21 08:34 08:34 08:44 WBC RBC Hgb Hct MCV MCH MCHC RDW Coeff of Michael Plt Count Immature Gran % (Auto) Neut % (Auto) Lymph % (Auto) [place] % (Auto) Eos % (Auto) Baso % (Auto) Neut # (Auto) Lymph # (Auto) [place] # (Auto) Eos # (Auto) Baso # (Auto) Immature Gran # (Auto) PT 12.2 H INR 1.18 Puncture Site Base Excess O2 Saturation ABG pH ABG pCO2 ABG pO2 ABG HCO3 ABG Total CO2 Hemoglobin Oxyhemoglobin Carboxyhemoglobin Total Hemoglobin FiO2 % Sodium Potassium Chloride Carbon Dioxide Anion Gap BUN Creatinine Estimated GFR (MDRD) BUN/Creatinine Ratio Glucose Lactic Acid 4.74 H Calcium Magnesium Total Bilirubin AST ALT Alkaline Phosphatase Total Creatine Kinase CK-MB (CK-2) CK-MB (CK-2) % Troponin I < 0.012 Total Protein Albumin Globulin Albumin/Globulin Ratio Urine Color Urine Clarity Urine pH Ur Specific Malone Urine Protein Urine Glucose (UA) Urine Ketones Urine Blood Urine Nitrite Urine Bilirubin Urine Urobilinogen Ur Leukocyte Esterase Salicylate Level mg/dL Urine Opiates Screen Ur Oxycodone Screen Urine Methadone Screen Ur Propoxyphene Screen Acetaminophen Ur Barbiturates Screen U Tricyclic Antidepress Ur Phencyclidine Scrn Ur Amphetamine Screen U Methamphetamines Scrn U Benzodiazepines Scrn Urine Cocaine Screen U Cannabinoids Screen Plasma/Serum Alcohol SARS CoV-2 RNA Rapid DEONTE 11/21/21 11/21/21 11/21/21 08:44 09:05 14:11 WBC RBC Hgb Hct MCV MCH MCHC RDW Coeff of Michael Plt Count Immature Gran % (Auto) Neut % (Auto) Lymph % (Auto) [place] % (Auto) Eos % (Auto) Baso % (Auto) Neut # (Auto) Lymph # (Auto) [place] # (Auto) Eos # (Auto) Baso # (Auto) Immature Gran # (Auto) PT 15.9 H INR 1.56 Puncture Site Base Excess O2 Saturation ABG pH ABG pCO2 ABG pO2 ABG HCO3 ABG Total CO2 Hemoglobin Oxyhemoglobin Carboxyhemoglobin Total Hemoglobin FiO2 % Sodium Potassium Chloride Carbon Dioxide Anion Gap BUN Creatinine Estimated GFR (MDRD) BUN/Creatinine Ratio Glucose Lactic Acid Calcium Magnesium Total Bilirubin AST ALT Alkaline Phosphatase Total Creatine Kinase 295.1 H CK-MB (CK-2) 4.070 H CK-MB (CK-2) % 1.3700 Troponin I Total Protein Albumin Globulin Albumin/Globulin Ratio Urine Color Urine Clarity Urine pH Ur Specific Malone Urine Protein Urine Glucose (UA) Urine Ketones Urine Blood Urine Nitrite Urine Bilirubin Urine Urobilinogen Ur Leukocyte Esterase Salicylate Level mg/dL Urine Opiates Screen Ur Oxycodone Screen Urine Methadone Screen Ur Propoxyphene Screen Acetaminophen Ur Barbiturates Screen U Tricyclic Antidepress Ur Phencyclidine Scrn Ur Amphetamine Screen U Methamphetamines Scrn U Benzodiazepines Scrn Urine Cocaine Screen U Cannabinoids Screen Plasma/Serum Alcohol SARS CoV-2 RNA Rapid DEONTE Negative 11/21/21 14:11 WBC RBC Hgb Hct MCV MCH MCHC RDW Coeff of Michael Plt Count Immature Gran % (Auto) Neut % (Auto) Lymph % (Auto) [place] % (Auto) Eos % (Auto) Baso % (Auto) Neut # (Auto) Lymph # (Auto) [place] # (Auto) Eos # (Auto) Baso # (Auto) Immature Gran # (Auto) PT INR Puncture Site Base Excess O2 Saturation ABG pH ABG pCO2 ABG pO2 ABG HCO3 ABG Total CO2 Hemoglobin Oxyhemoglobin Carboxyhemoglobin Total Hemoglobin FiO2 % Sodium 138.2 Potassium 3.03 L Chloride 98.7 Carbon Dioxide 19.4 L Anion Gap 23.13 BUN 15.5 Creatinine 1.04 Estimated GFR (MDRD) 56.00 BUN/Creatinine Ratio 14.90 Glucose 149.5 H D Lactic Acid Calcium 9.29 Magnesium Total Bilirubin 1.90 H AST 260.1 H D ALT 352.1 H D Alkaline Phosphatase 21.8 L D Total Creatine Kinase CK-MB (CK-2) CK-MB (CK-2) % Troponin I Total Protein 7.53 Albumin 4.16 Globulin 3.37 Albumin/Globulin Ratio 1.23 Urine Color Urine Clarity Urine pH Ur Specific Malone Urine Protein Urine Glucose (UA) Urine Ketones Urine Blood Urine Nitrite Urine Bilirubin Urine Urobilinogen Ur Leukocyte Esterase Salicylate Level mg/dL Urine Opiates Screen Ur Oxycodone Screen Urine Methadone Screen Ur Propoxyphene Screen Acetaminophen 98.7 H* D Ur Barbiturates Screen U Tricyclic Antidepress Ur Phencyclidine Scrn Ur Amphetamine Screen U Methamphetamines Scrn U Benzodiazepines Scrn Urine Cocaine Screen U Cannabinoids Screen Plasma/Serum Alcohol SARS CoV-2 RNA Rapid DEONTE Orders Category Date Time Status ADMIT PATIENT INPATIENT .TO SCU (MONITORED BED) ADMISSION 11/21/21 13:37 Completed ABG DRAW REQUEST Stat CARDIO 11/21/21 08:13 Completed EKG-(ED ONLY) Stat CARDIO 11/21/21 08:13 Completed EKG-(IP & OP ONLY) DAILY CARDIO 11/22/21 06:00 Ordered EKG-(IP & OP ONLY) DAILY CARDIO 11/23/21 06:00 Ordered ACTIVITY .Up With Assistance CARE 11/21/21 13:38 Active Consult Pharmacist [PHARMACIST CONSULT] ONCE CARE 11/21/21 13:40 Active GIVE HS SNACK 2100 CARE 11/21/21 13:39 Active INTAKE & OUTPUT Q8HR CARE 11/21/21 13:38 Active IP: INSERT SALINE LOCK ONCE CARE 11/21/21 13:38 Active TELEMETRY MONITORING TELE CARE 11/21/21 13:37 Active TREATMENT ORDER:NURSING ONCE CARE 11/21/21 13:42 Active VITAL SIGNS Q8HR CARE 11/21/21 13:38 Active CLEAR LIQUID DIET DIETARY 11/21/21 Dinner Ordered HS SNACK DIETARY 11/21/21 Dinner Ordered ED APPLY O2 .ONCE EMERGENCY 11/21/21 08:13 Active ED URGENT CARE NURSE PRACTITIONER APPLIED .ONCE EMERGENCY 11/21/21 08:13 Active ED CATHETER INSERTION AND CARE .ONCE EMERGENCY 11/21/21 08:13 Active ED IV/MEDIPORT/POWERPORT .ONCE EMERGENCY 11/21/21 08:13 Active Mental Health Consult [ED MENTAL HEALTH CONSULT] .ONCE EMERGENCY 11/21/21 11:37 Active Poison Control [ED POISON CONTROL CONTACTED] .ONCE EMERGENCY 11/21/21 08:16 Active ABG COOX Stat LAB 11/21/21 08:27 Completed ASPIRIN LEVEL [SALICYLATE] Stat LAB 11/21/21 08:34 Completed BLOOD CULTURE (ED ONLY) Stat LAB 11/21/21 08:34 Received CBC W/ AUTO DIFF DAILY@0600 LAB 11/22/21 06:00 Ordered CBC W/ AUTO DIFF DAILY@0600 LAB 11/23/21 06:00 Ordered CBC W/ AUTO DIFF Stat LAB 11/21/21 08:34 Completed CMP [COMPREHENSIVE METABOLIC PANEL] Timed LAB 11/21/21 14:11 Completed COMPREHENSIVE METABOLIC PANEL DAILY@0600 LAB 11/22/21 06:00 Ordered COMPREHENSIVE METABOLIC PANEL DAILY@0600 LAB 11/23/21 06:00 Ordered COMPREHENSIVE METABOLIC PANEL Stat LAB 11/21/21 08:34 Completed CREATINE KINASE Stat LAB 11/21/21 08:44 Completed DRUG SCREEN (RAPID FOR ED) [DRUG SCREEN, URINE, RAPID] LAB 11/21/21 08:30 Completed Stat ETOH LEVEL [BLOOD ALCOHOL] Stat LAB 11/21/21 08:34 Completed LACTIC ACID Stat LAB 11/21/21 08:34 Completed MAGNESIUM Stat LAB 11/21/21 08:34 Completed PT WITH INR DAILY@0600 LAB 11/22/21 06:00 Ordered PT WITH INR DAILY@0600 LAB 11/23/21 06:00 Ordered PT WITH INR Stat LAB 11/21/21 08:44 Completed PT WITH INR Timed LAB 11/21/21 14:11 Completed SARS COV-2 RNA RAPID DEONTE Stat LAB 11/21/21 09:05 Completed TROPONIN I Stat LAB 11/21/21 08:34 Completed TYLENOL LEVEL [ACETAMINOPHEN] Stat LAB 11/21/21 08:34 Completed TYLENOL LEVEL [ACETAMINOPHEN] Timed LAB 11/21/21 14:11 Completed URINALYSIS C & S IF INDICATED Stat LAB 11/21/21 08:30 Completed 0.9 % Sodium Chloride [Saline Flush] MEDS 11/21/21 08:13 Active 1 syr IVF PRN PRN Acetylcysteine [Acetadote] 13,700 mg MEDS 11/21/21 09:22 Discontinued Dextrose 5 %-Water [Dextrose 5%-Water IV Soln] 100 ml IV ONCE Acetylcysteine [Acetadote] 13,700 mg MEDS 11/21/21 10:00 Discontinued Dextrose 5 %-Water [Dextrose 5%-Water IV Soln] 200 ml IV ONCE Acetylcysteine [Acetadote] 4,600 mg MEDS 11/21/21 11:10 Discontinued Dextrose 5 %-Water [Dextrose 5%-Water IV Soln] 500 ml IV ONCE Enoxaparin Sodium [Lovenox] MEDS 11/22/21 09:00 Active 40 mg SUBCUT DAILY Lidocaine (Uro-Jet) [Uro-Jet] MEDS 11/21/21 08:13 Discontinued 10 ml MUCOUSMEMB ONCE STA Magnesium Sulfate Bag [Magnesium Sulfate 1 gm/100 ml MEDS 11/21/21 11:30 Discontinued D5w] 2 gm in 200 ml IV ONCE Potassium Chloride [Potassium Chloride 10 Meq/100 ml MEDS 11/21/21 09:04 Discontinued Premix] 10 meq in 100 ml IV ONCE Potassium Chloride in 0.9%NaCl [Sodium Chloride 0.9%- MEDS 11/21/21 14:00 Active KCl 20 Meq] 1,000 ml IV 75 mls/hr Sodium Chloride 0.9% [Sodium Chloride] 1,000 ml MEDS 11/21/21 08:13 Discontinued IV 125 mls/hr RESUSCITATION STATUS Routine OTHERS 11/21/21 13:[address] HEAD W/O CONTRAST Stat RADS 11/21/21 08:13 Completed CXR [CHEST, 1V AP ONLY] Stat RADS 11/21/21 08:13 Completed KUB [ABDOMEN 1 VIEW] Stat RADS 11/21/21 08:13 Completed Medications Generic Name Dose Route Start Last Admin Trade Name Freq PRN Reason Stop Dose Admin Enoxaparin Sodium 40 mg 11/22/21 09:00 Enoxaparin Sodium 40 Mg/0.4 Ml Syr SUBCUT DAILY [facility] Potassium Chloride/Sodium Chloride 1,000 mls @ 75 mls/hr 11/21/21 14:00 Sodium Chloride 0.9%-Kcl 20 Meq IV .[id number] [facility] Sodium Chloride 1 syr 11/21/21 08:13 11/21/21 09:25 0.9% Sodium Chloride 10 Ml Disp.Syrin IVF 1 syr PRN PRN Administration To flush IV Discontinued Medications Generic Name Dose Route Start Last Admin Trade Name Freq PRN Reason Stop Dose Admin Sodium Chloride 1,000 mls @ 125 mls/hr 11/21/21 08:13 11/21/21 08:34 Sodium Chloride IV 11/21/21 16:12 125 mls/hr .Q8H STA Administration Potassium Chloride 10 meq in 100 mls @ 100 mls/hr 11/21/21 09:04 11/21/21 09:18 Potassium Chloride 10 Meq/100 Ml Premix IV 11/21/21 10:03 100 mls/hr ONCE STA Administration Acetylcysteine 13,700 mg/ 168.5 mls @ 168.5 mls/hr 11/21/21 09:22 11/21/21 11:34 Dextrose IV 11/21/21 09:23 Not Given ONCE ONE Acetylcysteine 13,700 mg/ 268.5 mls @ 268.5 mls/hr 11/21/21 10:00 11/21/21 10:03 Dextrose IV 11/21/21 10:59 268.5 mls/hr ONCE ONE Administration Acetylcysteine 4,600 mg/ 523 mls @ 130.75 mls/hr 11/21/21 11:10 11/21/21 11:11 Dextrose IV 11/21/21 11:11 130.75 mls/hr ONCE ONE Administration Magnesium Sulfate/Dextrose 2 gm in 200 mls @ 100 mls/hr 11/21/21 11:30 11/21/21 11:33 Magnesium Sulfate 1 Gm/100 Ml D5w IV 11/21/21 13:29 100 mls/hr ONCE STA Administration Lidocaine HCl 10 ml 11/21/21 08:13 11/21/21 08:35 Lidocaine 10 Ml Jel.Pf.Paula (Urojet) MUCOUSMEMB 11/21/21 08:14 Not Given ONCE STA Assessment (1) Metabolic acidosis: Status: Acute Code(s): E87.2 - Acidosis SNOMED Code(s): 11130830 (2) Overdose by acetaminophen: Status: Acute Code(s): T39.1X1A - Poisoning by 4-Aminophenol derivatives, accidental (unintentional), initial encounter SNOMED Code(s): 046813125 (3) Acute hypokalemia: Status: Acute Code(s): E87.6 - Hypokalemia SNOMED Code(s): 23064071 Assessment: she has refused transfer to outside hospital(we called multiple institutions and was finally accepted in [place] but the patient and family both declined tranfer). i made them aware of her possible poor prognosis and even by not transferring but they are insistent on staying here.now that she is more awake she has refused labs and iv treatments despite our pleading to proceed. Plan Plan: pharmacy has been consulted on dosing of acetyl cysteine and will try to monitor her labs if she will allow. initially her daughter has make her status DNR but as she is more awake this can be revisited with the patient. The family is aware she is refusing labs and treatment and they too are aware of possible poor prognosis. will pass the above info to the next hospitalist. She will be monitored on telemetry, dvt prophylaxis and hopefully she will allow labs and iv treatment of her problem. This is a difficult case and we have discussed with Bucky Johnson and also clinical nursing assistant(administration) has been notified of this unsual situation.
[2021-11-21] MEDS: SODIUM CHLORIDE 0.9%-KCL 20 MEQ 1,000 ML IV SCH ×2 (16:03→19:14)
[2021-11-21] MEDS ORDERED: IMITREX PO PRN (16:30)
[2021-11-21] MEDS: ZOFRAN 4 MG/2 ML IVP PRN (19:57)
[2021-11-22 05:00] LABS: BASOPHILS % (AUTO) 0.1 % (0.0-3.0); HEMATOCRIT 38.9 % (37.0-47.0); HEMOGLOBIN 13.3 g/dl (12.0-16.0); IMMATURE GRANULOCYTE # (AUTO) 0.1 (0.0-1.0); IMMATURE GRANULOCYTE % (AUTO) 0.5 % (0.0-5.0); LYMPHOCYTES # (AUTO) 1.1 K/uL (0.60-3.4); LYMPHOCYTES % (AUTO) 5.9 (10.0-50.0); MEAN CORPUSCULAR HEMOGLOBIN 30.9 pg (27.0-31.0); MEAN CORPUSCULAR HGB CONC 34.2 (31.8-35.4); MEAN CORPUSCULAR VOLUME 90.3 fl (81.0-99.0); MONOCYTES # (AUTO) 0.3 K/uL (0.4-2.0); MONOCYTES % (AUTO) 1.4 (0-10); NEUTROPHILS # (AUTO) 17.6 K/ul (2.0-6.9); NEUTROPHILS % (AUTO) 92.1 % (42.2-75.2); PLATELET COUNT 259 10^3/uL (140-440); RDW COEFFICIENT OF VARIATION 13.3 % (11.6-14.8); RED BLOOD COUNT 4.31 10^6/ul (4.20-5.40); WHITE BLOOD COUNT 19.05 K/ul (4.6-10.2)
[2021-11-22 05:11] LABS: PROTHROMBIN TIME 24.2 SEC (9.3-11.0)
[2021-11-22 05:13] LABS: ALBUMIN 3.7 g/dL (3.5-5.0); ALKALINE PHOSPHATASE 105.2 U/L (38-126); ASPARTATE AMINO TRANSFERASE 690.8 U/L (14-36); BILIRUBIN,TOTAL 4.04 mg/dL (0.2-1.3); BLOOD UREA NITROGEN 21.9 mg/dL (7-17); CALCIUM 8.9 mg/dL (8.4-10.2); CARBON DIOXIDE 19.7 mmol/L (22-30.0); CHLORIDE 103.4 mmol/L (98-107); CREATININE 1.6 mg/dL (0.60-1.30); GLUCOSE 53.1 mg/dL (74-106); POTASSIUM 2.99 mmol/L (3.5-5.1); SODIUM 139.3 mmol/L (134.5-145); TOTAL PROTEIN 7.02 g/dL (6.3-8.2)
[2021-11-22] MEDS: ZOFRAN 4 MG/2 ML IVP PRN (05:21)
[2021-11-22 05:22] LABS: ALANINE AMINOTRANSFERASE 897.1 U/L (0-35)
[2021-11-22] MEDS ORDERED: ACETADOTE IV ONE (08:41)
[2021-11-22] MEDS ORDERED: WATER IV ONE (08:41)
[2021-11-22] MEDS ORDERED: DEXTROSE 5% IV ONE (08:41)
--- NOTE | 2021-11-22 08:42 | PCM.PROG ---
Date Seen by Provider: 11/22/21 Time Seen by Provider: 08:05 Subjective: Patient has no emesis or diarrhea. No PO intake. UO has been low. Objective: Vitals: T=97.3 F, P=96, R=18, YF=604/64, SPO2=92 Patient lethargic and appears jaundiced. She mumbles when asked questions. No acute distress. HEENT: [] Sclera icteric. Oral mucosa dry. Neck: [] Lungs: [] Clear. Breath tones equal. CVS: [] RRR. No murmur or gallop. No peripheral edema. Abdomen: [] Soft, with mild RUQ tenderness. Extremities: [] Neurological: [] Skin: [] Lab/Tests/Diagnostic Imaging: [] (1) Metabolic acidosis: Status: Acute Code(s): E87.2 - Acidosis SNOMED Code(s): 41498727 (2) Overdose by acetaminophen: Status: Acute Code(s): T39.1X1A - Poisoning by 4-Aminophenol derivatives, accidental (unintentional), initial encounter SNOMED Code(s): 228053685 (3) Acute hypokalemia: Status: Acute Code(s): E87.6 - Hypokalemia SNOMED Code(s): 61317195 (4) Hypoglycemia: Status: Acute Code(s): E16.2 - Hypoglycemia, unspecified SNOMED Code(s): 268224492 (5) Acute liver failure: Status: Acute Code(s): K72.00 - Acute and subacute hepatic failure without coma SNOMED Code(s): 981999366 Plan: Increase IV fluids and change fluids to D5 NS with 40meq KCl/L. IV sodium bicarbonate. Replace potassium. Patient will need emergent transfer to a facility that can manage her acute liver failure and also potentially provide her a liver transplant if necessary.
[2021-11-22 09:01] LABS: ABG O2 HGB 90.5 % (95-100); ABG PH 7.33 (7.35-7.45); BEecf -6.9 (-2.0-3.0); COHb 2.1 (0.5-1.5); MetHb 2.9 (0-1.5); TCO2 20.1 (19-24); sO2 94.2 % (94-98); tHb 13.5 g/dl (11.7-17.4)
[2021-11-22] MEDS ORDERED: ZOFRAN 4 MG/2 ML IVP PRN (09:08)
[2021-11-22] MEDS: LOVENOX SUBCUT SCH (09:14)
[2021-11-22] MEDS: D5%-NS-KCL 40 MEQ/L IV SOL 1,000 ML IV SCH ×2 (10:01→18:09)
[2021-11-22] MEDS: SODIUM CHLORIDE 0.9%-KCL 20 MEQ 1,000 ML IV SCH (10:56)
--- NOTE | 2021-11-22 11:59 | PCM.PROG ---
Patient ingested an acetaminophen overdose in attempted suicide one day ago. She has prior suicide attempts. Patient now refuses medical therapy and has developed acute liver failure. She will if she does not receive medical therapy for the tylenol overdose. This was explained to the patient and she still refuses therapy. This clearly poses risk to her health and livlihood. Patient has been deemed incompetent to act in her best medical interest. She will be involuntarily transferred to another facility where she can receive the medical therapy that she needs in attempt to save her life.
[2021-11-22] MEDS ORDERED: PROTONIX IV IVP ONE (12:23)
[2021-11-22] MEDS: MORPHINE 4 MG/ML SYRINGE IVP PRN ×2 (13:07→13:12)
[2021-11-22 13:40] LABS: HEMATOCRIT 35.8 % (37.0-47.0); HEMOGLOBIN 12.1 g/dl (12.0-16.0); MEAN CORPUSCULAR HEMOGLOBIN 30.6 pg (27.0-31.0); MEAN CORPUSCULAR HGB CONC 33.8 (31.8-35.4); MEAN CORPUSCULAR VOLUME 90.6 fl (81.0-99.0); PLATELET COUNT 230 10^3/uL (140-440); RDW COEFFICIENT OF VARIATION 13.4 % (11.6-14.8); RED BLOOD COUNT 3.95 10^6/ul (4.20-5.40); WHITE BLOOD COUNT 15.73 K/ul (4.6-10.2)
--- NOTE | 2021-11-22 13:44 | RS.SLPCNOT ---
Speech Case Note Date of Note: 11/22/21 Title: Speech consult Note: At 11:30, CHANGEOVER OPERATOR briefly discussed with RN if the pt has needs for speech consult vs speech evaluation. RN politely requested for CHANGEOVER OPERATOR to return and check on pt later this date. Thank you for this consult.
[2021-11-22 13:49] LABS: ANISOCYTOSIS NOT PRESENT (NOT PRESENT)
[2021-11-22 13:52] LABS: ACETAMINOPHEN 35.8 ug/ml (10-30); ALBUMIN 3.23 g/dL (3.5-5.0); ALKALINE PHOSPHATASE 73.8 U/L (38-126); BILIRUBIN,TOTAL 3.16 mg/dL (0.2-1.3); BLOOD UREA NITROGEN 24.6 mg/dL (7-17); CALCIUM 7.99 mg/dL (8.4-10.2); CARBON DIOXIDE 20.5 mmol/L (22-30.0); CHLORIDE 102.6 mmol/L (98-107); CREATINE KINASE 132.9 U/L (30-135); CREATININE 1.87 mg/dL (0.60-1.30); GLUCOSE 188.6 mg/dL (74-106); POTASSIUM 3.04 mmol/L (3.5-5.1); SODIUM 135.6 mmol/L (134.5-145); TOTAL PROTEIN 6.25 g/dL (6.3-8.2)
[2021-11-22 14:32] LABS: PROTHROMBIN TIME 35.4 SEC (9.3-11.0)
[2021-11-22 15:19] LABS: ALANINE AMINOTRANSFERASE 1968.1 U/L (0-35)
[2021-11-22 17:49] LABS: ASPARTATE AMINO TRANSFERASE 1686.5 U/L (14-36)
[2021-11-22 17:50] LABS: CREATINE KINASE MB 4.96 ng/ml (0.0-2.38)
--- NOTE | 2021-11-22 19:09 | DI ---
EXAM: CHEST RADIOGRAPH TECHNIQUE: Single frontal chest radiograph. HISTORY: Cough and congestion. COMPARISON: 11/21/2021. FINDINGS: The lungs are clear. The heart size is normal. There is no pleural effusion. There is no pneumothorax. IMPRESSION: 1. Normal chest radiograph.
[2021-11-22] MEDS ORDERED: VITAMIN K SUBCUT STA (21:12)
[2021-11-23] MEDS: D5%-NS-KCL 40 MEQ/L IV SOL 1,000 ML IV SCH ×2 (01:03→10:39)
[2021-11-23 04:49] LABS: BASOPHILS % (AUTO) 0.1 % (0.0-3.0); HEMATOCRIT 38.5 % (37.0-47.0); HEMOGLOBIN 12.8 g/dl (12.0-16.0); IMMATURE GRANULOCYTE # (AUTO) 0.1 (0.0-1.0); IMMATURE GRANULOCYTE % (AUTO) 0.4 % (0.0-5.0); LYMPHOCYTES # (AUTO) 1.2 K/uL (0.60-3.4); LYMPHOCYTES % (AUTO) 7.1 (10.0-50.0); MEAN CORPUSCULAR HEMOGLOBIN 30.6 pg (27.0-31.0); MEAN CORPUSCULAR HGB CONC 33.2 (31.8-35.4); MEAN CORPUSCULAR VOLUME 92.1 fl (81.0-99.0); MONOCYTES # (AUTO) 0.1 K/uL (0.4-2.0); MONOCYTES % (AUTO) 0.6 (0-10); NEUTROPHILS # (AUTO) 14.9 K/ul (2.0-6.9); NEUTROPHILS % (AUTO) 91.8 % (42.2-75.2); PLATELET COUNT 190 10^3/uL (140-440); RDW COEFFICIENT OF VARIATION 13.9 % (11.6-14.8); RED BLOOD COUNT 4.18 10^6/ul (4.20-5.40); WHITE BLOOD COUNT 16.18 K/ul (4.6-10.2)
[2021-11-23 05:01] LABS: ALBUMIN 3.41 g/dL (3.5-5.0); ALKALINE PHOSPHATASE 128.7 U/L (38-126); BILIRUBIN,TOTAL 4.47 mg/dL (0.2-1.3); CALCIUM 7.5 mg/dL (8.4-10.2); CARBON DIOXIDE 20.9 mmol/L (22-30.0); CHLORIDE 108.8 mmol/L (98-107); CREATININE 2.49 mg/dL (0.60-1.30); GLUCOSE 104.3 mg/dL (74-106); POTASSIUM 5.04 mmol/L (3.5-5.1); TOTAL PROTEIN 6.5 g/dL (6.3-8.2)
[2021-11-23 05:29] LABS: PROTHROMBIN TIME 44.9 SEC (9.3-11.0)
[2021-11-23 05:38] LABS: ASPARTATE AMINO TRANSFERASE 5189.5 U/L (14-36)
[2021-11-23 05:39] LABS: ALANINE AMINOTRANSFERASE 5857.5 U/L (0-35)
[2021-11-23] MEDS ORDERED: CLEOCIN 600 MG/50 ML D5W 600 MG/50 ML BAG IV SCH (08:00)
[2021-11-23] MEDS ORDERED: DEXTROSE 5%-NS IV SOLUTION 1,000 ML IV SCH (08:30)
[2021-11-23] MEDS: LOVENOX SUBCUT SCH (08:56)
[2021-11-23] MEDS ORDERED: CLEOCIN 300 MG/50 ML D5W 300 MG/50 ML BAG IV SCH (09:00)
[2021-11-23] MEDS ORDERED: DEXTROSE 5% IV ONE (09:37)
[2021-11-23] MEDS ORDERED: ACETADOTE IV ONE (09:37)
[2021-11-23] MEDS ORDERED: WATER IV ONE (09:37)
[2021-11-23] MEDS ORDERED: LACTULOSE RC ONE (11:09)
--- NOTE | 2021-11-23 12:34 | PCM.DC ---
Final Diagnosis: tylenol overdose, suicide attempt, liver failure Physical Exam Appearance: Ill-appearing Ill-appearing: Mild Pain Distress: None Eyes: PENNY, EOMI and Conjunctiva clear ENT: Oropharynx normal Neck: Supple Respiratory: Airway patent, Breath sounds clear and Breath sounds equal Cardiovascular: RRR GI/: Soft and Nontender Musculoskeletal: No calf tenderness Skin: Warm and Dry Neurological: Disoriented, Alert to verbal and Alert to pain Psychiatric: Depressed (1) Metabolic acidosis: Status: Acute Code(s): E87.2 - Acidosis SNOMED Code(s): 10355065 (2) Overdose by acetaminophen: Status: Acute Code(s): T39.1X1A - Poisoning by 4-Aminophenol derivatives, accidental (unintentional), initial encounter SNOMED Code(s): 171499860 (3) Acute hypokalemia: Status: Acute Code(s): E87.6 - Hypokalemia SNOMED Code(s): 21462058 (4) Hypoglycemia: Status: Acute Code(s): E16.2 - Hypoglycemia, unspecified SNOMED Code(s): 583430548 (5) Acute liver failure: Status: Acute Code(s): K72.00 - Acute and subacute hepatic failure without coma SNOMED Code(s): 557114993 Reason for Hospitalization: suicide attempt, overdose Prognosis/Condition at Discharge: condition stable, prognosis poor Medications at Discharge: none Lab/Diagnostics: ast 5181, alt 5857, Tbil 9.4, INR 4.6, NH3 160, wbc 16, ekg st 106 no stemi Education Provided to Patient and Family: Today was my first contact w/ the pt who arouses to voice by is somnolent, +gag reflex is npo Follow-ups: none Discharge Disposition: Transfer Hospital Course: worsening liver failure suggested by increasing liver enzymes, is treat in consultation with Dr Feliz of [facility] [phone] to continue mucomyst 16 hr bag and start fomepizole, however [facility] does not carry fomepizole. pt maintained on 4liters nc, iv D5ns 125/hr, potassium discontinued today since K+ 5, clindamycin iv started for elevated wbc Plan: transfer accepted by Ryan Dean/Melissa at [facility] by air if weather permits
[2021-11-23 14:06] VITALS: BP 136/82; TEMP 96.7
--- NOTE | 2021-11-23 15:47 | DI ---
EXAM: Chest one view, frontal view only. HISTORY: Intubation. COMPARISON: 1 day prior. FINDINGS: Endotracheal tube now present projecting over the tracheal air column with tip at the leve l of the medial clavicles. The heart size is normal. There is no pulmonary vascular congestion. Th ere is a triangular consolidation in the left infrahilar region. Otherwise, the lungs are clear. No pleural effusion or pneumothorax is seen. No acute osseous abnormality is identified. IMPRESSION: 1. Endotracheal tube in satisfactory position. 2. New left basilar consolidation, most likely subsegmental atelectasis.
== END 2021-11-23 15:42 | DRG 917 ==
LOC: ED 08:11 → MEDSURG A 14:41
PROVIDERS: ADMIT Family Medicine; ATTEND Family Medicine
DX: T14.91XA Suicide attempt, initial encounter; Z91.51 Personal history of suicidal behavior; E16.2 Hypoglycemia, unspecified; E87.6 Hypokalemia; K72.00 Acute and subacute hepatic failure without coma; T39.1X1A Poisoning by 4-Aminophenol derivatives, accidental (unintentional), initial encounter; F17.210 Nicotine dependence, cigarettes, uncomplicated; Z20.822 Contact with and (suspected) exposure to COVID-19; E87.2 Acidosis; F32.A Depression, unspecified; Z79.899 Other long term (current) drug therapy; Z51.81 Encounter for therapeutic drug level monitoring